=== PATIENT | male | born 1950 | race Caucasian/White ===

== ENCOUNTER 2023-03-13 04:40 | Emergency (ER) | payer MEDICARE, SELFPAY ==
[2023-03-13 04:45] VITALS: O2SAT 97
[2023-03-13 04:46] VITALS: BP 170/86; PULSE 83; RESP 20; TEMP 36.7; O2SAT 97; BMI 22.8
--- NOTE | 2023-03-13 05:12 | CRLHL7_ITS ---
For Patients: As a result of the Cures Act, medical imaging exams and procedure reports are released immediately into your electronic medical record. You may view this report before your referring provider. If you have questions, please contact your health care provider. INDICATION: Cough. Dyspnea. TECHNIQUE: Two views COMPARISON: 12/12/2020. FINDINGS: Patient positioning: The patient is not rotated. Adequate inspiration. Heart and mediastinum: The patient is status post CABG. The cardiomediastinal silhouette is stable in appearance. Lungs and pleural spaces: Clear lungs and pleural spaces. Interval resolution of previously noted left basilar subsegmental atelectasis. Unchanged slight elevation of the left hemidiaphragm. Bones and soft tissues: No acute findings. IMPRESSION: No acute cardiopulmonary process or significant incidental findings. Dictated by Ezeqiuel Hernandez MD @ 03/13/2023 6:37:08 AM (Electronically Signed)
[2023-03-13 05:17] VITALS: BP 145/66; PULSE 88; RESP 20; O2SAT 97
--- NOTE | 2023-03-13 05:17 | ED.GENADULT ---
HPI - General Adult General Chief complaint: Shortness of Breath/Dyspnea Stated complaint: Chills, hard time breathing. Time Seen by Provider: 03/13/23 04:46 Source: patient Mode of arrival: ambulatory Limitations: no limitations History of Present Illness HPI narrative: Patient presents with increased weakness, shortness of breath with chest discomfort for the past couple of days. Initially started as body aches and cough 2 days ago. No true fevers but feels like he could have 1. Says that his legs feel weak, when he tried to get up and go to work this morning, his legs buckled under him. There was no true loss of consciousness, no racing heart or palpitations. No seizures. Has not hit his head. Does report a history of prior kidney problems. Does have a history of coronary artery disease with quadruple bypass 13 years ago. No recent stress testing but he has had stents within the last few years. He does not believe that he takes any blood thinners but I would find that kind of hard to believe. It also looks like he is not on a statin, he is unsure why that was stopped. Notes and generalized achiness through the neck, shoulders and chest. No exertional cardiac symptoms. No nausea vomiting, no diarrhea. Has not tried any medications to help with his symptoms prior to coming to the ED. cough is nonproductive, no history of DVT or PE. Past medical history notable mainly for coronary artery disease with hypertension. Home meds are as listed in he does confirm these. No allergies. ROS notable for generalized body aches, chest discomfort, shortness of breath, fatigue and lightheadedness as described above, otherwise denies times 12 systems. Related Data Home Medications Medication Instructions Recorded Confirmed hydrochlorothiazide 12.5 mg tablet 12.5 mg PO DAILY 03/13/23 03/13/23 lisinopril 20 mg tablet 40 mg PO DAILY 03/13/23 03/13/23 metformin 500 mg tablet 500 mg PO BID 03/13/23 03/13/23 metoprolol tartrate 50 mg tablet 50 mg PO BID 03/13/23 03/13/23 Allergies Allergy/AdvReac Type Severity Reaction Status Date / Time No Known Drug Allergies Allergy Verified 03/13/23 04:51 [facility] Medical History Dyslipidemia ?E78.5 - Hyperlipidemia, unspecified (ICD-10) ASCVD (arteriosclerotic cardiovascular disease) ?I25.10 - Atherosclerotic heart disease of [place] coronary artery without angina pectoris (ICD-10) Adenomatous colon polyp ?D12.6 - Benign neoplasm of colon, unspecified (ICD-10) Hypertension ?I10 - Essential (primary) hypertension (ICD-10) Type 2 diabetes mellitus ?E11.9 - Type 2 diabetes mellitus without complications (ICD-10) WARD (dyspnea on exertion) ?R06.09 - Other forms of dyspnea (ICD-10) Stage 3a chronic kidney disease ?N18.31 - Chronic kidney disease, stage 3a (ICD-10) Chronic bronchitis ?J42 - Unspecified chronic bronchitis (ICD-10) Depression ?F32.A - Depression, unspecified (ICD-10) History of coronary angiogram ?Z98.890 - Other specified postprocedural states (ICD-10) Surgical History S/P insertion of non-drug eluting coronary artery stent ?Z95.5 - Presence of coronary angioplasty implant and graft (ICD-10) History of esophagogastroduodenoscopy (EGD) ?Z98.890 - Other specified postprocedural states (ICD-10) History of colonoscopy ?Z98.890 - Other specified postprocedural states (ICD-10) History of coronary artery bypass graft ?Z95.1 - Presence of aortocoronary bypass graft (ICD-10) History of angioplasty ?Z98.62 - Peripheral vascular angioplasty status (ICD-10) Social History Smoking Status: Never smoker Second hand tobacco smoke exposure: No How often do you have a drink containing alcohol: never AUDIT-C Alcohol total score: 0 Non-prescribed substance use: denies use Exam Const: Vital Signs, click to edit/add: Vital Signs - 24 hr 03/13/23 04:45 03/13/23 04:46 03/13/23 05:17 Temperature 98.0 F Pulse Rate 88 Pulse Rate [Right Pulse Oximeter] 83 Respiratory Rate 20 20 Blood Pressure 145/66 H Blood Pressure [Ri ght Upper Arm] 170/86 H Pulse Oximetry 97 97 97 Oxygen Delivery Me thod Room Air Documenting provider has reviewed patient's vital signs: yes Common normals: no apparent distress and alert General appearance: cooperative, comfortable and well kempt HENMT: Common normals: normocephalic Head and scalp: normocephalic Face and sinus: normal facial exam Mouth: oral and palatal mucosa normal Throat: posterior oropharynx normal Eye: Common normals: conjunctivae normal General eye: normal appearance of both eyes Conjunctiva: conjunctiva(e) normal Neck & C-Spine: Common normals: full ROM and no lymphadenopathy Resp: Common normals: normal respiratory effort, no use of accessory muscles and clear to auscultation bilaterally Effort & inspection: able to speak in complete sentences Auscultation: clear to auscultation bilaterally Cardio: Common normals: regular rate, regular rhythm, S1 normal heart sound, S2 normal heart sound and no murmurs Rate: regular rate Rhythm: regular rhythm Heart sounds: S1 normal and S2 normal GI: Common normals: Normal to inspection, nondistended, normoactive bowel sounds present, soft to palpation, non-tender, no hepatosplenomegaly and no masses Palpation: soft and no hepatosplenomegaly Extremity: Common normals: normal to inspection, normal capillary refill and no pedal edema Neuro: Sensorium/orientation: alert Speech: speech normal Motor exam: no movement abnormalities noted Psych: Common normals: speech normal Appearance: well kempt Attitude: engaged Speech: normal speech Insight: insight good Judgement: judgment good Skin: Common normals: no rashes or lesions noted General skin exam: no rashes or lesions noted Course Course ED Course: Fatigue, myalgias, weakness in patient with coronary artery disease. No tachycardia but certainly could be masked by beta-lanette usage. Suspect viral illness, likely COVID her influenza a. Because of his cardiac history, I do recommend basic lab work, cardiac enzymes, EKG. Chest x-ray and viral swabs. Will room give 1 L of normal saline over 2 hours while we await labs. Differential diagnosis also includes pneumonia, congestive heart failure, acute coronary syndrome, renal failure, electrolyte abnormality, dehydration, among others. Reevaluation(s) Time of Reevaluation #1: 06:17 Reevaluation #1: Updated patient on findings. We discussed the elevated D-dimer. This may be elevated due to his chronic kidney disease or other pathology besides possibly a blood clot. Troponins are not elevated, there is no tachycardia. He is feeling better after fluids. I counseled patient that I cannot necessarily exclude a blood clot but I do have concerns with performing a CT with contrast based on his kidney function. At this time, he agrees that he would rather not have the scan performed as he does agree that his symptoms are most likely caused by a viral illness. I counseled patient that I cannot be sure without doing a scan and if he is feeling more short of breath, has hemoptysis or chest wall pain, I would be concerned and would recommend that he come back to the emergency department right away. He was agreeable to watchful waiting regarding this. We also discussed signs and symptoms of leg swelling and or other signs that there could be a blood clot and he verbalizes understanding and agreement and would like to defer the scan at this time. For his hypokalemia, we will give 40 mEq of potassium p.o. x1 here. I counseled patient that I can send additional potassium for the next few days to his pharmacy. He would prefer to replace this nutritionally. I counseled him that if he can eat at least 1 moderate size potato or banana daily for the next 5 days, this should be sufficient. Counseled him that being on lisinopril can increased dizziness and lightheadedness when you are ill. We are not detecting any hypotension here but I would like for him to hold his lisinopril for 1 day and drink lots of fluids today. He reports that he does feel quite a bit better after the IV fluids. Still has no chest pain or palpitations. His creatinine is a little elevated compared to 3 years ago but sounds consistent with his outpatient results per his description. Counseled that unfortunately there can be false negatives with the COVID and influenza tests. He certainly could have a different virus altogether. X-ray is not suspicious for heart failure or pneumonia. I would like him off of work for the next 3 days. Alarm symptoms that would warrant repeat ED presentation were extensively reviewed. All questions answered. We discussed the risks and benefits of Tamiflu and or Paxlovid. Since he has tested negative and also has comorbid kidney disease, I do not recommend those medications and he agrees with my rationale. Will discharge home with rest, increased fluids, nutritional potassium replacement and primary care follow-up if not improving in 3-4 days. Vital Signs Vital signs: Initial Vital Signs Pulse Oximetry 97 03/13/23 04:45 Vital Signs Pulse Oximetry 97 03/13/23 04:45 Temperature 98.0 F 03/13/23 04:46 Pulse Rate 88 03/13/23 05:17 Respiratory Rate 20 03/13/23 05:17 Blood Pressure 145/66 H 03/13/23 05:17 Pulse Oximetry 97 03/13/23 05:17 Oxygen Delivery Method Room Air 03/13/23 04:46 Medications Administered Medications: Generic Name Dose Route Start Last Admin Trade Name Freq PRN Reason Stop Dose Admin Sodium Chloride 1,000 mls @ 500 mls/hr 03/13/23 05:13 03/13/23 05:25 0.9 % Sodium Chloride 1000 Ml IV 03/13/23 07:12 500 mls/hr .Q2H LOUANN Administration Discontinued Medications Generic Name Dose Route Start Last Admin Trade Name Freq PRN Reason Stop Dose Admin Acetaminophen 1,000 mg 03/13/23 05:23 03/13/23 05:26 Acetaminophen 500 Mg Tablet PO 03/13/23 05:24 1,000 mg ONCE ONE Administration Medical Decision Making Lab Data Lab results reviewed: Yes I reviewed the patient's lab results Lab results narrative: Mildly elevated inflammatory markers, no leukocytosis. Elevated D-dimer in the setting of chronic kidney disease. Creatinine elevated at 1.9 compared to baseline 3 years ago of 1.4, patient reported that this is similar to his outpatient levels. Mild hypokalemia, will be replaced here in the ED. Labs: Lab Results 03/13/23 03/13/23 03/13/23 Range/Units 04:47 05:12 05:20 WBC 7.20 (4.50-11.00) K/uL RBC 4.46 (4.30-5.90) m/uL Hgb 13.3 L (13.5-17.5) gm/dL Hct 39.4 (37.0-53.0) % MCV 88 (80-100) fL MCH 30 (26-34) pg MCHC 34 (32-36) gm/dL RDW Coeff of [place] 14.0 (11.5-15.5) % Plt Count 184 (140-440) K/uL Neut % (Auto) 87.2 H (42.0-72.0) % Lymph % (Auto) 4.0 L (20-44) % [place] % (Auto) 7.5 (0.0-11.0) % Eos % (Auto) 1.0 (0.0-7.0) % Baso % (Auto) 0.0 (0.0-3.0) % Neut # (Auto) 6.30 (1.7-7.0) K/uL Lymph # (Auto) 0.30 L (0.90-2.90) K/uL [place] # (Auto) 0.50 (0.00-0.90) K/UL Eos # (Auto) 0.07 (0.00-0.50) K/uL Baso # (Auto) 0.00 (0.00-0.30) K/uL Abs Immat Gran (auto) 0.02 (0.00-0.30) K/uL Imm/Tot Granulo (auto) 0.3 % D-Dimer Quant (PE/DVT) 1.85 H (0.00-0.50) ug/ml Sodium 137 (135-149) mmol/L Potassium 3.0 L (3.6-5.1) mmol/L Chloride 97 (96-114) mmol/L Carbon Dioxide 28 (20-32) mmol/L Anion Gap 12 (7-15) mEq/L BUN 30 (7-30) mg/dL Creatinine 1.9 H (0.5-1.5) mg/dL Estimated Creat Clear 33.32 Estimated GFR 37 ml/min Glucose 228 H (60-115) mg/dL Lactate 2.6 H (0.5-1.9) mmol/L Calcium 9.1 (8.4-10.6) mg/dL Total Bilirubin 1.4 (0.1-1.5) mg/dL AST 40 H (12-35) U/L ALT 31 (4-50) U/L Alkaline Phosphatase 116 (40-150) U/L Troponin I 0.01 (0.01-0.04) ng/mL C-Reactive Protein 6.3 H (0.5-1.0) mg/dL Total Protein 7.6 (6.0-8.3) g/dL Albumin 4.2 (3.3-5.0) g/dL SARS-CoV-2 (PCR) Negative SARS-CoV-2 (Negative) Influenza Type A (PCR) Negative PCR FLU A (Negative) Influenza Type B (PCR) Negative PCR FLU B (Negative) RSV (PCR) Negative PCR RSV (Negative) POC Troponin I 0.01 (0.01-0.04) ng/ml Imaging Data Chest x-ray: Attestation: I have reviewed the pertinent imaging results. My impression: No infiltrates, congestive heart failure or effusions. Radiologist's impression: Lungs and pleural spaces: Clear lungs and pleural spaces. Interval resolution of previously noted left basilar subsegmental atelectasis. Unchanged slight elevation of the left hemidiaphragm. Bones and soft tissues: No acute findings. IMPRESSION: No acute cardiopulmonary process or significant incidental findings. ECG Data Attestation: I personally reviewed and interpreted this ECG as follows: Prior ECG tracings: available for review Interpretation: Right bundle branch block, unchanged from past EKG reviewed from 12/12/2020. Overall sinus rhythm low, rate of 86 with otherwise normal intervals and no obvious signs of acute ST or T-wave abnormalities to indicate ischemia. Normal axis. Discharge Plan Discharge Clinical Impression: Influenza-like illness Patient Disposition: Home, Self-Care Condition: Stable Instructions: Influenza (DC) Additional Instructions: As we discussed, your symptoms seem consistent with either influenza or COVID. Unfortunately, these swabs are not perfect. Your tests for this illness are negative but the swabs can miss up to 1/3 of cases. It is okay for you to continue home COVID testing if you would really like to know if you are COVID positive, but this would not change my management today. There are medications which can reduce the intensity and severity of both influenza and COVID but they can be dangerous in the setting of kidney disease. In your case, I would not recommend that we use those medications. Your blood clotting test is a bit elevated. Without swelling in the legs, changes on your chest x-ray or other findings in the blood work that are suspicious, we have decided together not to pursue this further. There is a scan that can be done to look for blood clots in the lungs more closely but it does give risk to your kidneys. Since there are no signs of elevated troponins, elevated heart rate, swelling in your legs, low oxygen levels or other changes, I think we should hold off on looking for blood clots. I would like you off of work for the next 3 days minimum. If you are feeling better on , you could attempt to go back to work. If you need a longer extension of your leave of absence, this would need to come from your primary care doctor. Drink plenty of fluids. Because your potassium levels were a bit low, your given potassium tablets to take here in the ER. I would like for you to eat at least 1 banana and or potato daily for the next 5 days. I suspect that you felt a little more lightheaded in the setting of your illness because you are on lisinopril. I would like for you to hold off taking this medication for just 1 day. Please continue to take your hydrochlorothiazide and metoprolol as prescribed. If your symptoms have not started to improve by Monday, I would recommend that you call your primary care provider for a follow-up appointment. I would like her kidney function rechecked if you are not improving early next week with your potassium and additional testing if you are not improving. If you have any severe shortness of breath or severe weakness, you should come back to the emergency department. Activity Level: Activity as Tolerated Discharge Diet: Regular Prescriptions: No Action metformin 500 mg tablet 500 mg PO BID lisinopril 20 mg tablet 40 mg PO DAILY metoprolol tartrate 50 mg tablet 50 mg PO BID hydrochlorothiazide 12.5 mg tablet 12.5 mg PO DAILY Follow Up/Referrals: Leigh Siegel DO [Primary Care Provider] - Stand Alone Forms: [facility] Info Instructions
[2023-03-13 05:21] LABS: Lactate* 2.6 mmol/L (0.5-1.9)
[2023-03-13 05:22] LABS: Eosinophils Absolute Auto 0.07 K/uL (0.00-0.50); Hematocrit 39.4 % (37.0-53.0); Hemoglobin* 13.3 gm/dL (13.5-17.5); Immature Granulocytes Abs Auto 0.02 K/uL (0.00-0.30); Immature Granulocytes Pct Auto 0.3 %; Mean Corpuscular HGB Conc 34 gm/dL (32-36); Mean Corpuscular Hemoglobin 30 pg (26-34); Mean Corpuscular Volume 88 fL (80-100); Monocytes Percent Auto 7.5 % (0.0-11.0); Neutrophils Percent Auto 87.2 % (42.0-72.0); Platelet Count* 184 K/uL (140-440); Red Blood Count 4.46 m/uL (4.30-5.90)
[2023-03-13 05:25] LABS: PCR FLU A Negative PCR FLU A (Negative); PCR FLU B Negative PCR FLU B (Negative); PCR RSV Negative PCR RSV (Negative); SARS PCR* Negative SARS-CoV-2 (Negative)
[2023-03-13 05:25] LABS: Slide Review Reflex No
[2023-03-13] MEDS: 0.9 % SODIUM CHLORIDE 1000 ml 1,000 ML 500 ML IV (05:25)
[2023-03-13] MEDS: ACETAMINOPHEN 500 MG TABLET 1000 MG PO (05:26)
[2023-03-13 05:30] LABS: Troponin, Point-of-Care* 0.01 ng/ml (0.01-0.04)
[2023-03-13 05:37] LABS: Albumin* 4.2 g/dL (3.3-5.0); Chloride* 97 mmol/L (96-114); Sodium* 137 mmol/L (135-149)
[2023-03-13 05:39] LABS: Bilirubin Total* 1.4 mg/dL (0.1-1.5); Creatinine* 1.9 mg/dL (0.5-1.5); Est. Creatinine Clearance* 33.32; Estimated Glomerular Filt Rate 37 ml/min
[2023-03-13 05:40] LABS: Alanine Aminotransferase* 31 U/L (4-50); Alkaline Phosphatase* 116 U/L (40-150); Anion Gap 12 mEq/L (7-15); Aspartate Amino Transferase* 40 U/L (12-35); Blood Urea Nitrogen* 30 mg/dL (7-30); Carbon Dioxide* 28 mmol/L (20-32); Glucose* 228 mg/dL (60-115); Total Protein* 7.6 g/dL (6.0-8.3)
[2023-03-13 05:41] LABS: Calcium* 9.1 mg/dL (8.4-10.6)
[2023-03-13 05:43] LABS: C Reactive Protein* 6.3 mg/dL (0.5-1.0); D Dimer Quantitative* 1.85 ug/ml (0.00-0.50)
[2023-03-13 05:59] LABS: Troponin I* 0.01 ng/mL (0.01-0.04)
[2023-03-13] MEDS: POTASSIUM CHLORIDE 10 MEQ CAPSULE ER 40 MEQ PO (06:30)
[2023-03-13 06:45] VITALS: BP 154/84; PULSE 87; RESP 20; TEMP 36.9; O2SAT 97
[2023-03-13 06:47] VITALS: BP 154/84; PULSE 87; RESP 20; TEMP 36.9
== END 2023-03-13 06:30 | disposition home or self-care (01) ==
PROVIDERS: Emergency Provider Family Medicine; PCP Family Medicine
DX: J10.1 Influenza due to other identified influenza virus with other respiratory manifestations (principal)
CPT/HCPCS: 36415; 71046; 80053; 81003; 83605; 84484; 85025; 85379; 86140; 87631; 93005; 94761; 99284; A9270; J7030

== ENCOUNTER 2023-03-16 07:06 | Emergency (ER) | payer MEDICARE, SELFPAY ==
[2023-03-16 07:12] VITALS: BP 147/88; PULSE 86; RESP 18; TEMP 37; O2SAT 96; BMI 22.8
--- NOTE | 2023-03-16 07:20 | ED.DIZZY ---
HPI - Dizziness General Time Seen by Provider: 07:20 <Ashish Molina MD - Last Filed: 03/30/23 08:19> Date Seen: 03/16/23 <Ashish Molina MD - Last Filed: 03/30/23 08:19> Chief Complaint: Dizziness/Vertigo <Ashish Molina MD - Last Filed: 03/30/23 08:19> Stated Complaint: tight chest, light headead, weak <Ashish Molina MD - Last Filed: 03/30/23 08:19> Time Seen by Provider: 03/16/23 07:20 <Ashish Molina MD - Last Filed: 03/30/23 08:19> Source: patient, RN notes reviewed and old records reviewed <Ashish Molina MD - Last Filed: 03/30/23 08:19> Mode of arrival: ambulatory <Ashish Molina MD - Last Filed: 03/30/23 08:19> Limitations: no limitations <Ashish Molina MD - Last Filed: 03/30/23 08:19> History of Present Illness HPI Narrative: 72-year-old male who presents today with lightheadedness and weakness. Prior history of coronary disease and stent placement, CABG, chronic kidney disease. Patient was seen on March 13 with flu-like illness, negative evaluation at that time including normal EKG, normal CBC, slightly elevated creatinine and slight low potassium, respiratory panel negative. D-dimer was positive but no advanced imaging was done. Patient was feeling better and went to work today, got lightheaded, chest pain and shortness of breath, and vomited. Denies runny nose, sore throat, cough, abdominal pain, diarrhea. No room spinning dizziness. <Ashish Molina MD - Last Filed: 03/30/23 08:19> Related Data Home Medications: Home Medications Medication Instructions Recorded Confirmed hydrochlorothiazide 12.5 mg tablet 12.5 mg PO DAILY 03/13/23 03/16/23 lisinopril 20 mg tablet 40 mg PO DAILY 03/13/23 03/16/23 metformin 500 mg tablet 500 mg PO BID 03/13/23 03/16/23 metoprolol tartrate 50 mg tablet 50 mg PO BID 03/13/23 03/16/23 <Ashish Molina MD - Last Filed: 03/30/23 08:19> Allergies/Adverse Reactions: Allergies Allergy/AdvReac Type Severity Reaction Status Date / Time No Known Drug Allergies Allergy Verified 03/16/23 07:11 <Ashish Molina MD - Last Filed: 03/30/23 08:19> [facility] Medical History: Medical History Dyslipidemia ?E78.5 - Hyperlipidemia, unspecified (ICD-10) ASCVD (arteriosclerotic cardiovascular disease) ?I25.10 - Atherosclerotic heart disease of [place] coronary artery without angina pectoris (ICD-10) Adenomatous colon polyp ?D12.6 - Benign neoplasm of colon, unspecified (ICD-10) Hypertension ?I10 - Essential (primary) hypertension (ICD-10) Type 2 diabetes mellitus ?E11.9 - Type 2 diabetes mellitus without complications (ICD-10) WARD (dyspnea on exertion) ?R06.09 - Other forms of dyspnea (ICD-10) Stage 3a chronic kidney disease ?N18.31 - Chronic kidney disease, stage 3a (ICD-10) Chronic bronchitis ?J42 - Unspecified chronic bronchitis (ICD-10) Depression ?F32.A - Depression, unspecified (ICD-10) History of coronary angiogram ?Z98.890 - Other specified postprocedural states (ICD-10) <Ashish Molina MD - Last Filed: 03/30/23 08:19> Surgical History: Surgical History S/P insertion of non-drug eluting coronary artery stent ?Z95.5 - Presence of coronary angioplasty implant and graft (ICD-10) History of esophagogastroduodenoscopy (EGD) ?Z98.890 - Other specified postprocedural states (ICD-10) History of colonoscopy ?Z98.890 - Other specified postprocedural states (ICD-10) History of coronary artery bypass graft ?Z95.1 - Presence of aortocoronary bypass graft (ICD-10) History of angioplasty ?Z98.62 - Peripheral vascular angioplasty status (ICD-10) <Ashish Molina MD - Last Filed: 03/30/23 08:19> Social History: Social History Smoking Status: Never smoker Second hand tobacco smoke exposure: No How often do you have a drink containing alcohol: never AUDIT-C Alcohol total score: 0 Non-prescribed substance use: denies use <Ashish Molina MD - Last Filed: 03/30/23 08:19> Exam Narrative: Exam Narrative: General: Well-developed and well-nourished, no acute distress Head: Atraumatic and normocephalic Eyes: Pupils are equal reactive, extraocular motions intact, conjunctiva clear ENT: External nose and ears are normal, posterior pharynx without erythema or exudate Neck: No midline cervical tenderness, full spontaneous range of motion the neck, trachea midline, no adenopathy Heart: Regular rate and rhythm no murmurs or thrills Lungs: Clear to auscultation bilaterally without wheezes or crackles Abdomen: Soft, nontender, nondistended with active bowel sounds Musculoskeletal: No tenderness, deformity, or edema Neurologic: Awake, alert, and oriented x3, no gross focal neurologic deficits, cranial nerves intact as tested Psych: Mood and affect are appropriate Skin: No rashes <Ashish Molina MD - Last Filed: 03/30/23 08:19> Const: Vital Signs, click to edit/add: Vital Signs - 24 hr 03/16/23 07:12 03/16/23 08:00 03/16/23 09:05 Temperature 98.6 F Pulse Rate 76 Pulse Rate [Pulse Oximeter] 86 75 Respiratory Rate 18 16 Blood Pressure 138/80 Blood Pressure [Ri ght Upper Arm] 147/88 H 125/71 Pulse Oximetry 96 94 95 Oxygen Delivery Me thod Room Air Room Air 03/16/23 09:06 03/16/23 09:30 03/16/23 09:32 Temperature Pulse Rate 75 77 74 Pulse Rate [Pulse Oximeter] Respiratory Rate Blood Pressure 131/80 Blood Pressure [Ri ght Upper Arm] Pulse Oximetry 95 97 96 Oxygen Delivery Me thod <Ashish Molina MD - Last Filed: 03/30/23 08:19> Vital Signs, click to edit/add: Vital Signs - 24 hr 03/16/23 07:12 03/16/23 08:00 02/08/24 09:05 Temperature 98.6 F Pulse Rate 76 Pulse Rate [Pulse Oximeter] 86 75 Respiratory Rate 18 16 Blood Pressure 138/80 Blood Pressure [Ri ght Upper Arm] 147/88 H 125/71 Pulse Oximetry 96 94 95 Oxygen Delivery Me thod Room Air Room Air 03/16/23 09:06 03/16/23 09:30 03/16/23 09:32 Temperature Pulse Rate 75 77 74 Pulse Rate [Pulse Oximeter] Respiratory Rate Blood Pressure 131/80 Blood Pressure [Ri ght Upper Arm] Pulse Oximetry 95 97 96 Oxygen Delivery Me thod <Shabnam Rodarte MD - Last Filed: 03/16/23 13:50> Course Course ED Course: Patient seen examined, prior records reviewed. Patient recently seen with weakness, nausea, influenza like illness and negative evaluation other than positive D-dimer. Was feeling better but then went to work and became lightheaded, dizzy, with chest pain and shortness of breath, and vomited. Patient is well-appearing in the emergency department with stable vital signs. No abdominal pain or tenderness, no indication for abdominal CT at this time. Labs are ordered along with CT PE protocol as patient had a previously positive D-dimer but did not have CT scan at that time. Plan to sign out to oncoming provider at 8:00 AM. <Ashish Molina MD - Last Filed: 03/30/23 08:19> Patient seen examined, prior records reviewed. Patient recently seen with weakness, nausea, influenza like illness and negative evaluation other than positive D-dimer. Was feeling better but then went to work and became lightheaded, dizzy, with chest pain and shortness of breath, and vomited. Patient is well-appearing in the emergency department with stable vital signs. No abdominal pain or tenderness, no indication for abdominal CT at this time. Labs are ordered along with CT PE protocol as patient had a previously positive D-dimer but did not have CT scan at that time. Plan to sign out to oncoming provider at 8:00 AM. CBC returned with a normal white cell count, hemoglobin is 11.6, down from 13.3 three days ago. Normal platelet count. Chemistries are unchanged from a couple of days ago, he remains hypokalemic with a potassium of 3 and an elevated creatinine at 1.9. Chest CT, PE protocol reveals some bronchial thickening, no PE or pneumonia. UA is positive for 2+ protein, 2+ blood, greater than 8 urinobiligen. Unfortunately, I do not have a baseline to compare this to. Because of this we have sent out for a peripheral smear of the patient's CBC. I did review LFTs from previous visit on 03/13/2023, LFTs were unremarkable at that time. <Shabnam Rodarte MD - Last Filed: 03/16/23 13:50> Reevaluation(s) Time of Reevaluation #1: 08:00 <Ashish Molina MD - Last Filed: 03/30/23 08:19> Reevaluation #1: Signout to oncoming provider. <Ashish Molina MD - Last Filed: 03/30/23 08:19> Vital Signs Vital signs: Initial Vital Signs Temperature 98.6 F 03/16/23 07:12 Temperature Source Temporal Artery Scan 03/16/23 07:12 Pulse Rate 86 03/16/23 07:12 Respiratory Rate 18 03/16/23 07:12 Blood Pressure 147/88 H 03/16/23 07:12 Blood Pressure Mean 107 H 03/16/23 07:12 Blood Pressure Position Sitting 03/16/23 07:12 Pulse Oximetry 96 03/16/23 07:12 Oxygen Delivery Method Room Air 03/16/23 07:12 Vital Signs Temperature 98.6 F 03/16/23 07:12 Pulse Rate 86 03/16/23 07:12 Respiratory Rate 18 03/16/23 07:12 Blood Pressure 147/88 H 03/16/23 07:12 Pulse Oximetry 96 03/16/23 07:12 Oxygen Delivery Method Room Air 03/16/23 07:12 Temperature 98.6 F 03/16/23 07:12 Pulse Rate 74 03/16/23 09:32 Respiratory Rate 16 03/16/23 08:00 Blood Pressure 131/80 03/16/23 09:32 Pulse Oximetry 96 03/16/23 09:32 Oxygen Delivery Method Room Air 03/16/23 08:00 <Ashish Molina MD - Last Filed: 03/30/23 08:19> Initial Vital Signs Temperature 98.6 F 03/16/23 07:12 Temperature Source Temporal Artery Scan 03/16/23 07:12 Pulse Rate 86 03/16/23 07:12 Respiratory Rate 18 03/16/23 07:12 Blood Pressure 147/88 H 03/16/23 07:12 Blood Pressure Mean 107 H 03/16/23 07:12 Blood Pressure Position Sitting 03/16/23 07:12 Pulse Oximetry 96 03/16/23 07:12 Oxygen Delivery Method Room Air 03/16/23 07:12 Vital Signs Temperature 98.6 F 03/16/23 07:12 Pulse Rate 86 03/16/23 07:12 Respiratory Rate 18 03/16/23 07:12 Blood Pressure 147/88 H 03/16/23 07:12 Pulse Oximetry 96 03/16/23 07:12 Oxygen Delivery Method Room Air 03/16/23 07:12 Temperature 98.6 F 03/16/23 07:12 Pulse Rate 74 03/16/23 09:32 Respiratory Rate 16 03/16/23 08:00 Blood Pressure 131/80 03/16/23 09:32 Pulse Oximetry 96 03/16/23 09:32 Oxygen Delivery Method Room Air 03/16/23 08:00 <Shabnam Rodarte MD - Last Filed: 03/16/23 13:50> Medications Administered Medications: Discontinued Medications Generic Name Dose Route Start Last Admin Trade Name Freq PRN Reason Stop Dose Admin Potassium Chloride 40 meq 03/16/23 08:26 03/16/23 08:57 Potassium Chloride 10 Meq Capsule Er PO 03/16/23 08:27 40 meq ONCE ONE Administration <Ashish Molina MD - Last Filed: 03/30/23 08:19> Discontinued Medications Generic Name Dose Route Start Last Admin Trade Name Freq PRN Reason Stop Dose Admin Potassium Chloride 40 meq 03/16/23 08:26 03/16/23 08:57 Potassium Chloride 10 Meq Capsule Er PO 03/16/23 08:27 40 meq ONCE ONE Administration <Shabnam Rodarte MD - Last Filed: 03/16/23 13:50> MDM - Dizziness MDM Narrative Medical decision making narrative: 72-year-old male, not feeling well. No acute findings today. We did rule out PE and pneumonia. Recent testing for COVID, influenza and RSV negative. Cardiac monitoring unremarkable, normal troponin and unchanged EKG. Patient did not have any neurologic deficits. Currently asymptomatic, aside from feeling fatigued. Drop in hemoglobin, patient did receive IV fluid last time he was here. However, I do think this needs to be followed up on. A repeat hemoglobin is recommended for Monday. Of note, patient states that his last colonoscopy was about 5 years ago. We discussed rest, nutrition, fluid hydration and reasons to return to the ER. <Shabnam Rodarte MD - Last Filed: 03/16/23 13:50> Medical Records Attestation: I reviewed the patient's medical records. <Shabnam Rodarte MD - Last Filed: 03/16/23 13:50> Lab Data Attestation: I reviewed the patient's lab results. <Shabnam Rodarte MD - Last Filed: 03/16/23 13:50> Labs: Lab Results 03/16/23 03/16/23 Range/Units 07:35 09:04 WBC 5.32 (4.50-11.00) K/uL RBC 3.82 L (4.30-5.90) m/uL Hgb 11.6 L (13.5-17.5) gm/dL Hct 33.7 L (37.0-53.0) % MCV 88 (80-100) fL MCH 30 (26-34) pg MCHC 34 (32-36) gm/dL RDW Coeff of [place] 13.9 (11.5-15.5) % Plt Count 165 (140-440) K/uL Neut % (Auto) 85.3 H (42.0-72.0) % Lymph % (Auto) 6.4 L (20-44) % [place] % (Auto) 7.0 (0.0-11.0) % Eos % (Auto) 0.9 (0.0-7.0) % Baso % (Auto) 0.0 (0.0-3.0) % Neut # (Auto) 4.50 (1.7-7.0) K/uL Lymph # (Auto) 0.30 L (0.90-2.90) K/uL [place] # (Auto) 0.40 (0.00-0.90) K/UL Eos # (Auto) 0.05 (0.00-0.50) K/uL Baso # (Auto) 0.00 (0.00-0.30) K/uL Abs Immat Gran (auto) 0.02 (0.00-0.30) K/uL Imm/Tot Granulo (auto) 0.4 % Peripher Smr Path Cons See Scanned Report Absolute Retic 0.05 (0.03-0.08) # Percent Retic 1.2 (0.5-2.0) % Immature Retic Fraction 12.1 (2.3-13.4) % Retic Hgb Equivalent 26.1 L (29.0-35.0) pg Sodium 136 (135-149) mmol/L Potassium 3.0 L (3.6-5.1) mmol/L Chloride 98 (96-114) mmol/L Carbon Dioxide 24 (20-32) mmol/L Anion Gap 14 (7-15) mEq/L BUN 29 (7-30) mg/dL Creatinine 1.9 H (0.5-1.5) mg/dL Estimated Creat Clear 33.32 Estimated GFR 37 ml/min Glucose 261 H (60-115) mg/dL Calcium 9.1 (8.4-10.6) mg/dL Magnesium 1.5 (1.5-2.6) mg/dL NT-Pro-B Natriuret Pep 1960 pg/mL Urine Color [place] A (Yellow) Urine Appearance Slightly Cloudy A (Clear) Urine pH 5.5 (5.0-8.5) Ur Specific [place] 1.015 (1.000-1.030) Urine Protein 2+ A (Negative) Urine Glucose (UA) Negative (Negative) Urine Ketones Negative (Negative) Urine Blood 2+ A (Negative) Urine Nitrite Negative (Negative) Urine Bilirubin 1+ A (Negative) Urine Urobilinogen >=8.0 A (0.2-1.0) Ur Leukocyte Esterase Negative (Negative) Urine RBC 0-2 (0-2) Urine WBC 0-2 (0-5) Ur Squamous Epith Cells None (None-Few) Amorphous Sediment Moderate A (None) Urine Bacteria Few A (None) POC Troponin I 0.00 L (0.01-0.04) ng/ml <Ashish Molina MD - Last Filed: 03/30/23 08:19> Lab Results 03/16/23 03/16/23 Range/Units 07:35 09:04 WBC 5.32 (4.50-11.00) K/uL RBC 3.82 L (4.30-5.90) m/uL Hgb 11.6 L (13.5-17.5) gm/dL Hct 33.7 L (37.0-53.0) % MCV 88 (80-100) fL MCH 30 (26-34) pg MCHC 34 (32-36) gm/dL RDW Coeff of [place] 13.9 (11.5-15.5) % Plt Count 165 (140-440) K/uL Neut % (Auto) 85.3 H (42.0-72.0) % Lymph % (Auto) 6.4 L (20-44) % [place] % (Auto) 7.0 (0.0-11.0) % Eos % (Auto) 0.9 (0.0-7.0) % Baso % (Auto) 0.0 (0.0-3.0) % Neut # (Auto) 4.50 (1.7-7.0) K/uL Lymph # (Auto) 0.30 L (0.90-2.90) K/uL [place] # (Auto) 0.40 (0.00-0.90) K/UL Eos # (Auto) 0.05 (0.00-0.50) K/uL Baso # (Auto) 0.00 (0.00-0.30) K/uL Abs Immat Gran (auto) 0.02 (0.00-0.30) K/uL Imm/Tot Granulo (auto) 0.4 % Peripher Smr Path Cons See Scanned Report Absolute Retic 0.05 (0.03-0.08) # Percent Retic 1.2 (0.5-2.0) % Immature Retic Fraction 12.1 (2.3-13.4) % Retic Hgb Equivalent 26.1 L (29.0-35.0) pg Sodium 136 (135-149) mmol/L Potassium 3.0 L (3.6-5.1) mmol/L Chloride 98 (96-114) mmol/L Carbon Dioxide 24 (20-32) mmol/L Anion Gap 14 (7-15) mEq/L BUN 29 (7-30) mg/dL Creatinine 1.9 H (0.5-1.5) mg/dL Estimated Creat Clear 33.32 Estimated GFR 37 ml/min Glucose 261 H (60-115) mg/dL Calcium 9.1 (8.4-10.6) mg/dL Magnesium 1.5 (1.5-2.6) mg/dL NT-Pro-B Natriuret Pep 1960 pg/mL Urine Color [place] A (Yellow) Urine Appearance Slightly Cloudy A (Clear) Urine pH 5.5 (5.0-8.5) Ur Specific [place] 1.015 (1.000-1.030) Urine Protein 2+ A (Negative) Urine Glucose (UA) Negative (Negative) Urine Ketones Negative (Negative) Urine Blood 2+ A (Negative) Urine Nitrite Negative (Negative) Urine Bilirubin 1+ A (Negative) Urine Urobilinogen >=8.0 A (0.2-1.0) Ur Leukocyte Esterase Negative (Negative) Urine RBC 0-2 (0-2) Urine WBC 0-2 (0-5) Ur Squamous Epith Cells None (None-Few) Amorphous Sediment Moderate A (None) Urine Bacteria Few A (None) POC Troponin I 0.00 L (0.01-0.04) ng/ml <Shabnam Rodarte MD - Last Filed: 03/16/23 13:50> Imaging Data Chest CT PE: Attestation: I have reviewed the pertinent imaging results. <Shabnam Rodarte MD - Last Filed: 03/16/23 13:50> Radiologist's impression: Chest pain, dyspnea Technique: Volumetric multidetector CT images of the chest were obtained after the administration of IV contrast. 95 cc Isovue 370 low osmolar intravenous contrast Comparison: None available. Findings: The thoracic inlet and thyroid gland are unremarkable. The thoracic aorta is non aneurysmal with scattered atherosclerotic calcification. There is prior median sternotomy and coronary artery bypass grafting. There is no central filling defect to suggest pulmonary embolism. There is no mediastinal, hilar or axillary adenopathy. There is mild to moderate central bronchial thickening with minimal mucoid impaction of the lower lobe bronchi. There is peripheral atelectasis and parenchymal scar. There is no pneumothorax or pleural effusion. There is no evidence of pulmonary mass or suspicious pulmonary nodule. The partially visualized upper abdominal viscera are within normal limits. The thoracic vertebral body heights are grossly maintained with minimal endplate subchondral cystic changes and Schmorl`s defects. There is no significant spondylolisthesis or displaced fracture. Impression: There is mild to moderate central bronchial thickening. Minimal dependent basilar atelectasis. No evidence of dense consolidation or pulmonary embolus. <Shabnam Rodarte MD - Last Filed: 03/16/23 13:50> ECG Data Attestation: I personally reviewed and interpreted this ECG as follows: <Ashish Molina MD - Last Filed: 03/30/23 08:19> ECG interpretation date: 03/16/23 <Ashish Molina MD - Last Filed: 03/30/23 08:19> ECG interpretation time: 07:23 <Ashish Molina MD - Last Filed: 03/30/23 08:19> Prior ECG tracings: available for review <Ashish Molina MD - Last Filed: 03/30/23 08:19> Interpretation: Performed at 7:23 a.m. demonstrates sinus rhythm right bundle-branch block, nonspecific T-wave changes, rate 81, QTC 478, IL 200. Compared to prior March 13, no acute change <Ashish Molina MD - Last Filed: 03/30/23 08:19> Discharge Plan Discharge Clinical Impression: Lightheadedness, Nausea and vomiting <Ashish Molina MD - Last Filed: 03/30/23 08:19> Patient Disposition: Home, Self-Care <Ashish Molina MD - Last Filed: 03/30/23 08:19> Condition: Stable <Ashish Molina MD - Last Filed: 03/30/23 08:19> Additional Instructions: Make sure you are resting, increasing your fluid intake and eating nutritious meals over the next few days. I do recommend you follow-up with your primary care provider on Monday or Monday and have your hemoglobin rechecked. You should also have a repeat urine test. If you feel that you are getting worse instead of better, return to the ER. <Ashish Molina MD - Last Filed: 03/30/23 08:19> Prescriptions: No Action metformin 500 mg tablet 500 mg PO BID lisinopril 20 mg tablet 40 mg PO DAILY metoprolol tartrate 50 mg tablet 50 mg PO BID hydrochlorothiazide 12.5 mg tablet 12.5 mg PO DAILY <Ashish Molina MD - Last Filed: 03/30/23 08:19> Follow Up/Referrals: Leigh Sieegl DO [Primary Care Provider] - <Ashish Molina MD - Last Filed: 03/30/23 08:19> Stand Alone Forms: [facility] Info Instructions <Ashish Molina MD - Last Filed: 03/30/23 08:19>
--- NOTE | 2023-03-16 07:32 | CRLHL7_ITS ---
For Patients: As a result of the Century Cures Act, medical imaging exams and procedure reports are released immediately into your electronic medical record. You may view this report before your referring provider. If you have questions, please contact your health care provider. Indication: Chest pain, dyspnea Technique: Volumetric multidetector CT images of the chest were obtained after the administration of IV contrast. 95 cc Isovue 370 low osmolar intravenous contrast Comparison: None available. Findings: The thoracic inlet and thyroid gland are unremarkable. The thoracic aorta is non aneurysmal with scattered atherosclerotic calcification. There is prior median sternotomy and coronary artery bypass grafting. There is no central filling defect to suggest pulmonary embolism. There is no mediastinal, hilar or axillary adenopathy. There is mild to moderate central bronchial thickening with minimal mucoid impaction of the lower lobe bronchi. There is peripheral atelectasis and parenchymal scar. There is no pneumothorax or pleural effusion. There is no evidence of pulmonary mass or suspicious pulmonary nodule. The partially visualized upper abdominal viscera are within normal limits. The thoracic vertebral body heights are grossly maintained with minimal endplate subchondral cystic changes and Schmorl`s defects. There is no significant spondylolisthesis or displaced fracture. Impression: There is mild to moderate central bronchial thickening. Minimal dependent basilar atelectasis. No evidence of dense consolidation or pulmonary embolus. Please note that all CT scans at this facility use dose modulation, iterative reconstruction, and/or weight-based dosing when appropriate to reduce radiation dose to as low as reasonably achievable. Dictated by Ferdinand Mckinney MD @ 03/16/2023 9:20:13 AM (Electronically Signed)
[2023-03-16 07:57] LABS: Eosinophils Absolute Auto 0.05 K/uL (0.00-0.50); Eosinophils Percent Auto 0.9 % (0.0-7.0); Hematocrit 33.7 % (37.0-53.0); Hemoglobin* 11.6 gm/dL (13.5-17.5); Immature Granulocytes Abs Auto 0.02 K/uL (0.00-0.30); Immature Granulocytes Pct Auto 0.4 %; Lymphocytes Percent Auto 6.4 % (20-44); Mean Corpuscular HGB Conc 34 gm/dL (32-36); Mean Corpuscular Hemoglobin 30 pg (26-34); Mean Corpuscular Volume 88 fL (80-100); Neutrophils Percent Auto 85.3 % (42.0-72.0); Platelet Count* 165 K/uL (140-440); RDW Coefficient of Variation % 13.9 % (11.5-15.5); Red Blood Count 3.82 m/uL (4.30-5.90); White Blood Count* 5.32 K/uL (4.50-11.00)
[2023-03-16 08:00] VITALS: BP 125/71; PULSE 75; RESP 16; O2SAT 94
[2023-03-16 08:03] LABS: Chloride* 98 mmol/L (96-114); Sodium* 136 mmol/L (135-149)
[2023-03-16 08:06] LABS: Anion Gap 14 mEq/L (7-15); Blood Urea Nitrogen* 29 mg/dL (7-30); Carbon Dioxide* 24 mmol/L (20-32); Glucose* 261 mg/dL (60-115)
[2023-03-16 08:07] LABS: Calcium* 9.1 mg/dL (8.4-10.6); Magnesium* 1.5 mg/dL (1.5-2.6)
[2023-03-16 08:19] LABS: Creatinine* 1.9 mg/dL (0.5-1.5); Est. Creatinine Clearance* 33.32; Estimated Glomerular Filt Rate 37 ml/min
[2023-03-16 08:21] LABS: NT Pro B Type NatriureticPept* 1960 pg/mL
[2023-03-16 08:27] LABS: Slide Review Reflex No
[2023-03-16] MEDS: POTASSIUM CHLORIDE 10 MEQ CAPSULE ER 40 MEQ PO (08:57)
[2023-03-16 09:05] VITALS: BP 138/80; PULSE 76; O2SAT 95
[2023-03-16 09:06] VITALS: PULSE 75; O2SAT 95
[2023-03-16 09:15] LABS: Appearance Urine Slightly Cloudy (Clear); Bilirubin Urine 1+ (Negative); Blood Urine 2+ (Negative); Color Urine Amber (Yellow); Glucose Urine Negative (Negative); Ketones Urine Negative (Negative); Leukocyte Esterase Urine Negative (Negative); Nitrite Urine Negative (Negative); Protein Urine 2+ (Negative); Specific Gravity Urine 1.015 (1.000-1.030); Urobilinogen Urine >=8.0 (0.2-1.0); pH Urine 5.5 (5.0-8.5)
[2023-03-16 09:30] VITALS: PULSE 77; O2SAT 97
[2023-03-16 09:31] LABS: RBC Urine 0-2 (0-2); WBC Urine 0-2 (0-5)
[2023-03-16 09:32] VITALS: BP 131/80; PULSE 74; O2SAT 96
[2023-03-16 09:32] LABS: Amorphous Sediment Urine Moderate; Bacteria Urine Few
[2023-03-16 09:56] LABS: Immature Reticulocyte Fraction 12.1 % (2.3-13.4); Reticulocyte Hemoglobin Equivi 26.1 pg (29.0-35.0); Reticulocyte Percent 1.2 % (0.5-2.0); Reticulocytes Absolute 0.05 # (0.03-0.08)
== END 2023-03-16 09:54 | disposition home or self-care (01) ==
PROVIDERS: Family Medicine; Emergency Provider Family Medicine; PCP Family Medicine
DX: R42 Dizziness and giddiness (principal); R11.2 Nausea with vomiting, unspecified
CPT/HCPCS: 36415; 71275; 80048; 81001; 83735; 83880; 84484; 85025; 85045; 87086; 93005; 99284; 99285; A9270; Q9967

== ENCOUNTER 2023-10-15 10:20 | Emergency (ER) | payer MEDICARE, SELFPAY ==
[2023-10-15 10:24] VITALS: BP 187/86; PULSE 58; RESP 18; TEMP 36.6; O2SAT 98; BMI 25.1
--- NOTE | 2023-10-15 11:12 | CRLHL7_ITS ---
For Patients: As a result of the Century Cures Act, medical imaging exams and procedure reports are released immediately into your electronic medical record. You may view this report before your referring provider. If you have questions, please contact your health care provider. INDICATION: .R ARM NUMBNESS TECHNIQUE: Head CT without contrast. COMPARISON: None. FINDINGS: Periventricular areas of low attenuation, likely due to chronic small vessel ischemic changes. Generalized volume loss. Atherosclerosis. No intracranial hemorrhage. No discrete mass or mass effect. There is no midline shift. The basilar cisterns are patent. No hydrocephalus. The chinchilla-white matter interface is otherwise preserved. No acute osseous abnormality. No extracalvarial soft tissue abnormality. The mastoid air cells are clear. The paranasal sinuses are well-aerated. The visualized portions of the orbits and globes are unremarkable. IMPRESSION: No acute intracranial process per unenhanced head CT. Please note that all CT scans at this facility use dose modulation, iterative reconstruction, and/or weight-based dosing when appropriate to reduce radiation dose to as low as reasonably achievable. Dictated by Jimbo Aguillon MD @ 10/15/2023 12:03:41 PM (Electronically Signed)
--- NOTE | 2023-10-15 11:24 | ED_ITS ---
HPI - General Adult General Date Seen: 10/15/23 Chief complaint: Extremity Pain/Injury, Upper Stated complaint: R arm numb Time Seen by Provider: 10/15/23 10:54 Source: patient Mode of arrival: ambulatory Limitations: no limitations History of Present Illness HPI narrative: Patient is a 72-year-old male presenting to emergency department for right arm numbness. He states the numbness has been going on for the past 5 days. She states he 1st ready starts to notice it on 10/10/2023. Numbness seems to wax and wane. States that is always slightly now but sometimes the numbness seems worst . It is worst in his right shoulder. He also states sometimes the numbness makes it hard to hold pills in his hand because he can not feel the pills. States he is able to use his arm normally and only concern is the numbness. He does describe numbness as a tingling sensation. Denies ever having symptoms like this before. Does state he has been having shoulder issues for the past few months ago time injection about 1 month ago which seemed to help for a day but then the pain came back. Denies weakness to that arm. The lightheadedness, dizziness, headache, vision changes, nausea, abdominal pain, shortness of breath. Does states he has some very mild chest pain but that all the pain is radiating from his right shoulder to his chest. Related Data Home Medications ?Medication ?Instructions ?Recorded ?Confirmed hydrochlorothiazide 12.5 mg tablet 12.5 mg PO DAILY 03/13/23 03/16/23 lisinopril 20 mg tablet 40 mg PO DAILY 03/13/23 03/16/23 metformin 500 mg tablet 500 mg PO BID 03/13/23 03/16/23 metoprolol tartrate 75 mg tablet 75 mg PO BID 10/15/23 10/15/23 Previous Rx's ?Medication ?Instructions ?Recorded prednisone 20 mg tablet 40 mg (2 x 20 mg) PO DAILY #10 tabs 10/15/23 Allergies Allergy/AdvReac Type Severity Reaction Status Date / Time No Known Drug Allergies Allergy Verified 03/16/23 07:11 Review of Systems Status of ROS: Reports: 10 or more systems reviewed and unremarkable except as noted in History and below [facility] Medical History Dyslipidemia ?E78.5 - Hyperlipidemia, unspecified (ICD-10) ASCVD (arteriosclerotic cardiovascular disease) ?I25.10 - Atherosclerotic heart disease of [place] coronary artery without angina pectoris (ICD-10) Adenomatous colon polyp ?D12.6 - Benign neoplasm of colon, unspecified (ICD-10) Hypertension ?I10 - Essential (primary) hypertension (ICD-10) Type 2 diabetes mellitus ?E11.9 - Type 2 diabetes mellitus without complications (ICD-10) WARD (dyspnea on exertion) ?R06.09 - Other forms of dyspnea (ICD-10) Stage 3a chronic kidney disease ?N18.31 - Chronic kidney disease, stage 3a (ICD-10) Chronic bronchitis ?J42 - Unspecified chronic bronchitis (ICD-10) Depression ?F32.A - Depression, unspecified (ICD-10) History of coronary angiogram ?Z98.890 - Other specified postprocedural states (ICD-10) Surgical History S/P insertion of non-drug eluting coronary artery stent ?Z95.5 - Presence of coronary angioplasty implant and graft (ICD-10) History of esophagogastroduodenoscopy (EGD) ?Z98.890 - Other specified postprocedural states (ICD-10) History of colonoscopy ?Z98.890 - Other specified postprocedural states (ICD-10) History of coronary artery bypass graft ?Z95.1 - Presence of aortocoronary bypass graft (ICD-10) History of angioplasty ?Z98.62 - Peripheral vascular angioplasty status (ICD-10) Social History Smoking Status: Never smoker Second hand tobacco smoke exposure: No How often do you have a drink containing alcohol: never AUDIT-C Alcohol total score: 0 Non-prescribed substance use: denies use service: No Exam Narrative: Exam Narrative: Const: Well-nourished, Well-developed, in mild distress Eyes: PERRL, no conjunctival injection, and symmetrical lids HENT: Atraumatic external nose and ears. Moist mucous membranes. Neck: Symmetric, trachea midline, No thyromegaly. CVS: RRR, No murmurs or gallops. Peripheral pulses 2+ and equal in all extremities RESP: Unlabored respiratory effort. Clear to auscultation bilaterally. GI: Nontender/Nondistended, No rebound or guarding. MSK:Extremities w/o deformity, Normal Active ROM Skin: Warm, Dry. No rashes or lesions. Neuro: Normal Muscle tone, Cranial nerves 2-12 grossly intact, normal [id number], normal [id number], normal gait, normal strength 5/5 upper lower extremities bilaterally, decreased sensation noted to right upper extremity throughout the dermatomes worse and C6 dermatome. Rest of extremities have normal sensation, normal rapid alternating movements. Psych: Awake, Alert, & Oriented x3. Appropriate mood and affect. Const: Vital Signs, click to edit/add: Vital Signs - 24 hr 10/15/23 10:24 Temperature 97.9 F Pulse Rate [Right Pulse Oximeter] 58 L Respiratory Rate 18 Blood Pressure [Ri ght Upper Arm] 187/86 H Pulse Oximetry 98 Oxygen Delivery Me thod Room Air Course Vital Signs Vital signs: Initial Vital Signs Temperature 97.9 F 10/15/23 10:24 Temperature Source Temporal Artery Scan 10/15/23 10:24 Pulse Rate 58 L 10/15/23 10:24 Pulse Rhythm Regular 10/15/23 10:24 Pulse Strength 3+ Normal 10/15/23 10:24 Respiratory Rate 18 10/15/23 10:24 Blood Pressure 187/86 H 10/15/23 10:24 Blood Pressure Mean 119 H 10/15/23 10:24 Blood Pressure Position Sitting 10/15/23 10:24 Pulse Oximetry 98 10/15/23 10:24 Oxygen Delivery Method Room Air 10/15/23 10:24 Vital Signs Temperature 97.9 F 10/15/23 10:24 Pulse Rate 58 L 10/15/23 10:24 Respiratory Rate 18 10/15/23 10:24 Blood Pressure 187/86 H 10/15/23 10:24 Pulse Oximetry 98 10/15/23 10:24 Oxygen Delivery Method Room Air 10/15/23 10:24 Temperature 97.9 F 10/15/23 10:24 Pulse Rate 58 L 10/15/23 10:24 Respiratory Rate 18 10/15/23 10:24 Blood Pressure 187/86 H 10/15/23 10:24 Pulse Oximetry 98 10/15/23 10:24 Oxygen Delivery Method Room Air 10/15/23 10:24 Medical Decision Making [facility] Narrative Medical decision making narrative: Patient is a 72-year-old male presenting for right arm numbness. This may gone for 5 days. Due to the time frame code stroke was not called. Speaking to him though this does not seem like it is stroke related and more likely related to peripheral neuropathy. He is having some shoulder issues. Will do a head CT though to look for any abnormalities. He is also having chest pain but this all radiates from the shoulder and more likely to be from the shoulder and not related to any cardiac issues. Will do an EKG and troponin though. Will also do CBC, magnesium and BMP. Lab work returned showing no acute abnormalities. Creatinine appears to be improved compared to his baseline. CT scan of the head reviewed by myself and radiologist shows no acute abnormalities. I do not believe CTA or MRI is necessary as this is likely a peripheral neuropathy and he can follow-up outpatient. Will start him on steroids other see if that helps with the symptoms. He is agreeable to this plan. He does have follow-up already scheduled in 5 days. Will keep this. EKG also shows no concerning findings. Do not think repeat troponin is necessary as symptoms have been going on for several days and again pain is radiating from the shoulder to the chest and not vice versa. Lab Data Labs: Lab Results 10/15/23 Range/Units 12:05 WBC 5.82 (4.50-11.00) K/uL RBC 4.68 (4.30-5.90) m/uL Hgb 14.2 (13.5-17.5) gm/dL Hct 42.3 (37.0-53.0) % MCV 90 (80-100) fL MCH 30 (26-34) pg MCHC 34 (32-36) gm/dL RDW Coeff of [place] 14.2 (11.5-15.5) % Plt Count 211 (140-440) K/uL Neut % (Auto) 71.9 (42.0-72.0) % Lymph % (Auto) 15.8 L (20-44) % [place] % (Auto) 7.2 (0.0-11.0) % Eos % (Auto) 4.6 (0.0-7.0) % Baso % (Auto) 0.3 (0.0-3.0) % Neut # (Auto) 4.18 (1.7-7.0) K/uL Lymph # (Auto) 0.90 (0.90-2.90) K/uL [place] # (Auto) 0.40 (0.00-0.90) K/UL Eos # (Auto) 0.27 (0.00-0.50) K/uL Baso # (Auto) 0.02 (0.00-0.30) K/uL Abs Immat Gran (auto) 0.01 (0.00-0.30) K/uL Imm/Tot Granulo (auto) 0.2 % Sodium 139 (135-149) mmol/L Potassium 4.0 (3.6-5.1) mmol/L Chloride 105 (96-114) mmol/L Carbon Dioxide 28 (20-32) mmol/L Anion Gap 6 L (7-15) mEq/L BUN 19 (7-30) mg/dL Creatinine 1.6 H (0.5-1.5) mg/dL Estimated Creat Clear 39.78 Estimated GFR 45 ml/min Glucose 100 (60-115) mg/dL Calcium 9.4 (8.4-10.6) mg/dL Magnesium 2.0 (1.5-2.6) mg/dL POC Troponin I 0.01 (0.01-0.04) ng/ml Imaging Data CT scan - head: Attestation: I have reviewed the pertinent imaging results. Radiologist's impression: No acute intracranial process per unenhanced head CT. Please note that all CT scans at this facility use dose modulation, iterative reconstruction, and/or weight-based dosing when appropriate to reduce radiation dose to as low as reasonably achievable. Dictated by Jimbo Aguillon MD @ 10/15/2023 12:03:41 PM ECG Data Attestation: I personally reviewed and interpreted this ECG as follows: Prior ECG tracings: available for review Interpretation: Sinus bradycardia with first-degree AV block, normal QT interval, normal axis, no ST or T-wave abnormalities. There is a right bundle-branch block. Appears similar previous EKG on file Discharge Plan Discharge Clinical Impression: Radiculopathy affecting upper extremity Patient Disposition: Home, Self-Care Condition: Stable Instructions: Paresthesia (ED) Additional Instructions: Keep your appointment scheduled for 10/19 to primary care provider and mention yo ur right arm numbness. Use the steroids as directed. Return to emergency department if he does start developing any other neurological symptoms. Prescriptions: New prednisone 20 mg tablet 40 mg PO DAILY Qty: 10 0RF No Action metformin 500 mg tablet 500 mg PO BID lisinopril 20 mg tablet 40 mg PO DAILY hydrochlorothiazide 12.5 mg tablet 12.5 mg PO DAILY metoprolol tartrate 75 mg tablet 75 mg PO BID Follow Up/Referrals: Leigh Siegel DO [Primary Care Provider] - Stand Alone Forms: [employer] Info Instructions
[2023-10-15 12:12] LABS: Basophils Absolute Auto 0.02 K/uL (0.00-0.30); Basophils Percent Auto 0.3 % (0.0-3.0); Eosinophils Absolute Auto 0.27 K/uL (0.00-0.50); Eosinophils Percent Auto 4.6 % (0.0-7.0); Hematocrit 42.3 % (37.0-53.0); Hemoglobin* 14.2 gm/dL (13.5-17.5); Immature Granulocytes Abs Auto 0.01 K/uL (0.00-0.30); Immature Granulocytes Pct Auto 0.2 %; Lymphocytes Percent Auto 15.8 % (20-44); Mean Corpuscular HGB Conc 34 gm/dL (32-36); Mean Corpuscular Hemoglobin 30 pg (26-34); Mean Corpuscular Volume 90 fL (80-100); Monocytes Percent Auto 7.2 % (0.0-11.0); Neutrophils Absolute Auto 4.18 K/uL (1.7-7.0); Neutrophils Percent Auto 71.9 % (42.0-72.0); Platelet Count* 211 K/uL (140-440); RDW Coefficient of Variation % 14.2 % (11.5-15.5); Red Blood Count 4.68 m/uL (4.30-5.90); White Blood Count* 5.82 K/uL (4.50-11.00)
[2023-10-15 12:22] LABS: Slide Review Reflex No
[2023-10-15 12:34] LABS: Chloride* 105 mmol/L (96-114); Sodium* 139 mmol/L (135-149)
[2023-10-15 12:37] LABS: Anion Gap 6 mEq/L (7-15); Blood Urea Nitrogen* 19 mg/dL (7-30); Calcium* 9.4 mg/dL (8.4-10.6); Carbon Dioxide* 28 mmol/L (20-32); Creatinine* 1.6 mg/dL (0.5-1.5); Est. Creatinine Clearance* 39.78; Estimated Glomerular Filt Rate 45 ml/min; Glucose* 100 mg/dL (60-115)
[2023-10-15 13:07] LABS: Troponin, Point-of-Care* 0.01 ng/ml (0.01-0.04)
== END 2023-10-15 13:32 | disposition home or self-care (01) ==
PROVIDERS: Emergency Provider Student in an Organized Health Care Education/Training Program; PCP Family Medicine
DX: M54.10 Radiculopathy, site unspecified (principal)
CPT/HCPCS: 36415; 70450; 80048; 83735; 84484; 85025; 93005; 99283; 99284; 99285

== ENCOUNTER 2023-10-30 06:05 | Day surgery (SDC) | payer MEDICARE, SELFPAY ==
[2023-10-30] VITALS (12 sets, daily range): BP systolic 145–169; BP diastolic 79–97; PULSE 58–72; RESP 16; TEMP 36.2–36.9; O2SAT 95–96; BMI 24.7
[2023-10-30] MEDS: SODIUM CHLORIDE 0.9 % (FLUSH) 10 ML SYRINGE IVF (06:57)
[2023-10-30] MEDS: LACTATED RINGERS 1000 ML 1,000 ML 100 ML IV (06:58)
--- NOTE | 2023-10-30 07:37 | W.PM.H&PU ---
History & Physical Update History & Physical Update H&P Reviewed and patient assessed: No changes noted
--- NOTE | 2023-10-30 07:37 | PM.GSPRC ---
Operative Note Date of procedure: 10/30/23 Pre-op diagnosis: Left inguinal hernia Post-op diagnosis: Left inguinal pantaloon hernia Type of Procedure: Laparoscopic left inguinal hernia repair Indications: The patient is a 72-year-old male who developed a left inguinal bulge. This occurred when he was getting out of a very low chair. He was found to have a hernia. He has been having discomfort with certain activities and desires repair. Procedure Description: After discussing the risks and benefits of the procedure, the patient signed informed consent.? The operative site was marked and the patient was brought to the operating room and placed on the operating table in supine position.? Care was taken to pad the patient's pressure points.?? The patient was then intubated by anesthesia.?? The operative site was then prepped and draped in the usual sterile fashion.? A time-out was then performed. A curvilinear incision was made below the umbilicus. Dissection was carried down to subcutaneous tissue until the anterior rectus fascia was encountered. This was incised off the midline on the left. The rectus muscle fibers were then retracted exposing the posterior fascia. A port with a dissecting balloon was then introduced into the pre-preperitoneal space. This was inflated under direct vision. The balloon was deflated, removed, and a 10 mm working port was placed. The space was insufflated and a 10 mm 30-degree scope was then advanced into the space. Two 5 mm ports were placed in the midline under direct vision. Dissection began on the left side. There was a direct inguinal hernia noted. This was reduced. Rory's ligament and the pubic bone were exposed medially. Following this, dissection was carried out laterally. A small indirect defect was noted. The sac and a small cord lipoma were dissected free from the cord structures using a combination of sharp and blunt dissection. Once the sac was completely reduced, a piece of Bard 3DMax mesh for the appropriate side was placed into the abdomen. This was positioned with the marker pointed medially and overlapping the midline. A Tacker was used to attach the mesh medially at Rory's ligament and in the anteromedial location above the direct defect. Once this was completed the sac was placed on top of the mesh and the preperitoneal space desufflated under direct vision to ensure the mesh laid flat. 10 mL of 0.5% Marcaine were instilled into the preperitoneal space through a port. The ports were removed. The fascia from the infraumbilical port was closed with 0 Vicryl. The skin incisions were closed with absorbable subcuticular suture. Sterile dressings were then applied. The scrotum was examined to ensure that both testicles were down. Instrument sponge and needle counts were correct at the end of the case. ? The patient was then woken and transported to the recovery area in stable condition. ? The patient tolerated the procedure well. Findings: Pantaloon left inguinal hernia Anesthesia: CINTHIAA Surgeon: Alejandra Solis MD Estimated blood loss (mL): 5 Condition: stable Disposition: PACU
[2023-10-30] MEDS: CEFAZOLIN 1 GM inj IVP (07:45)
[2023-10-30] MEDS: BUPIVACAINE 0.25% 30 ML INJECTION (08:30)
[2023-10-30] MEDS: fentaNYL 100 MCG/2 ML inj 50 MCG IVP (09:04)
--- NOTE | 2023-10-30 09:04 | W.ANESCHARGE ---
Anesthesia Charges Start Date/Time Anesthesia Start Date: 10/30/23 Anesthesia Start Time: 07:30 Stop Date/Time Anesthesia Stop Date: 10/30/23 Anesthesia Stop Time: 08:53 Summary Extremes of Age - Over 70 or under 1: [employer]
[2023-10-30] MEDS: HYDROCODONE-ACETAMIN 5-325 MG 1 TAB PO (09:52)
--- NOTE | 2023-10-30 11:49 | W.ANESCHARGE ---
Anesthesia Charges Start Date/Time Anesthesia Start Date: 10/30/23 Anesthesia Start Time: 07:30 Stop Date/Time Anesthesia Stop Date: 10/30/23 Anesthesia Stop Time: 08:53 Summary Extremes of Age - Over 70 or under 1: [facility]
== END 2023-10-30 10:52 | disposition home or self-care (01) ==
PROVIDERS: PCP Family Medicine; Visit Provider Surgery
PROC: (CPT 49650; principal; 2023-10-30 07:30)
DX: K40.90 Unilateral inguinal hernia, without obstruction or gangrene, not specified as recurrent (principal)
CPT/HCPCS: 49650; 00860; 99100; A9270; C1781; J0330; J0665; J0690; J1100; J2250; J2371; J2405; J2704; J3010; J3490; J7120

== ENCOUNTER 2023-12-30 09:51 | Emergency (ER) | payer MEDICARE, SELFPAY ==
[2023-12-30 10:00] VITALS: BP 207/107; PULSE 64; RESP 18; TEMP 36.6; O2SAT 98; BMI 25.1
--- NOTE | 2023-12-30 10:23 | ED_ITS ---
HPI - General Adult General Chief complaint: Extremity Pain/Injury, Upper Stated complaint: Right shoulder pain Time Seen by Provider: 12/30/23 10:04 History of Present Illness HPI narrative: Patient is a 73-year-old gentleman comes in with radiculopathy down the right arm. He has longstanding radiculopathy. He has had MRIs and shoulder injections which have helped to limited extent. He has not seen a neurosurgeon. Patient states the pain starts in the right scapular region radiates down his right arm to his right elbow. This is in no way associated with chest pain shortness a breath orthopnea no PND. This is a problem is been often on for many months. He does have remarkably elevated blood pressure but is quite anxious today. He has no left-sided pain no other related cardiac type symptoms. He does feel numbness and tingling in the arm that extends to the 4th and 5th digits of his right hand. Related Data Home Medications ?Medication ?Instructions ?Recorded ?Confirmed lisinopril 20 mg tablet 40 mg PO DAILY 03/13/23 12/30/23 metformin 500 mg tablet 500 mg PO BID 03/13/23 12/30/23 metoprolol tartrate 75 mg tablet 75 mg PO BID 10/15/23 12/30/23 glipizide 2.5 mg tablet, extended 2.5 mg PO DAILY 10/30/23 12/30/23 release 24 hr rosuvastatin 40 mg tablet (Crestor) 40 mg PO DAILY 10/30/23 12/30/23 Allergies Allergy/AdvReac Type Severity Reaction Status Date / Time amlodipine Allergy edema Verified 12/30/23 10:05 isosorbide (From Imdur) Allergy intolerance Verified 12/30/23 10:05 tamsulosin (From Flomax) Allergy Dizziness Verified 12/30/23 10:05 Review of Systems Status of ROS: Reports: 10 or more systems reviewed and unremarkable except as noted in History and below [facility] Medical History Dyslipidemia ?E78.5 - Hyperlipidemia, unspecified (ICD-10) ASCVD (arteriosclerotic cardiovascular disease) ?I25.10 - Atherosclerotic heart disease of [place] coronary artery without angina pectoris (ICD-10) Adenomatous colon polyp ?D12.6 - Benign neoplasm of colon, unspecified (ICD-10) Hypertension ?I10 - Essential (primary) hypertension (ICD-10) Type 2 diabetes mellitus ?E11.9 - Type 2 diabetes mellitus without complications (ICD-10) WARD (dyspnea on exertion) ?R06.09 - Other forms of dyspnea (ICD-10) Stage 3a chronic kidney disease ?N18.31 - Chronic kidney disease, stage 3a (ICD-10) Chronic bronchitis ?J42 - Unspecified chronic bronchitis (ICD-10) Depression ?F32.A - Depression, unspecified (ICD-10) History of coronary angiogram ?Z98.890 - Other specified postprocedural states (ICD-10) Surgical History S/P insertion of non-drug eluting coronary artery stent ?Z95.5 - Presence of coronary angioplasty implant and graft (ICD-10) History of esophagogastroduodenoscopy (EGD) ?Z98.890 - Other specified postprocedural states (ICD-10) History of colonoscopy ?Z98.890 - Other specified postprocedural states (ICD-10) History of coronary artery bypass graft ?Z95.1 - Presence of aortocoronary bypass graft (ICD-10) History of angioplasty ?Z98.62 - Peripheral vascular angioplasty status (ICD-10) Social History Smoking Status: Never smoker Second hand tobacco smoke exposure: No How often do you have a drink containing alcohol: never AUDIT-C Alcohol total score: 0 Non-prescribed substance use: denies use Caffeine: Yes service: No Exam Narrative: Exam Narrative: EXAM GENERAL: Patient appears comfortable and well. EYES: No scleral icterus. LYMPH: No supraclavicular or cervical lymphadenopathy. SKIN: Visible skin seen during exam normal or with benign process only. EXT: No dependent lower extremity pedal edema. HEART: Regular rate and rhythm with no murmurs, rubs, or gallops. LUNGS: Clear to auscultation bilaterally with no crackles or wheezes. ABD: Soft, non tender, non distended. PSYCH: Good eye contact, speech is not pressured. Neurologic cranial nerves 2-12 grossly intact no focal defects. Const: Vital Signs, click to edit/add: Vital Signs - 24 hr 12/30/23 10:00 Temperature 97.8 F Pulse Rate [Right Pulse Oximeter] 64 Respiratory Rate 18 Blood Pressure [Ri ght Upper Arm] 207/107 H Pulse Oximetry 98 Oxygen Delivery Me thod Room Air Course Course ED Course: Patient seen and examined. Vital Signs Vital signs: Initial Vital Signs Temperature 97.8 F 12/30/23 10:00 Temperature Source Temporal Artery Scan 12/30/23 10:00 Pulse Rate 64 12/30/23 10:00 Pulse Rhythm Regular 12/30/23 10:00 Respiratory Rate 18 12/30/23 10:00 Blood Pressure 207/107 H 12/30/23 10:00 Blood Pressure Mean 140 H 12/30/23 10:00 Blood Pressure Position Sitting 12/30/23 10:00 Pulse Oximetry 98 12/30/23 10:00 Oxygen Delivery Method Room Air 12/30/23 10:00 Vital Signs Temperature 97.8 F 12/30/23 10:00 Pulse Rate 64 12/30/23 10:00 Respiratory Rate 18 12/30/23 10:00 Blood Pressure 207/107 H 12/30/23 10:00 Pulse Oximetry 98 12/30/23 10:00 Oxygen Delivery Method Room Air 12/30/23 10:00 Temperature 97.8 F 12/30/23 10:00 Pulse Rate 64 12/30/23 10:00 Respiratory Rate 18 12/30/23 10:00 Blood Pressure 207/107 H 12/30/23 10:00 Pulse Oximetry 98 12/30/23 10:00 Oxygen Delivery Method Room Air 12/30/23 10:00 Medical Decision Making [facility] Narrative Medical decision making narrative: Patient is a 73-year-old gentleman presents with radiculopathy down the right arm. I did consider cardiac etiologies by findings be very unlikely given his history. Patient has done well with cortical steroids in the past and I did repeat a course of prednisone for him. I do note that his type 2 diabetes but h as tolerated prednisone in the past. Patient will follow-up with his primary physician for further recommendations likely referral to neuro surgery. Differential diagnosis includes but not limited to shoulder osteoarthritis cervical nerve impingement peripheral nerve impingement unstable angina. Discharge Plan Discharge Clinical Impression: Cervical radiculopathy Patient Disposition: Home, Self-Care Condition: Stable Instructions: Cervical Radiculopathy (ED) Additional Instructions: Prednisone as directed Tylenol as previous Follow-up with your doctor to consider referral to Neurology/neuro surgery. Activity Level: No Restrictions Discharge Diet: Regular Prescriptions: No Action metformin 500 mg tablet 500 mg PO BID lisinopril 20 mg tablet 40 mg PO DAILY glipizide 2.5 mg tablet extended release 24hr 2.5 mg PO DAILY rosuvastatin [Crestor] 40 mg tablet 40 mg PO DAILY metoprolol tartrate 75 mg tablet 75 mg PO BID Follow Up/Referrals: Leigh Siegel DO [Primary Care Provider] - Stand Alone Forms: [employer] Info Instructions
== END 2023-12-30 10:36 | disposition home or self-care (01) ==
LOC: ED 10:35
PROVIDERS: Emergency Provider Internal Medicine; PCP Family Medicine
DX: M54.12 Radiculopathy, cervical region (principal)
CPT/HCPCS: 99283

== ENCOUNTER 2024-01-09 04:26 | Day surgery (SDC) | payer MEDICARE, SELFPAY ==
[2024-01-09] VITALS (37 sets, daily range): BP systolic 149–198; BP diastolic 72–109; PULSE 69–91; RESP 13–18; TEMP 36.5–37.4; O2SAT 89–97; BMI 25.1; BMI 25.2
--- NOTE | 2024-01-09 04:57 | ED.GENADULT ---
HPI - General Adult General Chief complaint: Rib Pain Stated complaint: Right side/ribs hurt Time Seen by Provider: 01/09/24 04:42 Source: patient Mode of arrival: ambulatory Limitations: no limitations History of Present Illness HPI narrative: 73-year-old male presents to the emergency department for evaluation of what he describes as ?right rib pain. This is actually right upper quadrant abdominal pain. It has been present now for 3-4 days. Reports normal appetite and intake. Normal elimination. No fevers. No trauma or injury. No history of DVT or PE. No shortness of breath. Pain is worse with movement but not with deep breath. No chest pain. He has a history of coronary artery disease but denies any exertional symptoms. No prior history of similar symptoms. His only prior abdominal surgery is an inguinal hernia repair this past October, otherwise no prior abdominal surgeries or prior gallbladder disease. No personal history of DVT or PE. Reports that he does not use any anticoagulants even with his history of coronary artery disease. He has also had an aortic aneurysm repair. When I ask if this was thoracic or abdominal as abdominal was more common, he thinks it was thoracic. I would find that kind of hard to believe he is a former smoker, no longer smoking. Had previously tried some Tylenol to help with his pain but has not used anything today. No bloody stools, no vomiting. Pain worse with movement. Past medical history notable for coronary artery disease. Prior CABG with the aortic aneurysm repair but has also had stents 3 years ago in his coronary arteries. He also has diabetes, hypertension and hyperlipidemia. Home med seem accurate as listed though he was not able to easily recall these. When I went through the list he said he thinks so. He denies drug allergies to me but there are several intolerance is listed in his chart which are reviewed. Nonsmoker currently. ROS is notable for the abdominal symptoms as above only, otherwise denies times 12 systems. Related Data Home Medications ?Medication ?Instructions ?Recorded ?Confirmed lisinopril 20 mg tablet 40 mg PO DAILY 03/13/23 12/30/23 metformin 500 mg tablet 500 mg PO BID 03/13/23 12/30/23 metoprolol tartrate 75 mg tablet 75 mg PO BID 10/15/23 12/30/23 glipizide 2.5 mg tablet, extended 2.5 mg PO DAILY 10/30/23 12/30/23 release 24 hr rosuvastatin 40 mg tablet (Crestor) 40 mg PO DAILY 10/30/23 12/30/23 Allergies Allergy/AdvReac Type Severity Reaction Status Date / Time amlodipine Allergy edema Verified 12/30/23 10:05 isosorbide (From Imdur) Allergy intolerance Verified 12/30/23 10:05 tamsulosin (From Flomax) Allergy Dizziness Verified 12/30/23 10:05 [facility] Medical History (Updated 01/09/24 @ 08:07 by Isaura Rivera MD) Dyslipidemia ?E78.5 - Hyperlipidemia, unspecified (ICD-10) ASCVD (arteriosclerotic cardiovascular disease) ?I25.10 - Atherosclerotic heart disease of [place] coronary artery without angina pectoris (ICD-10) Adenomatous colon polyp ?D12.6 - Benign neoplasm of colon, unspecified (ICD-10) Hypertension ?I10 - Essential (primary) hypertension (ICD-10) Type 2 diabetes mellitus ?E11.9 - Type 2 diabetes mellitus without complications (ICD-10) WARD (dyspnea on exertion) ?R06.09 - Other forms of dyspnea (ICD-10) Stage 3a chronic kidney disease ?N18.31 - Chronic kidney disease, stage 3a (ICD-10) Chronic bronchitis ?J42 - Unspecified chronic bronchitis (ICD-10) Depression ?F32.A - Depression, unspecified (ICD-10) History of coronary angiogram ?Z98.890 - Other specified postprocedural states (ICD-10) Surgical History (Updated 01/09/24 @ 08:01 by Alejandra Solis MD) S/P left inguinal hernia repair ?Z98.890 - Other specified postprocedural states (ICD-10) ?Z87.19 - Personal history of other diseases of the digestive system (ICD-10) S/P insertion of non-drug eluting coronary artery stent ?Z95.5 - Presence of coronary angioplasty implant and graft (ICD-10) History of esophagogastroduodenoscopy (EGD) ?Z98.890 - Other specified postprocedural states (ICD-10) History of colonoscopy ?Z98.890 - Other specified postprocedural states (ICD-10) History of coronary artery bypass graft ?Z95.1 - Presence of aortocoronary bypass graft (ICD-10) History of angioplasty ?Z98.62 - Peripheral vascular angioplasty status (ICD-10) Social History Smoking Status: Never smoker Second hand tobacco smoke exposure: No How often do you have a drink containing alcohol: never AUDIT-C Alcohol total score: 0 Non-prescribed substance use: denies use Caffeine: Yes service: No Exam Const: Vital Signs, click to edit/add: Vital Signs - 24 hr 01/09/24 04:33 01/09/24 05:12 01/09/24 05:13 Temperature 97.8 F Pulse Rate 71 74 Pulse Rate [Pulse Oximeter] 77 Respiratory Rate 16 Blood Pressure 166/83 H Blood Pressure [Ri ght Upper Arm] 191/109 H Pulse Oximetry 97 96 95 Oxygen Delivery Me thod Room Air 01/09/24 05:15 01/09/24 05:30 01/09/24 05:31 Temperature Pulse Rate 71 69 70 Pulse Rate [Pulse Oximeter] Respiratory Rate 16 Blood Pressure 153/82 H Blood Pressure [Ri ght Upper Arm] Pulse Oximetry 96 96 95 Oxygen Delivery Me thod 01/09/24 05:54 01/09/24 06:00 01/09/24 06:01 Temperature Pulse Rate 76 74 74 Pulse Rate [Pulse Oximeter] Respiratory Rate Blood Pressure 167/89 H Blood Pressure [Ri ght Upper Arm] Pulse Oximetry 96 95 96 Oxygen Delivery Me thod 01/09/24 06:02 01/09/24 07:37 Temperature Pulse Rate 74 Pulse Rate [Pulse Oximeter] Respiratory Rate Blood Pressure 164/95 H Blood Pressure [Ri ght Upper Arm] Pulse Oximetry 95 Oxygen Delivery Me thod Documenting provider has reviewed patient's vital signs: yes Common normals: alert Other: Diaphoretic, mildly distressed due to pain but declines pain medication. Good insight, cooperative HENMT: Common normals: normocephalic Head and scalp: normocephalic Face and sinus: normal facial exam Mouth: oral and palatal mucosa normal Throat: posterior oropharynx normal Eye: Common normals: conjunctivae normal General eye: normal appearance of both eyes Conjunctiva: conjunctiva(e) normal Neck & C-Spine: Common normals: full ROM and no lymphadenopathy Chest: Common normals: inspection of chest normal and palpation of chest normal Resp: Common normals: normal respiratory effort and no use of accessory muscles Other: Faint bibasilar crackles. Normal respiratory effort. Cardio: Common normals: regular rate, regular rhythm, S1 normal heart sound, S2 normal heart sound and no murmurs Rate: regular rate Rhythm: regular rhythm Heart sounds: S1 normal and S2 normal GI: Common normals: Normal to inspection, nondistended, normoactive bowel sounds present and no hepatosplenomegaly Palpation: no hepatosplenomegaly Other: Guarding or right upper quadrant on exam with mild rebound tenderness. Positive Quach sign. No obvious mass. Bowel sounds normoactive throughout. Liver and spleen not enlarged : Common normals: no CVA tenderness Bladder/kidney exam: no CVA tenderness Back & Pelvis: Common normals: no CVA tenderness and thoracic and lumbar spine normal to inspection Extremity: Common normals: normal to inspection and normal capillary refill Other: Trace bilateral pedal edema Neuro: Common normals: moves all extremities and no focal motor deficits Sensorium/orientation: alert Speech: speech normal Psych: Common normals: thought process normal, cooperative and speech normal Speech: normal speech Thought process: normal thought process Skin: Common normals: no rashes or lesions noted General skin exam: no rashes or lesions noted Course Course ED Course: 73 old male with history of coronary artery disease presenting with right upper quadrant abdominal pain suspicious for cholecystitis. Chart reflects a history of chronic kidney disease. I will call in ultrasound, this will delay getting results. Typical intra-abdominal and cardiac labs. Would recommend EKG. Will need chest x-ray if surgery required. He declines pain medication for now but if he changes his mind, will order as appropriate. Reevaluation(s) Time of Reevaluation #1: 06:14 Reevaluation #1: Elected to do CT since patient had eaten less than [address] is equivocal for cholecystitis per Radiology, I thought that the fluid hallow seem convincing. Will await ultrasound, will have to delay due to patient eating cereal. Labs are reassuring. Continues to decline pain medication. Time of Reevaluation #2: 08:06 Reevaluation #2: General surgery team is also recommending surgery. Uncertain on time line. Will admit to same-day surgery. Hospitalist consult id, except care. I reviewed the chest x-ray and EKG. He has already taken his metoprolol this morning. He is medically cleared for surgery at this time with no additional perioperative recommendations. Vital Signs Vital signs: Initial Vital Signs Temperature 97.8 F 01/09/24 04:33 Temperature Source Temporal Artery Scan 01/09/24 04:33 Pulse Rate 77 01/09/24 04:33 Respiratory Rate 16 01/09/24 04:33 Blood Pressure 191/109 H 01/09/24 04:33 Blood Pressure Mean 136 H 01/09/24 04:33 Blood Pressure Position Sitting 01/09/24 04:33 Pulse Oximetry 97 01/09/24 04:33 Oxygen Delivery Method Room Air 01/09/24 04:33 Vital Signs Temperature 97.8 F 01/09/24 04:33 Pulse Rate 77 01/09/24 04:33 Respiratory Rate 16 01/09/24 04:33 Blood Pressure 191/109 H 01/09/24 04:33 Pulse Oximetry 97 01/09/24 04:33 Oxygen Delivery Method Room Air 01/09/24 04:33 Temperature 97.8 F 01/09/24 04:33 Pulse Rate 74 01/09/24 06:02 Respiratory Rate 16 01/09/24 05:31 Blood Pressure 164/95 H 01/09/24 07:37 Pulse Oximetry 95 01/09/24 06:02 Oxygen Delivery Method Room Air 01/09/24 04:33 Medications Administered Medications: Discontinued Medications Generic Name Dose Route Start Last Admin Trade Name Freq PRN Reason Stop Dose Admin Hydromorphone HCl 0.25 mg 01/09/24 07:26 01/09/24 07:33 Hydromorphone 0.5 Mg/0.5 Ml Inj IVP 01/09/24 07:27 0.25 mg ONCE ONE Administration Ertapenem 1 gm/ Sodium 100 mls @ 200 mls/hr 01/09/24 07:47 01/09/24 07:59 Chloride IVPB 01/09/24 07:48 200 mls/hr ONCE ONE Administration Medical Decision Making Lab Data Lab results reviewed: Yes I reviewed the patient's lab results Lab results narrative: No significant leukocytosis but there is a slight left shift. Creatinine 1.6 which is stable for patient. CRP elevated, glucose elevated. Troponins normal. Labs: Lab Results 01/09/24 Range/Units 05:02 WBC 10.70 (4.50-11.00) K/uL RBC 4.66 (4.30-5.90) m/uL Hgb 14.1 (13.5-17.5) gm/dL Hct 40.6 (37.0-53.0) % MCV 87 (80-100) fL MCH 30 (26-34) pg MCHC 35 (32-36) gm/dL RDW Coeff of [place] 13.7 (11.5-15.5) % Plt Count 191 (140-440) K/uL Neut % (Auto) 80.1 H (42.0-72.0) % Lymph % (Auto) 8.4 L (20-44) % [place] % (Auto) 9.1 (0.0-11.0) % Eos % (Auto) 1.9 (0.0-7.0) % Baso % (Auto) 0.1 (0.0-3.0) % Neut # (Auto) 8.60 H (1.7-7.0) K/uL Lymph # (Auto) 0.90 (0.90-2.90) K/uL [place] # (Auto) 1.00 H (0.00-0.90) K/UL Eos # (Auto) 0.20 (0.00-0.50) K/uL Baso # (Auto) 0.01 (0.00-0.30) K/uL Abs Immat Gran (auto) 0.04 (0.00-0.30) K/uL Imm/Tot Granulo (auto) 0.4 % Sodium 135 (135-149) mmol/L Potassium 3.5 L (3.6-5.1) mmol/L Chloride 104 (96-114) mmol/L Carbon Dioxide 24 (20-32) mmol/L Anion Gap 7 (7-15) mEq/L BUN 28 (7-30) mg/dL Creatinine 1.6 H (0.5-1.5) mg/dL Estimated Creat Clear 39.19 Estimated GFR 45 ml/min Glucose 277 H (60-115) mg/dL Lactate 1.9 (0.5-1.9) mmol/L Calcium 9.1 (8.4-10.6) mg/dL Total Bilirubin 0.8 (0.1-1.5) mg/dL AST 17 (12-35) U/L ALT 31 (4-50) U/L Alkaline Phosphatase 121 (40-150) U/L C-Reactive Protein 6.4 H (0.5-1.0) mg/dL Total Protein 6.1 (6.0-8.3) g/dL Albumin 3.6 (3.3-5.0) g/dL Lipase 92 (23-300) U/L POC Troponin I 0.00 L (0.01-0.04) ng/ml Imaging Data CT scan - abdomen: Attestation: I have reviewed the pertinent imaging results. My impression: Fluid line around superior aspects of gallbladder suspicious for cholecystitis, not noted per formal interpretation. Few small gallstones near gallbladder neck. Otherwise appropriate CT. Radiologist's impression: IMPRESSION: 1. Cholelithiasis. Equivocal appearance of the gallbladder. 2. Borderline splenomegaly. Please note that all CT scans at this facility use dose modulation, iterative reconstruction, and/or weight-based dosing when appropriate to reduce radiation dose to as low as reasonably achievable. Dictated by Komal Humphreys MD @ 01/09/2024 6:13:31 AM Chest x-ray: Attestation: I have reviewed the pertinent imaging results. My impression: Normal chest x-ray. No significant pleural effusion or consolidation. Radiologist's impression: IMPRESSION: No acute findings in the chest. No rib fracture seen. Dictated by Komal Humphreys MD @ 01/09/2024 7:14:06 AM US - abdomen: Attestation: I have reviewed the pertinent imaging results. My impression: Gallstones with borderline wall thickness of gallbladder Radiologist's impression: IMPRESSION: Cholelithiasis. Borderline appearance of the gallbladder with a negative sonographic Quach`s sign. No choledocholithiasis or biliary duct dilatation. Dictated by Komal Humphreys MD @ 01/09/2024 7:12:33 AM ECG Data Attestation: I personally reviewed and interpreted this ECG as follows: Prior ECG tracings: available for review Interpretation: Sinus rhythm with a rate of 72. Right bundle branch block. STD, T-waves are unchanged from 10/15/2023. No signs of acute ischemia. Stable EKG Discharge Plan Discharge Clinical Impression: Acute calculous cholecystitis Patient Disposition: XFER to OR Condition: Stable Follow Up/Referrals: Leigh Siegel DO [Staff Physician] -
[2024-01-09 05:09] LABS: Lactate* 1.9 mmol/L (0.5-1.9)
--- NOTE | 2024-01-09 05:09 | CRLHL7_ITS ---
For Patients: As a result of the Century Cures Act, medical imaging exams and procedure reports are released immediately into your electronic medical record. You may view this report before your referring provider. If you have questions, please contact your health care provider. INDICATION: Rib pain, positive Quach`s sign, cholelithiasis COMPARISON: CT 01/09/2024 TECHNIQUE: Foster-scale and color Doppler ultrasound of the gallbladder and bile duct FINDINGS: The gallbladder is distended. Gallbladder wall is echogenic and at the upper limits of normal in thickness, 3 millimeters. No pericholecystic fluid. Negative sonographic Quach sign. There are some shadowing stones at the gallbladder neck that measure 1.3 and 0.8 cm. Extrahepatic bile duct is normal and measures 3 millimeters. IMPRESSION: Cholelithiasis. Borderline appearance of the gallbladder with a negative sonographic Quach`s sign. No choledocholithiasis or biliary duct dilatation. Dictated by Komal Humphreys MD @ 01/09/2024 7:12:33 AM (Electronically Signed)
[2024-01-09 05:11] LABS: Basophils Absolute Auto 0.01 K/uL (0.00-0.30); Basophils Percent Auto 0.1 % (0.0-3.0); Eosinophils Percent Auto 1.9 % (0.0-7.0); Hematocrit 40.6 % (37.0-53.0); Hemoglobin* 14.1 gm/dL (13.5-17.5); Immature Granulocytes Abs Auto 0.04 K/uL (0.00-0.30); Immature Granulocytes Pct Auto 0.4 %; Lymphocytes Percent Auto 8.4 % (20-44); Mean Corpuscular HGB Conc 35 gm/dL (32-36); Mean Corpuscular Hemoglobin 30 pg (26-34); Mean Corpuscular Volume 87 fL (80-100); Monocytes Percent Auto 9.1 % (0.0-11.0); Neutrophils Percent Auto 80.1 % (42.0-72.0); Platelet Count* 191 K/uL (140-440); RDW Coefficient of Variation % 13.7 % (11.5-15.5); Red Blood Count 4.66 m/uL (4.30-5.90)
[2024-01-09 05:16] LABS: Slide Review Reflex No
[2024-01-09 05:25] LABS: Albumin* 3.6 g/dL (3.3-5.0); Chloride* 104 mmol/L (96-114)
[2024-01-09 05:26] LABS: Potassium* 3.5 mmol/L (3.6-5.1); Sodium* 135 mmol/L (135-149)
[2024-01-09 05:28] LABS: Bilirubin Total* 0.8 mg/dL (0.1-1.5); Creatinine* 1.6 mg/dL (0.5-1.5); Est. Creatinine Clearance* 39.19; Estimated Glomerular Filt Rate 45 ml/min
[2024-01-09 05:29] LABS: Alanine Aminotransferase* 31 U/L (4-50); Alkaline Phosphatase* 121 U/L (40-150); Anion Gap 7 mEq/L (7-15); Aspartate Amino Transferase* 17 U/L (12-35); Blood Urea Nitrogen* 28 mg/dL (7-30); Calcium* 9.1 mg/dL (8.4-10.6); Carbon Dioxide* 24 mmol/L (20-32); Glucose* 277 mg/dL (60-115); Lipase* 92 U/L (23-300); Total Protein* 6.1 g/dL (6.0-8.3)
[2024-01-09 05:32] LABS: C Reactive Protein* 6.4 mg/dL (0.5-1.0)
--- NOTE | 2024-01-09 05:33 | CRLHL7_ITS ---
For Patients: As a result of the Century Cures Act, medical imaging exams and procedure reports are released immediately into your electronic medical record. You may view this report before your referring provider. If you have questions, please contact your health care provider. INDICATION: Right upper quadrant pain. COMPARISON: None. TECHNIQUE: CT of the abdomen and pelvis with intravenous contrast. Multiplanar axial, coronal, and sagittal reformats were reconstructed. Contrast: 81 mL Isovue 370. FINDINGS: Lung bases: Linear atelectasis or scarring in both lung bases, mild. Liver: Normal. No mass. Gallbladder and bile ducts: Gallbladder is mildly distended. Small calcified gallstone at the gallbladder neck. Gallbladder wall is mildly hyperemic but there is no adjacent inflammatory stranding. No bile duct dilation. Pancreas: Normal. Spleen: Spleen length is upper limits of normal, 14 centimeters. No focal splenic lesions. Adrenal glands: Normal. Kidneys: Normal renal size and position. Normal renal parenchymal enhancement. There is a 0.8 centimeter right upper pole cyst. No calculi. Minimal bilateral pelviectasis. Neither ureter is significantly dilated. Urinary bladder: Normal. Pelvis: Prostatomegaly. Vessels: Atherosclerotic vascular calcifications. No aortic aneurysm. Mesenteric vessels are patent. Bowel: No dilated or inflamed bowel. Normal appendix. Moderate stool burden. Lymph nodes: No adenopathy. Peritoneum: No ascites. Abdominal wall: Tiny fat containing inguinal hernias. Bones: No fractures. No focal worrisome bone lesions. IMPRESSION: 1. Cholelithiasis. Equivocal appearance of the gallbladder. 2. Borderline splenomegaly. Please note that all CT scans at this facility use dose modulation, iterative reconstruction, and/or weight-based dosing when appropriate to reduce radiation dose to as low as reasonably achievable. Dictated by Komal Humphreys MD @ 01/09/2024 6:13:31 AM (Electronically Signed)
--- NOTE | 2024-01-09 06:48 | CRLHL7_ITS ---
For Patients: As a result of the Century Cures Act, medical imaging exams and procedure reports are released immediately into your electronic medical record. You may view this report before your referring provider. If you have questions, please contact your health care provider. INDICATION: Right rib pain COMPARISON: Chest radiograph 03/13/2023, same day CT of the abdomen and pelvis. TECHNIQUE: PA and lateral 2 view chest. FINDINGS: Lung volumes are good. Mild scarring or atelectasis in the left lung base is similar to prior. No pulmonary edema. No pleural effusion. No pneumothorax. No pneumomediastinum. Unchanged cardiomediastinal silhouette. Atherosclerotic vascular calcifications. Bones: Median sternotomy wires. No acute findings or rib fracture seen. IMPRESSION: No acute findings in the chest. No rib fracture seen. Dictated by Komal Humphreys MD @ 01/09/2024 7:14:06 AM (Electronically Signed)
[2024-01-09] MEDS: HYDROmorphone 0.5 mg/0.5 ml inj 0.25 MG IVP (07:33)
--- NOTE | 2024-01-09 07:50 | P.GSCN_ITS ---
History of Present Illness Consult details Date Seen: 01/09/24 Consult date: 01/09/24 Narrative: The patient is a 73-year-old male known to me for laparoscopic repair of left inguinal hernia done back in October. He states that on Monday morning he woke up with right upper quadrant pain. He states that the pain was much worse with movements. He thought that it would go away but it did not. He thought it was related to rib pain initially because he had discomfort with movement. He also has associated shoulder pain with this. He states that his symptoms are not worse with eating. He denies heartburn symptoms. He notes that his bowel movements have been more irregular and frequent but states that he has not had diarrhea. Denies nausea or vomiting or fevers. He states that 2 weeks ago he came to the emergency department with right shoulder pain. He is having similar symptoms again, however he did not have abdominal pain 2 weeks ago. He was given 5 days of an anti-inflammatory medication which resolved his issues at the time. [facility] Medical History (Updated 01/09/24 @ 08:01 by Alejandra Solis MD) Dyslipidemia ?E78.5 - Hyperlipidemia, unspecified (ICD-10) ASCVD (arteriosclerotic cardiovascular disease) ?I25.10 - Atherosclerotic heart disease of [place] coronary artery without angina pectoris (ICD-10) Adenomatous colon polyp ?D12.6 - Benign neoplasm of colon, unspecified (ICD-10) Hypertension ?I10 - Essential (primary) hypertension (ICD-10) Type 2 diabetes mellitus ?E11.9 - Type 2 diabetes mellitus without complications (ICD-10) WARD (dyspnea on exertion) ?R06.09 - Other forms of dyspnea (ICD-10) Stage 3a chronic kidney disease ?N18.31 - Chronic kidney disease, stage 3a (ICD-10) Chronic bronchitis ?J42 - Unspecified chronic bronchitis (ICD-10) Depression ?F32.A - Depression, unspecified (ICD-10) History of coronary angiogram ?Z98.890 - Other specified postprocedural states (ICD-10) Surgical History (Updated 01/09/24 @ 08:01 by Alejandra Solis MD) S/P left inguinal hernia repair ?Z98.890 - Other specified postprocedural states (ICD-10) ?Z87.19 - Personal history of other diseases of the digestive system (ICD-10) S/P insertion of non-drug eluting coronary artery stent ?Z95.5 - Presence of coronary angioplasty implant and graft (ICD-10) History of esophagogastroduodenoscopy (EGD) ?Z98.890 - Other specified postprocedural states (ICD-10) History of colonoscopy ?Z98.890 - Other specified postprocedural states (ICD-10) History of coronary artery bypass graft ?Z95.1 - Presence of aortocoronary bypass graft (ICD-10) History of angioplasty ?Z98.62 - Peripheral vascular angioplasty status (ICD-10) Social History Smoking Status: Never smoker Second hand tobacco smoke exposure: No How often do you have a drink containing alcohol: never AUDIT-C Alcohol total score: 0 Non-prescribed substance use: denies use Caffeine: Yes service: No Meds Home Medications and Allergies Home Medications ?Medication ?Instructions ?Recorded ?Confirmed ?Type lisinopril 20 mg tablet 40 mg PO DAILY 03/13/23 12/30/23 History metformin 500 mg tablet 500 mg PO BID 03/13/23 12/30/23 History metoprolol tartrate 75 mg tablet 75 mg PO BID 10/15/23 12/30/23 History glipizide 2.5 mg tablet, extended 2.5 mg PO DAILY 10/30/23 12/30/23 History release 24 hr rosuvastatin 40 mg tablet (Crestor) 40 mg PO DAILY 10/30/23 12/30/23 History Allergies Allergy/AdvReac Type Severity Reaction Status Date / Time amlodipine Allergy edema Verified 12/30/23 10:05 isosorbide (From Imdur) Allergy intolerance Verified 12/30/23 10:05 tamsulosin (From Flomax) Allergy Dizziness Verified 12/30/23 10:05 Exam Narrative: Exam Narrative: General appearance: Alert, cooperative, and in no distress Eyes: PERRLA, eye lids clear, and sclera white HENT Head: Normocephalic Ears: External ears normal Pulmonary: Breathing nonlabored on room air Cardiovascular Heart: Regular rate Extremities: warm and well perfused Gastrointestinal Abdominal: Lower abdominal scars noted from prior hernia repair. He is tender in the right upper quadrant and right flank with guarding and mildly positive Quach sign. He has no tenderness over his ribs in this area. He has no tenderness in other areas of his abdomen. Musculoskeletal: Extremities: Upper: Both upper extremities have normal joint range of motion and intact strength. Lower: Both lower extremities have normal joint range of motion and intact strength. Skin: Normal skin color, texture, and turgor. Neurologic: No focal deficits Psychiatric: Alert, oriented, cooperative, normal affect. Const: Vital Signs, click to edit/add: Vital Signs - 24 hr 01/09/24 04:33 01/09/24 05:12 01/09/24 05:13 Temperature 97.8 F Pulse Rate 71 74 Pulse Rate [Pulse Oximeter] 77 Respiratory Rate 16 Blood Pressure 166/83 H Blood Pressure [Ri ght Upper Arm] 191/109 H Pulse Oximetry 97 96 95 Oxygen Delivery Me thod Room Air 01/09/24 05:15 01/09/24 05:30 01/09/24 05:31 Temperature Pulse Rate 71 69 70 Pulse Rate [Pulse Oximeter] Respiratory Rate 16 Blood Pressure 153/82 H Blood Pressure [Ri ght Upper Arm] Pulse Oximetry 96 96 95 Oxygen Delivery Me thod 01/09/24 05:54 01/09/24 06:00 01/09/24 06:01 Temperature Pulse Rate 76 74 74 Pulse Rate [Pulse Oximeter] Respiratory Rate Blood Pressure 167/89 H Blood Pressure [Ri ght Upper Arm] Pulse Oximetry 96 95 96 Oxygen Delivery Me thod 01/09/24 06:02 01/09/24 07:37 Temperature Pulse Rate 74 Pulse Rate [Pulse Oximeter] Respiratory Rate Blood Pressure 164/95 H Blood Pressure [Ri ght Upper Arm] Pulse Oximetry 95 Oxygen Delivery Me thod Results Labs Labs: Abnormal lab results 01/09/24 Range/Units 05:02 Neut % (Auto) 80.1 H (42.0-72.0) % Lymph % (Auto) 8.4 L (20-44) % Neut # (Auto) 8.60 H (1.7-7.0) K/uL [place] # (Auto) 1.00 H (0.00-0.90) K/UL Potassium 3.5 L (3.6-5.1) mmol/L Creatinine 1.6 H (0.5-1.5) mg/dL Glucose 277 H (60-115) mg/dL C-Reactive Protein 6.4 H (0.5-1.0) mg/dL POC Troponin I 0.00 L (0.01-0.04) ng/ml Diabetes panel 01/09/24 Range/Units 05:02 Sodium 135 (135-149) mmol/L Potassium 3.5 L (3.6-5.1) mmol/L Chloride 104 (96-114) mmol/L Carbon Dioxide 24 (20-32) mmol/L BUN 28 (7-30) mg/dL Creatinine 1.6 H (0.5-1.5) mg/dL Glucose 277 H (60-115) mg/dL Calcium 9.1 (8.4-10.6) mg/dL AST 17 (12-35) U/L ALT 31 (4-50) U/L Alkaline Phosphatase 121 (40-150) U/L Total Protein 6.1 (6.0-8.3) g/dL Albumin 3.6 (3.3-5.0) g/dL Calcium panel 01/09/24 Range/Units 05:02 Calcium 9.1 (8.4-10.6) mg/dL Albumin 3.6 (3.3-5.0) g/dL Pituitary panel 01/09/24 Range/Units 05:02 Sodium 135 (135-149) mmol/L Potassium 3.5 L (3.6-5.1) mmol/L Chloride 104 (96-114) mmol/L Carbon Dioxide 24 (20-32) mmol/L BUN 28 (7-30) mg/dL Creatinine 1.6 H (0.5-1.5) mg/dL Glucose 277 H (60-115) mg/dL Calcium 9.1 (8.4-10.6) mg/dL Adrenal panel 01/09/24 Range/Units 05:02 Sodium 135 (135-149) mmol/L Potassium 3.5 L (3.6-5.1) mmol/L Chloride 104 (96-114) mmol/L Carbon Dioxide 24 (20-32) mmol/L BUN 28 (7-30) mg/dL Creatinine 1.6 H (0.5-1.5) mg/dL Glucose 277 H (60-115) mg/dL Calcium 9.1 (8.4-10.6) mg/dL Total Bilirubin 0.8 (0.1-1.5) mg/dL AST 17 (12-35) U/L ALT 31 (4-50) U/L Alkaline Phosphatase 121 (40-150) U/L Total Protein 6.1 (6.0-8.3) g/dL Albumin 3.6 (3.3-5.0) g/dL All other labs normal. Imaging Additional studies: CT scan of the abdomen and pelvis done this morning: Pertinent FINDINGS: Gallbladder and bile ducts: Gallbladder is mildly distended. Small calcified gallstone at the gallbladder neck. Gallbladder wall is mildly hyperemic but there is no adjacent inflammatory stranding. No bile duct dilation. IMPRESSION: 1. Cholelithiasis. Equivocal appearance of the gallbladder. 2. Borderline splenomegaly. Dictated by Komal Humphreys MD @ 01/09/2024 6:13:31 AM Ultrasound of the abdomen done this morning: FINDINGS: The gallbladder is distended. Gallbladder wall is echogenic and at the upper limits of normal in thickness, 3 millimeters. No pericholecystic fluid. Negative sonographic Quach sign. There are some shadowing stones at the gallbladder neck that measure 1.3 and 0.8 cm. Extrahepatic bile duct is normal and measures 3 millimeters. IMPRESSION: Cholelithiasis. Borderline appearance of the gallbladder with a negative sonographic Quach`s sign. No choledocholithiasis or biliary duct dilatation. Dictated by Komal Humphreys MD @ 01/09/2024 7:12:33 AM Progress Note:A&P Assessment and plan (1) S/P left inguinal hernia repair: Status: Inactive (2) Cholelithiasis: Status: Acute (3) RUQ pain: Status: Acute Plan The patient is a 73-year-old male with cholelithiasis in on relenting right upper quadrant pain, likely representing early cholecystitis. Imaging shows on ly mild gallbladder wall thickening/enhancement but he does have a small stone in the gallbladder neck. He also has a mildly elevated white blood cell count and CRP. His pain is very specifically in the right upper abdomen where he has quite significant guarding. It seems as though the gallbladder is the most likely culprit though he does not have symptoms worsening with eating. I recommended cholecystectomy. We discussed the procedure as well as risks and benefits of surgery which include bleeding, infection, bile leak, conversion to open or injury to other structures, specifically the common bile duct. We also discussed recovery. He is agreeable to proceed. We will plan on admission to the hospital for antibiotics and will plan on cholecystectomy this admission.
--- NOTE | 2024-01-09 07:57 | P.IMHP_ITS ---
Hospitalist- H&P: HPI History of Present Illness Date Seen: 01/09/24 Chief complaint: Right side/ribs hurt Narrative: Sarbjit Berg is a 73 year old male past medical history significant for hypertension, hyperlipidemia, type 2 diabetes mellitus, CKD stage IIIA, ASCVD s/p stenting and CABG is admitted to the medical floor from the ED awaiting cholecystectomy for acute cholelithiasis. Patient reports pain in the right upper quadrant area, initially thought to be right rib pain, for the past 3-4 days. Denies any nausea or vomiting with this pain. Has had a normal appetite. Has had no change in his bowels, his last normal was yesterday. No change in urination. Reports no fevers. Has had no trauma or injury. Denies chest pain or shortness of breath. Denies headache or dizziness previously, only now after receiving IV narcotics. Previous abdominal surgeries include hernia repair. Denies anesthesia complications. No known personal or family history of bleeding disorders. Patient is a former smoker. Denies alcohol use. Wishes to be a full code but no prolonged heroic measures. Review of Systems Narrative: REVIEW OF SYSTEMS: Complete review of systems performed and negative unless otherwise stated in HPI or below. [facility] Medical History Dyslipidemia ?E78.5 - Hyperlipidemia, unspecified (ICD-10) ASCVD (arteriosclerotic cardiovascular disease) ?I25.10 - Atherosclerotic heart disease of [place] coronary artery without angina pectoris (ICD-10) Adenomatous colon polyp ?D12.6 - Benign neoplasm of colon, unspecified (ICD-10) Hypertension ?I10 - Essential (primary) hypertension (ICD-10) Type 2 diabetes mellitus ?E11.9 - Type 2 diabetes mellitus without complications (ICD-10) WARD (dyspnea on exertion) ?R06.09 - Other forms of dyspnea (ICD-10) Stage 3a chronic kidney disease ?N18.31 - Chronic kidney disease, stage 3a (ICD-10) Chronic bronchitis ?J42 - Unspecified chronic bronchitis (ICD-10) Depression ?F32.A - Depression, unspecified (ICD-10) History of coronary angiogram ?Z98.890 - Other specified postprocedural states (ICD-10) Surgical History S/P left inguinal hernia repair ?Z98.890 - Other specified postprocedural states (ICD-10) ?Z87.19 - Personal history of other diseases of the digestive system (ICD-10) S/P insertion of non-drug eluting coronary artery stent ?Z95.5 - Presence of coronary angioplasty implant and graft (ICD-10) History of esophagogastroduodenoscopy (EGD) ?Z98.890 - Other specified postprocedural states (ICD-10) History of colonoscopy ?Z98.890 - Other specified postprocedural states (ICD-10) History of coronary artery bypass graft ?Z95.1 - Presence of aortocoronary bypass graft (ICD-10) History of angioplasty ?Z98.62 - Peripheral vascular angioplasty status (ICD-10) Social History What is your current living situation?: I presently have a place to live Problems where you live: no known problems Problems where you live details: NA In the past 12 months, utilities in danger of being shut off: no In the past 12 mos, have been you worried that your food would run out before you had money to buy more?: never true In the past 12 mos, the food you bought just didn't last and you didn't have money to buy more?: never true Highest level of school completed/degree received: some college, no degree Smoking Status: Never smoker Second hand tobacco smoke exposure: No How often do you have a drink containing alcohol: never AUDIT-C Alcohol total score: 0 Non-prescribed substance use: denies use Caffeine: Yes (some pop) How often does anyone, including family, friends and others, physically hurt you : unable to answer How often does anyone, including family, friends and others, insult or talk down to you: unable to answer How often does anyone, including family, friends and others, threaten you with harm: unable to answer How often does anyone, including family, friends and others, scream or curse at you: unable to answer service: Yes Meds Home Medications and Allergies Home Medications ?Medication ?Instructions ?Recorded ?Confirmed ?Type lisinopril 20 mg tablet 40 mg PO DAILY 03/13/23 01/09/24 History metformin 500 mg tablet 500 mg PO BIDWM 03/13/23 01/09/24 History metoprolol tartrate 75 mg tablet 75 mg PO BID 10/15/23 01/09/24 History glipizide 2.5 mg tablet, extended 2.5 mg PO DAILY 10/30/23 01/09/24 History release 24 hr rosuvastatin 40 mg tablet (Crestor) 40 mg PO HS 10/30/23 01/09/24 History acetaminophen 500 mg tablet 1,000 mg PO Q6H PRN 01/09/24 01/09/24 History aspirin 81 mg tablet,delayed 81 mg PO DAILY 01/09/24 01/09/24 History release multivitamin (Daily Multi-Vitamin 1 tab PO DAILY 01/09/24 01/09/24 History tablet) nitroglycerin 0.4 mg sublingual 0.4 mg sublingual Q5-15M PRN 01/09/24 01/09/24 History tablet Allergies Allergy/AdvReac Type Severity Reaction Status Date / Time amlodipine Allergy edema Verified 12/30/23 10:05 isosorbide (From Imdur) Allergy intolerance Verified 12/30/23 10:05 tamsulosin (From Flomax) Allergy Dizziness Verified 12/30/23 10:05 Exam Narrative: Exam Narrative: PHYSICAL EXAM General: Pleasant, conversant, NAD HEENT: Normocephalic, atraumatic, sclera white, EOMI, oral mucosa moist Cardiovascular: RRR, S1S2. No pitting edema Pulmonary: CTA bilaterally without rhonchi, rales, expiratory wheezes. No dyspnea Abdominal: Soft, nondistended, NTTP currently Neurological: Alert, answering questions appropriately, cranial nerves intact, no focal findings Extremities: No gross joint deformity or swelling. AROMI. Neurovascularly intact Skin: Warm, dry. Const: Vital Signs, click to edit/add: Vital Signs - 24 hr 01/09/24 04:33 01/09/24 05:12 01/09/24 05:13 Temperature 97.8 F Pulse Rate 71 74 Pulse Rate [Pulse Oximeter] 77 Respiratory Rate 16 Blood Pressure 166/83 H Blood Pressure [Ri ght Upper Arm] 191/109 H Pulse Oximetry 97 96 95 Oxygen Delivery Me thod Room Air 01/09/24 05:15 01/09/24 05:30 12/03/24 05:31 Temperature Pulse Rate 71 69 70 Pulse Rate [Pulse Oximeter] Respiratory Rate 16 Blood Pressure 153/82 H Blood Pressure [Ri ght Upper Arm] Pulse Oximetry 96 96 [facility] 05:54 01/09/24 06:00 01/09/24 06:01 Temperature Pulse Rate 76 74 74 Pulse Rate [Pulse Oximeter] Respiratory Rate Blood Pressure 167/89 H Blood Pressure [Ri ght Upper Arm] Pulse Oximetry 96 95 96 [facility] 01/09[facility] 06:02 01/09/24 07:37 Temperature Pulse Rate 74 Pulse Rate [Pulse Oximeter] Respiratory Rate Blood Pressure 164/95 H Blood Pressure [Ri ght Upper Arm] Pulse Oximetry 95 Oxygen Delivery [facility] Hospitalist - H&P: Result Labs Labs: Short CBC 01/09/24 Range/Units 05:02 WBC 10.70 (4.50-11.00) K/uL Hgb 14.1 (13.5-17.5) gm/dL Hct 40.6 (37.0-53.0) % Plt Count 191 (140-440) K/uL [facility] 01/09/24 05:02 Sodium 135 Potassium 3.5 L Chloride 104 Carbon Dioxide 24 BUN 28 Creatinine 1.6 H Glucose 277 H Calcium 9.1 Liver Function 01/09/24 Range/Units 05:02 Total Bilirubin 0.8 (0.1-1.5) mg/dL AST 17 (12-35) U/L ALT 31 (4-50) U/L Alkaline Phosphatase 121 (40-150) U/L Albumin 3.6 (3.3-5.0) g/dL ECG Attestation: I personally reviewed and interpreted this ECG as follows: Interpretation: EKG shows sinus rhythm, first-degree AV block, RBBB Imaging CT scan - abdomen: Attestation: I have reviewed the pertinent imaging results. Radiologist's impression: Lung bases: Linear atelectasis or scarring in both lung bases, mild. Liver: Normal. No mass. Gallbladder and bile ducts: Gallbladder is mildly distended. Small calcified gallstone at the gallbladder neck. Gallbladder wall is mildly hyperemic but there is no adjacent inflammatory stranding. No bile duct dilation. Pancreas: Normal. Spleen: Spleen length is upper limits of normal, 14 centimeters. No focal splenic lesions. Adrenal glands: Normal. Kidneys: Normal renal size and position. Normal renal parenchymal enhancement. There is a 0.8 centimeter right upper pole cyst. No calculi. Minimal bilateral pelviectasis. Neither ureter is significantly dilated. Urinary bladder: Normal. Pelvis: Prostatomegaly. Vessels: Atherosclerotic vascular calcifications. No aortic aneurysm. Mesenteric vessels are patent. Bowel: No dilated or inflamed bowel. Normal appendix. Moderate stool burden. Lymph nodes: No adenopathy. Peritoneum: No ascites. Abdominal wall: Tiny fat containing inguinal hernias. Bones: No fractures. No focal worrisome bone lesions. IMPRESSION: 1. Cholelithiasis. Equivocal appearance of the gallbladder. 2. Borderline splenomegaly. Gallbladder ultrasound: Attestation: I have reviewed the pertinent imaging results. Radiologist's impression: The gallbladder is distended. Gallbladder wall is echogenic and at the upper limits of normal in thickness, 3 millimeters. No pericholecystic fluid. Negative sonographic Quach sign. There are some shadowing stones at the gallbladder neck that measure 1.3 and 0.8 cm. Extrahepatic bile duct is normal and measures 3 millimeters. IMPRESSION: Cholelithiasis. Borderline appearance of the gallbladder with a negative sonographic Quach`s sign. No choledocholithiasis or biliary duct dilatation. Chest x-ray: Attestation: I have reviewed the pertinent imaging results. Radiologist's impression: Lung volumes are good. Mild scarring or atelectasis in the left lung base is similar to prior. No pulmonary edema. No pleural effusion. No pneumothorax. No pneumomediastinum. Unchanged cardiomediastinal silhouette. Atherosclerotic vascular calcifications. Bones: Median sternotomy wires. No acute findings or rib fracture seen. IMPRESSION: No acute findings in the chest. No rib fracture seen. Assessment and Plan Assessment and plan (1) Cholelithiasis: Problem comment: -CT and ultrasound confirmed cholelithiasis without choledocholithiasis or biliary duct dilatation -no leukocytosis, afebrile -ED provider discussed with General surgery, Dr. Solis, begin IV antibiotics and plan for potential cholecystectomy later this afternoon or possibly tomorrow -IV ertapenem -NPO for now, LR IVF -pain and nausea management as needed Status: Acute (2) Stage 3a chronic kidney disease: Problem comment: -creatinine 1.6, baseline 1.6-1.9 -avoid nephrotoxic medications, renally dose antibiotics, continue to monitor Status: Acute (3) Hypertension: Problem comment: -continue lisinopril and metoprolol Status: Acute (4) Type 2 diabetes mellitus: Problem comment: -hold home metformin, continue glipizide, statin -glucose checks ACHS. Will add insulin sliding scale post operatively Status: Acute Plan Awaiting cholecystectomy Total Time Spent Total Time Spent: Total time spent caring for the patient today was 75 minutes. This includes time spent for the visit reviewing the chart, time spent during the visit, time spent after the visit and documentation and planning in coordination of care.
[2024-01-09] MEDS: ERTAPENEM 1 GM in 0.9 % SODIUM CHLORIDE Mini-bag 100 ML IVPB (07:59)
[2024-01-09] MEDS: LACTATED RINGERS 1000 ML 1,000 ML 125 ML IV ×3 (08:33→20:30)
[2024-01-09] MEDS: HYDROmorphone 0.5 mg/0.5 ml inj IVP (09:03)
[2024-01-09] MEDS: ACETAMINOPHEN 325 MG TABLET 975 MG PO ×2 (12:35→21:17)
[2024-01-09] MEDS: CEFAZOLIN 1 GM in 0.9 % SODIUM CHLORIDE Mini-bag 100 ML IVPB (18:06)
--- NOTE | 2024-01-09 18:50 | PC.NURSE ---
Nursing Care Hours: [id number] Pt this shift arrived to unit via w/c. Alert and oriented, calm and cooperative. Independent ambulation. Pain controlled and tolerated at 5/10 and pain decreased to 2/10 while resting and maintaining NPO. Tylenol given for mild headache with sip of water. Prepped for surgery, BS and VS checked. Pt had no questions or concerns. IS went over with pt prior to surgery.
--- NOTE | 2024-01-09 19:26 | P.GSOP_ITS ---
Operative Note Date of procedure: 01/09/24 Pre-op diagnosis: Cholelithiasis with persistent right upper quadrant pain concerning for acute cholecystitis Post-op diagnosis: Same Type of Procedure: Laparoscopic cholecystectomy Indications: The patient is a 73-year-old male who presented to the emergency department with severe right upper quadrant pain. Workup revealed possible gallbladder wall thickening with gallstones. He had a mildly elevated CRP and left shift of his white blood cell count. His pain was persistent and severe and because of ongoing symptoms, I recommended cholecystectomy and after discussion of risks and benefits, the patient agreed to proceed. Procedure Description: After discussing the risks and benefits of the procedure, the patient signed informed consent.? The operative site was marked and the patient was brought to the operating room and placed on the operating table in supine position.? Care was taken to pad the patient's pressure points.?? The patient was then intubated by anesthesia.?? The operative site was then prepped and draped in the usual s terile fashion.? A time-out was then performed. Entrance to the abdomen was gained via a 5 mm Visiport in the left upper quadrant. The abdomen was insufflated and briefly surveyed for signs of injury. There was none. A 10 mm umbilical port was placed as well as 2 working ports along the right costal margin, all under direct vision. The patient was then placed in reverse Trendelenburg position with the right side up. The gallbladder fundus was grasped and retracted cephalad. The gallbladder was not overtly distended. Just below the gallbladder there was a pulsatile tortuous structure which appeared to be the right hepatic artery. This was avoided in the dissection however noted. The infundibulum was grasped. A combination of hook cautery and blunt dissection was used to carefully dissect out the cystic duct and artery until they could clearly be seen entering the gallbladder without any intervening structures. The gallbladder was dissected off the cystic plate to achieve the critical view. The cystic artery was clipped with 2 clips proximal 1 clip distal. The cystic duct had several small vessels adherent to it. These were carefully dissected free and either clipped or cauterized. The duct was mildly enlarged. It was palpated. There did not appear to be any stones impacted within. Once I was able to skeletonize the duct, I placed 2 clips distally and divided the duct, transecting it with a scissor. I was able to get 2 clips just across the duct, however given that it was slightly dilated a Vicryl endoloop was also placed around the cystic duct stump. The gallbladder was then taken off of the liver bed and removed from the abdomen using an Endo-Catch bag. The gallbladder bed was surveyed for hemostasis which appeared adequate. A small amount of bile which had spilled was suctioned from the abdomen. The ports were then removed and the abdomen desufflated. The umbilical port site fascia was closed with 0 Vicryl. The skin was closed with absorbable subcuticular suture. Sterile dressings were applied. Instrument sponge and needle counts were correct at the end of the case. The patient was then woken and transferred to the PACU in stable condition. ? The patient tolerated the procedure well. Findings: Gallbladder without overt cholecystitis noted. Anesthesia: GETA Surgeon: Alejandra Solis MD Estimated blood loss (mL): 10 Specimen: Gallbladder Condition: stable Disposition: PACU
--- NOTE | 2024-01-09 19:29 | P.ANES_ITS ---
Anesthesia Charges Start Date/Time Anesthesia Start Date: 01/09/24 Anesthesia Start Time: 17:53 Stop Date/Time Anesthesia Stop Date: 01/09/24 Anesthesia Stop Time: 19:25 Summary Extremes of Age - Over 70 or under 1: [employer]
[2024-01-09] MEDS: METOPROLOL TARTRATE 50 MG TABLET 75 MG PO (20:33)
[2024-01-09] MEDS: ROSUVASTATIN CALCIUM 10 MG TABLET 40 MG PO (20:33)
[2024-01-10 00:04] VITALS: BP 155/89; PULSE 90; RESP 16; O2SAT 93
[2024-01-10 01:06] VITALS: BP 156/87; PULSE 87; RESP 16; TEMP 36.5; O2SAT 93
[2024-01-10 02:04] VITALS: BP 144/80; PULSE 87; RESP 16; TEMP 36.5; O2SAT 94
--- NOTE | 2024-01-10 06:24 | PC.NURSE ---
End of shift [id number]: Pt came to the floor from PACU at 1999. He?s been A&O, afebrile and VSS. HS blood sugar: 110. Pt rates umbilical tenderness at 05/16; PRN Tylenol given x1 dose @ 2119. Ice pack on/off abdomen all night. Lap sites x3 C/D/I and umbilical site dressing was saturated with bloody drainage so a new 2x2 gauze was placed. PIV in left FA SL this morning otherwise he took in 1L of LR @ 125 mL/hr overnight. Up independently in his room with a steady gait. He was advanced to a regular diet with no c/o nausea or abd pain. Adequate U/O overnight. Pt plans to discharge home today 01/09.?
[2024-01-10 07:00] VITALS: RESP 18; O2SAT 94
[2024-01-10 07:31] LABS: Albumin* 3.4 g/dL (3.3-5.0); Chloride* 100 mmol/L (96-114); Potassium* 4.2 mmol/L (3.6-5.1); Sodium* 134 mmol/L (135-149)
[2024-01-10 07:33] LABS: Anion Gap 11 mEq/L (7-15); Carbon Dioxide* 23 mmol/L (20-32); Creatinine* 1.6 mg/dL (0.5-1.5); Est. Creatinine Clearance* 39.19; Estimated Glomerular Filt Rate 45 ml/min
[2024-01-10 07:34] LABS: Alanine Aminotransferase* 25 U/L (4-50); Alkaline Phosphatase* 85 U/L (40-150); Aspartate Amino Transferase* 14 U/L (12-35); Blood Urea Nitrogen* 30 mg/dL (7-30); Glucose* 251 mg/dL (60-115); Total Protein* 5.9 g/dL (6.0-8.3)
[2024-01-10 07:35] LABS: Calcium* 8.9 mg/dL (8.4-10.6)
[2024-01-10 07:37] LABS: Hematocrit 39.3 % (37.0-53.0); Hemoglobin* 13.8 gm/dL (13.5-17.5); Mean Corpuscular HGB Conc 35 gm/dL (32-36); Mean Corpuscular Hemoglobin 31 pg (26-34); Mean Corpuscular Volume 88 fL (80-100); Platelet Count* 210 K/uL (140-440); Red Blood Count 4.47 m/uL (4.30-5.90); White Blood Count* 13.56 K/uL (4.50-11.00)
[2024-01-10 07:48] LABS: Slide Review Reflex No
[2024-01-10] MEDS: ACETAMINOPHEN 325 MG TABLET 975 MG PO (08:11)
[2024-01-10] MEDS: glipiZIDE 2.5 MG ER TAB PO (08:11)
[2024-01-10] MEDS: lisinopriL 20 MG TABLET 40 MG PO (08:12)
[2024-01-10] MEDS: METOPROLOL TARTRATE 50 MG TABLET 75 MG PO (08:12)
--- NOTE | 2024-01-10 10:02 | NUTR.NU ---
RDN with diet education related to current diet order. Patient admitted with acute cholelithiasis, underwent cholecystectomy 01/09/2024. Past medical history includes but not limited to hypertension, hyperlipidemia, type 2 diabetes mellitus, CKD stage IIIA, ASCVD s/p stenting and CABG. Current diet order is diabetic. No intakes yet recorded to assess. Current weight 163 lb 12.8oz; height 5ft 8in; BMI 24.9 kg/m2. Per weight history, weight has been stable recently without significant changes. RDN visited with patient whom reports feeling well. He was able to eat and tolerate breakfast this morning. He declined diet education related to diabetes, however asked about diet for removal of gallbladder. Patient agreed to receive diet education related to low fat diet. Patient was provided diet education on a low fat diet. Discussed foods to include and foods to avoid. Education also provided following a low fat diet (about 60 grams/day) long-term. Verbal and written information as well as a sample menu provided from [facility]. Patient verbalized understanding. RDN's contact information was provided and patient was encouraged to contact RDN with questions.
--- NOTE | 2024-01-10 12:16 | PC.NURSE ---
shift note: vss stable. pt up indept. pt c/o LEVY this a.m and received prn tylenol with ice to back of neck. pt stated LEVY better after an hour of rest. LS clr. Lap sites intact x3. No new drainage. BS active x4. pt states he's passing flatus and burping. IV dc'd after review of dc instructions. copies of dc sent with pt. Belongings reviewed and sent with pt at dc.
--- NOTE | 2024-01-10 14:29 | SUR.OPER ---
Anesthesia end time and verification of case confirmed with Evert Ceja by this nurse. Alesia Castillo
--- NOTE | 2024-01-11 13:59 | PM.DS1 ---
DS: Providers Provider Date Seen: 01/09/24 Date of admission: 01/09/24 Primary care physician: EARNEST MARINO DO Consults: 01/09/24 07:26 Consult to Physician [CONS] Urgent Comment: Consulting Provider: Alejandra Solis Has provider been notified: Yes Attending Physician on discharge: Alejandra Solis MD DS: Diagnosis Discharge Diagnosis (1) S/P laparoscopic cholecystectomy: Status: Acute (2) Type 2 diabetes mellitus: Status: Acute Problem details: -hold home metformin, continue glipizide, statin -glucose checks ACHS. Will add insulin sliding scale post operatively (3) Stage 3a chronic kidney disease: Status: Acute Problem details: -creatinine 1.6, baseline 1.6-1.9 -avoid nephrotoxic medications, renally dose antibiotics, continue to monitor DS: Summary Hospital Course Hospital Course: The patient was admitted on 01/09/2024 with right upper quadrant pain radiating to his back. Workup revealed gallstones and possible gallbladder wall thickening. Clinically he had very clear right upper quadrant pain and therefore cholecystectomy was recommended. He was admitted to the hospital and underwent cholecystectomy later that day. This was on a bent full. He was tolerating a diet, had excellent pain control on oral meds with stable vital signs and was deemed safe for discharge home on postop day 1 Time Spent with Patient Time attestation: Total time spent providing and/or coordinating discharge services: Discharge Plan Discharge Disposition: Home w/ Parent or Adult Discharging Surgeon: Alejandra Solis Follow-Up Appointment: 2 weeks, mable Prescriptions: New hydrocodone-acetaminophen 5-325 mg Tablet 1 - 2 tab PO Q6H PRN (Reason: Pain) Qty: 15 0RF Continued metformin 500 mg tablet 500 mg PO BIDWM lisinopril 20 mg tablet 40 mg PO DAILY glipizide 2.5 mg tablet extended release 24hr 2.5 mg PO DAILY rosuvastatin [Crestor] 40 mg tablet 40 mg PO HS metoprolol tartrate 75 mg tablet 75 mg PO BID acetaminophen 500 mg tablet 1,000 mg PO Q6H PRN aspirin 81 mg tablet,delayed release (DR/EC) 81 mg PO DAILY multivitamin [Daily Multi-Vitamin] Tablet 1 tab PO DAILY nitroglycerin 0.4 mg tablet, sublingual 0.4 mg sublingual Q5-15M PRN Rx Instructions: do not exceed 3 doses per episode Activity Level: Activity as Tolerated Activity Detail: No lifting more than 20 lb for 2 weeks Discharge Diet: Diabetic Patient Instructions: Hydrocodone/Acetaminophen (By mouth), Laparoscopic Cholecystectomy (DC) Additional Instructions: Wound care: Your sutures are under the skin and will dissolve over time. Leave steri strips (white bandages) over incisions until they fall off (or remove after 7 days). OK to shower tomorrow but avoid bathing, soaking or swimming for 2 weeks. Pat the incisions dry. No need to wash or scrub the area. Apply ice to the area as needed for swelling. It is also OK to use a heating pad if this provides more comfort to you. Pain control: You were prescribed a pain medication. This medication contains acetaminophen (Tylenol). If you are taking your prescribed pain pills 4 times daily, do not take additional acetaminophen. As your pain improves, you can try taking acetaminophen instead of the prescribed pain pill. It is ok to take Ibuprofen or Naproxen (per directions on packaging). This medication helps with inflammation and swelling. Take an [id number] stool softener while you are taking prescribed pain medications to help alleviate constipation. I recommend Senna and/or Colace. Take as directed on package. If you have not had a bowel movement in 3 days, try taking Miralax as directed on the package. All of these are available over the counter. Follow-up Follow up with Dr. Solis in 2-3 weeks Please call if you are experiencing severe pain, nausea, vomiting, difficulty urinating, fever or have not had bowel movement in 4 days after surgery. Follow-up: Alejandra Solis MD [Staff Physician] - 01/23/24 1:30 pm ([facility] for follow-up.) EARNEST MARINO DO [Primary Care Provider] - Discharge Orders: Discharge Order (Routine); Ordered 01/10/24 Ordered By: Alejandra Solis
== END 2024-01-10 10:45 | disposition home or self-care (01) ==
LOC: ED 08:08 → OR 09:27 → MEDSURG 09:27
PROVIDERS: Physician Assistant; Emergency Provider Family Medicine; PCP Student in an Organized Health Care Education/Training Program; Visit Provider Surgery
PROC: 0FT44ZZ Resection of Gallbladder, Percutaneous Endoscopic Approach (ICD-10-PCS; CPT 47562; principal; 2024-01-09 17:00)
DX: K80.10 Calculus of gallbladder with chronic cholecystitis without obstruction (principal); R10.11 Right upper quadrant pain; I12.9 Hypertensive chronic kidney disease with stage 1 through stage 4 chronic kidney disease, or unspecified chronic kidney disease; E11.22 Type 2 diabetes mellitus with diabetic chronic kidney disease; N18.31 Chronic kidney disease, stage 3a; Z79.84 Long term (current) use of oral hypoglycemic drugs; E78.5 Hyperlipidemia, unspecified; I25.10 Atherosclerotic heart disease of native coronary artery without angina pectoris; Z98.62 Peripheral vascular angioplasty status; Z95.1 Presence of aortocoronary bypass graft; Z95.5 Presence of coronary angioplasty implant and graft; I45.10 Unspecified right bundle-branch block
CPT/HCPCS: 47562; 00790; 36415; 71046; 74177; 76705; 80053; 82962; 83605; 83690; 84484; 85025; 85027; 86140; 88304; 93005; 99100; 99284; 99285; A9270; J0330; J0690; J1100; J1171; J1335; J2250; J2371; J2405; J2704; J2710; J3010; J7120; Q9967

== ENCOUNTER 2024-01-11 13:31 | Emergency (ER) | payer MEDICARE, SELFPAY ==
[2024-01-11] VITALS (28 sets, daily range): BP systolic 130–169; BP diastolic 73–93; PULSE 62–70; RESP 16–18; TEMP 36.3; O2SAT 94–96; BMI 24.7
--- NOTE | 2024-01-11 | CRLHL7_ITS ---
For Patients: As a result of the Century Cures Act, medical imaging exams and procedure reports are released immediately into your electronic medical record. You may view this report before your referring provider. If you have questions, please contact your health care provider. INDICATIONS: Chest pain. Abdominal pain. TECHNIQUE: CT chest, abdomen and pelvis acquired with 95 cc of Isovue [address] chest was performed per PE protocol. Sagittal, coronal and maximum intensity projection reformatted images submitted for review. COMPARISON: CT chest with contrast 03/16/2023. CT abdomen and pelvis with contrast 01/09/2024. FINDINGS: Chest: No evidence of pulmonary embolus. Aortic atherosclerosis. The thoracic aorta is normal in caliber. Stable heart size with coronary artery calcifications, as before. No pleural or pericardial effusions. No pathologic lymphadenopathy. Soft tissues of the thoracic wall are unremarkable. No pneumothorax. Trace pneumomediastinum likely related to free intraperitoneal gas in the abdomen. Central airways are patent. Bibasilar scarring or atelectasis, right greater than left. Lungs are otherwise clear. Abdomen: No focal liver lesion. Mild splenomegaly, unchanged. No CT evidence of pancreatitis. No adrenal nodule. Subcentimeter renal cysts, unchanged. No urolithiasis or hydronephrosis. Interval cholecystectomy. Mild heterogeneity about the gallbladder fossa. No suspicious fluid collection. No biliary ductal dilatation. No bowel obstruction or acute inflammatory change of the GI tract. There is small volume pneumoperitoneum likely related to recent cholecystectomy. No pathologic lymphadenopathy or free fluid. Atherosclerotic disease. No abdominal aortic aneurysm. Pelvis: Prostatomegaly. Bladder as imaged is unremarkable. The pelvic portions of the GI tract are unremarkable. No pathologic lymphadenopathy or free fluid. Bone windows: Degenerative changes spine and pelvis. No acute or suspicious abnormality. IMPRESSION: 1. No evidence of pulmonary embolus. 2. Bibasilar atelectasis, right greater than left. 3. Small volume pneumoperitoneum is thought to represent sequela of recent cholecystectomy. No bowel obstruction or focal inflammatory change of the GI tract. 4. Mild heterogeneity about the gallbladder fossa is also likely postoperative in nature. No suspicious fluid collection or biliary ductal dilatation. Dictated by Lv Nuñez MD @ 01/11/2024 5:21:30 PM Please note that all CT scans at this facility use dose modulation, iterative reconstruction, and/or weight-based dosing when appropriate to reduce radiation dose to as low as reasonably achievable. Dictated by: Lv Nuñez MD @ 01/11/2024 17:22:23 (Electronically Signed)
--- NOTE | 2024-01-11 13:51 | ED_ITS ---
HPI - General Adult General Date Seen: 01/11/24 Chief complaint: Chest Pain Stated complaint: chest pain Time Seen by Provider: 01/11/24 13:40 History of Present Illness HPI narrative: 73-year-old gentleman with a history chronic kidney disease stage 3, type 2 jameson betes, hypertension, gallstones and cholecystitis, coronary disease with stent, CABG, aortic aneurysm, He was in the ER 2 days ago on 01/08 for right rib pain, but on exam had right upper quadrant abdominal pain. Temp was 97.8?, blood pressure 166/83, pulse ox 97. Workup in the ER showed white count of 10.7, hemoglobin 14, platelet count 191. Sodium 135, potassium 3 5, chloride 104, bicarb 24, BUN 28, creatinine 1.6, glucose 277. Venous lactic was 1.9. AST 17, ALT 31, total bilirubin 0.8. Troponin was 0.00. CT scan of the abdomen pelvis showed cholelithiasis with equivocal appearance of the gallbladder. There was a fluid line around the superior aspect of the gallbladder suspicious for cholecystitis. Also CT scan showed borderline splenomegaly. Gallbladder ultrasound showed gallstones with borderline appearance of the gallbladder with a negative sonographic Quach sign. No choledocholithiasis or biliary duct dilation. Received IV ertapenem. He was transferred to the OR for cholecystectomy with suspected cholecystitis causing his pain. He had a routine laproscopic cholecystectomy. Gallbladder turned out to be grossly normal. He was feeling better yesterday, POD 1, and was discharged. He has been feeling pretty well since discharge. He does feel some ?tenderness? off and on his right upper quadrant but that is not terribly bothersome. No fever. No trouble breathing. No nausea or vomiting. Bowel movements normal. He does have some new bruising on his left johnson just above the top of his boot. No known injury. No calf pain. No other leg swelling. Today at about 1:00 p.m. he was sitting on the couch when had abrupt onset of a different pain. This is a substernal central chest discomfort. It is different than the ?right rib pain? that brought him to the hospital 2 days ago. He took 1 nitro and got better but has not resolved. He is not short of breath. No nausea. No palpitations. Pain is somewhat reminiscent of when he had his bypass. He had a coronary artery bypass grafting with 3 bypasses 13 years ago. At that time he also had surgical repair of a thoracic aortic aneurysm. Since his bypass he has had ongoing coronary disease and did get stents again, most recently about 3 years ago. He also has high blood pressure. He has chronic kidney disease. Because of his kidney disease a doctor in [place] took him off some of his blood pressure medications last spring. Since then the his blood pressures been running higher and he is worried about his uncontrolled high blood pressure causing further damage to his coronary arteries or further damage to his kidneys. Blood pressure today is about 170/90. Says in the past when he has come to the ER his blood pressure has been as high as 210/100. He is not having any headache. No focal neurologic symptoms. Related Data Home Medications ?Medication ?Instructions ?Recorded ?Confirmed lisinopril 20 mg tablet 40 mg PO DAILY 03/13/23 01/09/24 metformin 500 mg tablet 500 mg PO BIDWM 03/13/23 01/09/24 metoprolol tartrate 75 mg tablet 75 mg PO BID 10/15/23 01/09/24 glipizide 2.5 mg tablet, extended 2.5 mg PO DAILY 10/30/23 01/09/24 release 24 hr rosuvastatin 40 mg tablet (Crestor) 40 mg PO HS 10/30/23 01/09/24 acetaminophen 500 mg tablet 1,000 mg PO Q6H PRN 01/09/24 01/09/24 aspirin 81 mg tablet,delayed 81 mg PO DAILY 01/09/24 01/09/24 release multivitamin (Daily Multi-Vitamin 1 tab PO DAILY 01/09/24 01/09/24 tablet) nitroglycerin 0.4 mg sublingual 0.4 mg sublingual Q5-15M PRN 01/09/24 01/09/24 tablet Previous Rx's ?Medication ?Instructions ?Recorded hydrocodone 5 mg-acetaminophen 325 1 - 2 tab PO Q6H PRN Pain #15 tabs 01/10/24 mg tablet Allergies Allergy/AdvReac Type Severity Reaction Status Date / Time amlodipine Allergy edema Verified 12/30/23 10:05 isosorbide (From Imdur) Allergy intolerance Verified 12/30/23 10:05 tamsulosin (From Flomax) Allergy Dizziness Verified 12/30/23 10:05 PFSH PFSH Medical History Dyslipidemia ?E78.5 - Hyperlipidemia, unspecified (ICD-10) ASCVD (arteriosclerotic cardiovascular disease) ?I25.10 - Atherosclerotic heart disease of [place] coronary artery without angina pectoris (ICD-10) Adenomatous colon polyp ?D12.6 - Benign neoplasm of colon, unspecified (ICD-10) Hypertension ?I10 - Essential (primary) hypertension (ICD-10) Type 2 diabetes mellitus ?E11.9 - Type 2 diabetes mellitus without complications (ICD-10) WARD (dyspnea on exertion) ?R06.09 - Other forms of dyspnea (ICD-10) Stage 3a chronic kidney disease ?N18.31 - Chronic kidney disease, stage 3a (ICD-10) Chronic bronchitis ?J42 - Unspecified chronic bronchitis (ICD-10) Depression ?F32.A - Depression, unspecified (ICD-10) History of coronary angiogram ?Z98.890 - Other specified postprocedural states (ICD-10) Surgical History S/P left inguinal hernia repair ?Z98.890 - Other specified postprocedural states (ICD-10) ?Z87.19 - Personal history of other diseases of the digestive system (ICD-10) S/P insertion of non-drug eluting coronary artery stent ?Z95.5 - Presence of coronary angioplasty implant and graft (ICD-10) History of esophagogastroduodenoscopy (EGD) ?Z98.890 - Other specified postprocedural states (ICD-10) History of colonoscopy ?Z98.890 - Other specified postprocedural states (ICD-10) History of coronary artery bypass graft ?Z95.1 - Presence of aortocoronary bypass graft (ICD-10) History of angioplasty ?Z98.62 - Peripheral vascular angioplasty status (ICD-10) Social History What is your current living situation?: unable to answer Problems where you live: unable to answer Problems where you live details: NA In the past 12 months, utilities in danger of being shut off: unable to answer In the past 12 mos, have been you worried that your food would run out before you had money to buy more?: unable to answer In the past 12 mos, the food you bought just didn't last and you didn't have money to buy more?: unable to answer Highest level of school completed/degree received: some college, no degree Smoking Status: Never smoker Do you use any of these nicotine containing products: None Second hand tobacco smoke exposure: No How often do you have a drink containing alcohol: never AUDIT-C Alcohol total score: 0 Non-prescribed substance use: denies use Caffeine: Yes (some pop) How often does anyone, including family, friends and others, physically hurt you : unable to answer How often does anyone, including family, friends and others, insult or talk down to you: unable to answer How often does anyone, including family, friends and others, threaten you with harm: unable to answer How often does anyone, including family, friends and others, scream or curse at you: unable to answer service: Yes Exam Narrative: Exam Narrative: Constitutional: Appears well-developed and well-nourished. Alert. Conversant. Polite. Non toxic. HENT: Head: Atraumatic. Nose: Nose normal. Mouth/Throat: Oral mucosa is clear and moist. no trismus. Pharynx normal. Eyes: Conjunctivae normal. EOM normal. Pupils equal, round, and reactive to light. No scleral icterus. Neck: Normal range of motion. Neck supple. No tracheal deviation present. No JVD Cardiovascular: Normal rate, regular rhythm. No gallop. No friction rub. No murmur heard. Symmetric radial and PT artery pulses Pulmonary/Chest: Effort normal. No stridor. No respiratory distress. No wheezes. No rales. No rhonchi . No ribcage tenderness. Abdominal: Soft. Bowel sounds normal. Mild right upper quadrant tenderness. He has laparoscopic incisions with Steri-Strips in place. All the incisions look good. No drainage. No bleeding. No redness. No mass. No tenderness. No rebound. No guarding. No CVA tenderness. Musculoskeletal: RUE: Normal range of motion. No tenderness. No deformity LUE: Normal range of motion. No tenderness. No deformity RLE: Normal range of motion. No edema. No tenderness. No deformity. Chronic skin brook on his anterior johnson which is apparently due to a bruise that happened over a year ago. LLE: Normal range of motion. No edema. No tenderness. No deformity there is a horseshoe shaped area of ecchymosis affecting the anterior johnson just at the top of the patient's leather boot. I removed his boot for exam. No other bruising. No posterior tenderness. No calf swelling. No palpable cord Lymph: No cervical adenopathy. Neurological: Alert and oriented to person, place, and time. Normal strength. CN II-VII intact. No sensory deficit. GCS eye subscore is 4. GCS verbal subscore is 5. GCS motor subscore is 6. Normal coordination Skin: Skin is warm and dry. No rash noted. No pallor. Normal capillary refill. Psychiatric: Normal mood. Normal affect. Polite. Const: Vital Signs, click to edit/add: Vital Signs - 24 hr 01/11/24 13:43 01/11/24 13:56 01/11/24 14:00 Temperature 97.4 F L Pulse Rate 68 69 Pulse Rate [Pulse Oximeter] 66 Respiratory Rate 18 Blood Pressure Blood Pressure [Ri ght Upper Arm] 169/91 H Pulse Oximetry 96 95 96 Oxygen Delivery Me thod Room Air 01/11/24 14:15 01/11/24 14:43 01/11/24 14:45 Temperature Pulse Rate 69 66 66 Pulse Rate [Pulse Oximeter] Respiratory Rate 16 Blood Pressure 138/75 Blood Pressure [Ri ght Upper Arm] Pulse Oximetry 96 95 95 Oxygen Delivery Me thod Room Air 01/11/24 15:00 01/11/24 15:02 01/11/24 15:15 Temperature Pulse Rate 68 67 68 Pulse Rate [Pulse Oximeter] Respiratory Rate Blood Pressure 139/77 Blood Pressure [Ri ght Upper Arm] Pulse Oximetry 94 94 94 Oxygen Delivery Me thod 01/11/24 15:21 01/11/24 15:30 01/11/24 15:43 Temperature Pulse Rate 67 68 68 Pulse Rate [Pulse Oximeter] Respiratory Rate Blood Pressure 134/75 134/73 Blood Pressure [Ri ght Upper Arm] Pulse Oximetry 95 95 95 Oxygen Delivery Me thod 01/11/24 15:45 01/11/24 16:00 01/11/24 16:02 Temperature Pulse Rate 65 63 67 Pulse Rate [Pulse Oximeter] Respiratory Rate Blood Pressure 130/76 Blood Pressure [Ri ght Upper Arm] Pulse Oximetry 95 95 94 Oxygen Delivery Me thod 01/11/24 16:03 01/11/24 16:21 01/11/24 16:22 Temperature Pulse Rate 68 69 70 Pulse Rate [Pulse Oximeter] Respiratory Rate 18 Blood Pressure 158/87 H Blood Pressure [Ri ght Upper Arm] Pulse Oximetry 94 94 Oxygen Delivery Me thod Room Air 01/11/24 16:23 01/11/24 16:41 01/11/24 17:02 Temperature Pulse Rate 67 70 66 Pulse Rate [Pulse Oximeter] Respiratory Rate Blood Pressure Blood Pressure [Ri ght Upper Arm] Pulse Oximetry 95 96 96 Oxygen Delivery Me thod 01/11/24 17:03 01/11/24 17:04 01/11/24 17:15 Temperature Pulse Rate 67 62 68 Pulse Rate [Pulse Oximeter] Respiratory Rate 18 Blood Pressure 132/80 Blood Pressure [Ri ght Upper Arm] Pulse Oximetry 96 95 95 Oxygen Delivery Me thod Room Air 01/11/24 17:30 01/11/24 17:45 01/11/24 18:00 Temperature Pulse Rate 68 66 67 Pulse Rate [Pulse Oximeter] Respiratory Rate Blood Pressure Blood Pressure [Ri ght Upper Arm] Pulse Oximetry 96 96 95 Oxygen Delivery Me thod 01/11/24 18:02 Temperature Pulse Rate 70 Pulse Rate [Pulse Oximeter] Respiratory Rate 16 Blood Pressure 162/93 H Blood Pressure [Ri ght Upper Arm] Pulse Oximetry 96 Oxygen Delivery Me thod Room Air Course Vital Signs Vital signs: Initial Vital Signs Temperature 97.4 F L 01/11/24 13:43 Temperature Source Temporal Artery Scan 01/11/24 13:43 Pulse Rate 66 01/11/24 13:43 Respiratory Rate 18 01/11/24 13:43 Blood Pressure 169/91 H 01/11/24 13:43 Blood Pressure Mean 117 H 01/11/24 13:43 Pulse Oximetry 96 01/11/24 13:43 Oxygen Delivery Method Room Air 01/11/24 13:43 Vital Signs Temperature 97.4 F L 01/11/24 13:43 Pulse Rate 66 01/11/24 13:43 Respiratory Rate 18 01/11/24 13:43 Blood Pressure 169/91 H 01/11/24 13:43 Pulse Oximetry 96 01/11/24 13:43 Oxygen Delivery Method Room Air 01/11/24 13:43 Temperature 97.4 F L 01/11/24 13:43 Pulse Rate 70 01/11/24 18:02 Respiratory Rate 16 01/11/24 18:02 Blood Pressure 162/93 H 01/11/24 18:02 Pulse Oximetry 96 01/11/24 18:02 Oxygen Delivery Method Room Air 01/11/24 18:02 Medications Administered Medications: Discontinued Medications Generic Name Dose Route Start Last Admin Trade Name Chad PRN Reason Stop Dose Admin Aspirin 162 mg 01/11/24 14:12 01/11/24 14:42 Aspirin 81 Mg Tab.Chew PO 01/11/24 14:13 162 mg ONCE ONE Administration Medical Decision Making MDM Narrative Medical decision making narrative: Very pleasant 73-year-old gentleman with a known history of coronary disease status post CABG and subsequent stents. He also has a history of thoracic aortic aneurysm repair. He also has a history of cholecystectomy 2 days ago. He had been healing well put after his cholecystectomy but then had abrupt onset of substernal chest pain at about 1:00 a.m. this afternoon, prompting his return visit to the ER. Initial concern is for possible acute coronary syndrome. EKG upon arrival to the ER shows no definite ST segment elevation or depression. 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 Initial troponin is negative. However given time since onset of symptoms, we did check delta troponin which is unchanged and normal. At this point no evidence for acute coronary syndrome. He is also having some right upper quadrant pain and tenderness. He says that is been coming going going since surgery but that is not the main reason why he came in. He was concerned about his chest pain. Consider possible surgical complications such as bile leak, gallbladder fossa infection, or retained common bile duct stone. Laboratory workup does show new abnormality of the LFTs. Total bilirubin is normal at 0.6 but AST is elevated at 205 (increased from 14, yesterday) and ALT is 80 (was 25 yesterday). Alk-phos is also elevated 211 (was 85 yesterday). Lipase is normal Also consider possible postoperative DVT, but the pain is not really pleuritic. D-dimer is abnormal. The patient does have chronic renal insufficiency. Creatinine is up slightly from a baseline of 1.6 up to 1.9. There is risk for contrast nephropathy but overall need for CT scan outweighs the risk Chest CT is negative for PE. CT abdomen pelvis shows expected postoperative changes with a small amount of pneumoperitoneum and some mild inflammatory change in the gallbladder fossa but no obvious complications such as bile duct dilation, bile leak, abscess formation, hematoma formation. Discussed with surgery, Dr. Solis. The she graciously came here to the ER to evaluate the patient. His pain is now resolved. She suspects he probably passed a retained common bile duct stone this afternoon. He will need careful monitoring. We discussed options including transfer to a tertiary center for evaluation an ERCP, admission here in [place] for lab monitoring and MRCP. Ultimately, after meeting with the patient, Dr. Solis suggest that we discharge the patient home and have him follow up with her clinic tomorrow morning for repeat labs. Since he is currently pain-free and prefers discharge, I will support that plan. Patient is counseled to return to the ER immediately with any recurrent episodes of pain, or any other symptoms such as fever, trouble breathing, nausea vomiting, or any other problems. If he is well overnight he will follow-up with Dr. Solis in clinic tomorrow morning. Lab Data Labs: Lab Results 01/11/24 01/11/24 01/11/24 Range/Units 14:13 14:35 16:07 WBC 8.40 (4.50-11.00) K/uL RBC 4.29 L (4.30-5.90) m/uL Hgb 12.9 L (13.5-17.5) gm/dL Hct 37.9 (37.0-53.0) % MCV 88 (80-100) fL MCH 30 (26-34) pg MCHC 34 (32-36) gm/dL RDW Coeff of [place] 13.7 (11.5-15.5) % Plt Count 207 (140-440) K/uL Neut % (Auto) 79.4 H (42.0-72.0) % Lymph % (Auto) 10.7 L (20-44) % [place] % (Auto) 7.3 (0.0-11.0) % Eos % (Auto) 1.9 (0.0-7.0) % Baso % (Auto) 0.2 (0.0-3.0) % Neut # (Auto) 6.70 (1.7-7.0) K/uL Lymph # (Auto) 0.90 (0.90-2.90) K/uL [place] # (Auto) 0.60 (0.00-0.90) K/UL Eos # (Auto) 0.16 (0.00-0.50) K/uL Baso # (Auto) 0.02 (0.00-0.30) K/uL Abs Immat Gran (auto) 0.04 (0.00-0.30) K/uL Imm/Tot Granulo (auto) 0.5 % D-Dimer Quant (PE/DVT) 1.34 H (0.00-0.50) ug/ml Sodium 137 (135-149) mmol/L Potassium 3.7 (3.6-5.1) mmol/L Chloride 101 (96-114) mmol/L Carbon Dioxide 30 (20-32) mmol/L Anion Gap 6 L (7-15) mEq/L BUN 39 H (7-30) mg/dL Creatinine 1.9 H (0.5-1.5) mg/dL Estimated Creat Clear 33.00 Estimated GFR 37 ml/min Glucose 222 H (60-115) mg/dL Calcium 9.1 (8.4-10.6) mg/dL Total Bilirubin 0.6 (0.1-1.5) mg/dL AST 205 H (12-35) U/L ALT 80 H (4-50) U/L Alkaline Phosphatase 211 H (40-150) U/L Total Protein 5.9 L (6.0-8.3) g/dL Albumin 3.3 (3.3-5.0) g/dL Lipase 230 (23-300) U/L POC Troponin I 0.01 0.01 (0.01-0.04) ng/ml Imaging Data CT scan - chest: Attestation: I have reviewed the pertinent imaging results. Radiologist's impression: IMPRESSION: 1. No evidence of pulmonary embolus. 2. Bibasilar atelectasis, right greater than left. 3. Small volume pneumoperitoneum is thought to represent sequela of recent cholecystectomy. No bowel obstruction or focal inflammatory change of the GI tract. 4. Mild heterogeneity about the gallbladder fossa is also likely postoperative in nature. No suspicious fluid collection or biliary ductal dilatation. CT scan - abdomen: Attestation: I have reviewed the pertinent imaging results. Radiologist's impression: IMPRESSION: 1. No evidence of pulmonary embolus. 2. Bibasilar atelectasis, right greater than left. 3. Small volume pneumoperitoneum is thought to represent sequela of recent cholecystectomy. No bowel obstruction or focal inflammatory change of the GI tract. ECG Data Attestation: I personally reviewed and interpreted this ECG as follows: Interpretation: Normal sinus rhythm with first-degree AV block Rate: 69 ND: 220 QRS axis: Normal axis. Q-waves in leads 3, AVF. Right bundle branch block ST segment/T wave: Nonspecific T-wave flattening throughout. No ST segment elevation or depression. QTc: 486 Discharge Plan Discharge Clinical Impression: Chest pain, Abnormal LFTs (liver function tests) Patient Disposition: Home, Self-Care Instructions: Chest Pain (ED) Additional Instructions: So far, the workup for your heart and lungs looks good. No sign of a heart attack. However monitor your symptoms carefully and if you get worse come back to the ER right away. Your blood work for your liver and gallbladder shows that your liver function tests have become mildly abnormal. The cause for this is unclear, but it could be related to a problem with gallstones or problem with your surgery. It is very important for you to get this rechecked by tomorrow. [facility] ([facility] near [facility]) at [address] Solis. We will check you labs at that time and if they remain elevated, will plan on getting an additional imaging test. Call [phone] if you have questions tomorrow about where to go. As we discussed, if you have any worsening pain, trouble breathing, nausea, fever, or any problems, please come back to the ER right away tonight. Prescriptions: No Action metformin 500 mg tablet 500 mg PO BIDWM lisinopril 20 mg tablet 40 mg PO DAILY glipizide 2.5 mg tablet extended release 24hr 2.5 mg PO DAILY rosuvastatin [Crestor] 40 mg tablet 40 mg PO HS metoprolol tartrate 75 mg tablet 75 mg PO BID acetaminophen 500 mg tablet 1,000 mg PO Q6H PRN aspirin 81 mg tablet,delayed release (DR/EC) 81 mg PO DAILY multivitamin [Daily Multi-Vitamin] Tablet 1 tab PO DAILY nitroglycerin 0.4 mg tablet, sublingual 0.4 mg sublingual Q5-15M PRN Rx Instructions: do not exceed 3 doses per episode hydrocodone-acetaminophen 5-325 mg Tablet 1 - 2 tab PO Q6H PRN (Reason: Pain) Qty: 15 0RF Follow Up/Referrals: EARNEST MARINO DO [Primary Care Provider] - Stand Alone Forms: [employer] Info Instructions
[2024-01-11] MEDS: ASPIRIN 81 MG TAB.CHEW 162 MG PO (14:42)
[2024-01-11 14:44] LABS: Basophils Absolute Auto 0.02 K/uL (0.00-0.30); Basophils Percent Auto 0.2 % (0.0-3.0); Eosinophils Absolute Auto 0.16 K/uL (0.00-0.50); Eosinophils Percent Auto 1.9 % (0.0-7.0); Hematocrit 37.9 % (37.0-53.0); Hemoglobin* 12.9 gm/dL (13.5-17.5); Immature Granulocytes Abs Auto 0.04 K/uL (0.00-0.30); Immature Granulocytes Pct Auto 0.5 %; Lymphocytes Percent Auto 10.7 % (20-44); Mean Corpuscular HGB Conc 34 gm/dL (32-36); Mean Corpuscular Hemoglobin 30 pg (26-34); Mean Corpuscular Volume 88 fL (80-100); Monocytes Percent Auto 7.3 % (0.0-11.0); Neutrophils Percent Auto 79.4 % (42.0-72.0); Platelet Count* 207 K/uL (140-440); RDW Coefficient of Variation % 13.7 % (11.5-15.5); Red Blood Count 4.29 m/uL (4.30-5.90)
[2024-01-11 14:49] LABS: Slide Review Reflex No
[2024-01-11 15:02] LABS: Troponin, Point-of-Care* 0.01 ng/ml (0.01-0.04)
[2024-01-11 15:06] LABS: Albumin* 3.3 g/dL (3.3-5.0); Chloride* 101 mmol/L (96-114); Potassium* 3.7 mmol/L (3.6-5.1); Sodium* 137 mmol/L (135-149)
[2024-01-11 15:08] LABS: Anion Gap 6 mEq/L (7-15); Aspartate Amino Transferase* 205 U/L (12-35); Bilirubin Total* 0.6 mg/dL (0.1-1.5); Carbon Dioxide* 30 mmol/L (20-32); Creatinine* 1.9 mg/dL (0.5-1.5); Estimated Glomerular Filt Rate 37 ml/min; Total Protein* 5.9 g/dL (6.0-8.3)
[2024-01-11 15:09] LABS: Alanine Aminotransferase* 80 U/L (4-50); Alkaline Phosphatase* 211 U/L (40-150); Blood Urea Nitrogen* 39 mg/dL (7-30); Calcium* 9.1 mg/dL (8.4-10.6); Glucose* 222 mg/dL (60-115)
[2024-01-11 16:05] LABS: D Dimer Quantitative* 1.34 ug/ml (0.00-0.50)
--- NOTE | 2024-01-11 16:09 | CRLHL7_ITS ---
For Patients: As a result of the 21st Century Cures Act, medical imaging exams and procedure reports are released immediately into your electronic medical record. You may view this report before your referring provider. If you have questions, please contact your health care provider. INDICATIONS: Chest pain. Abdominal pain. TECHNIQUE: CT chest, abdomen and pelvis acquired with 95 cc of Isovue [address] chest was performed per PE protocol. Sagittal, coronal and maximum intensity projection reformatted images submitted for review. COMPARISON: CT chest with contrast 03/16/2023. CT abdomen and pelvis with contrast 01/09/2024. FINDINGS: Chest: No evidence of pulmonary embolus. Aortic atherosclerosis. The thoracic aorta is normal in caliber. Stable heart size with coronary artery calcifications, as before. No pleural or pericardial effusions. No pathologic lymphadenopathy. Soft tissues of the thoracic wall are unremarkable. No pneumothorax. Trace pneumomediastinum likely related to free intraperitoneal gas in the abdomen. Central airways are patent. Bibasilar scarring or atelectasis, right greater than left. Lungs are otherwise clear. Abdomen: No focal liver lesion. Mild splenomegaly, unchanged. No CT evidence of pancreatitis. No adrenal nodule. Subcentimeter renal cysts, unchanged. No urolithiasis or hydronephrosis. Interval cholecystectomy. Mild heterogeneity about the gallbladder fossa. No suspicious fluid collection. No biliary ductal dilatation. No bowel obstruction or acute inflammatory change of the GI tract. There is small volume pneumoperitoneum likely related to recent cholecystectomy. No pathologic lymphadenopathy or free fluid. Atherosclerotic disease. No abdominal aortic aneurysm. Pelvis: Prostatomegaly. Bladder as imaged is unremarkable. The pelvic portions of the GI tract are unremarkable. No pathologic lymphadenopathy or free fluid. Bone windows: Degenerative changes spine and pelvis. No acute or suspicious abnormality. IMPRESSION: 1. No evidence of pulmonary embolus. 2. Bibasilar atelectasis, right greater than left. 3. Small volume pneumoperitoneum is thought to represent sequela of recent cholecystectomy. No bowel obstruction or focal inflammatory change of the GI tract. 4. Mild heterogeneity about the gallbladder fossa is also likely postoperative in nature. No suspicious fluid collection or biliary ductal dilatation. Please note that all CT scans at this facility use dose modulation, iterative reconstruction, and/or weight-based dosing when appropriate to reduce radiation dose to as low as reasonably achievable. Dictated by: Lv Nuñez MD @ 01/11/2024 17:22:26 (Electronically Signed)
[2024-01-11 16:10] LABS: Lipase* 230 U/L (23-300)
[2024-01-11 16:31] LABS: Troponin, Point-of-Care* 0.01 ng/ml (0.01-0.04)
--- NOTE | 2024-01-11 18:00 | PM.GSPN ---
Subjective Subjective Date Seen: 01/11/24 Interval history: Sarbjit presented to the ER today with chest pain which began abruptly at 1p.m. He was discharged home yesterday from laparoscopic cholecystectomy which was done on Monday. He states that he felt great after the procedure and the pain that he was having preoperatively was gone. Again this pain at 1:00 p.m. was somewhat abrupt. Has a history coronary artery disease and because the pain was noted substernal, he did take a nitroglycerin. By the time he arrived here the pain had improved. Currently he states he has no pain. He states that his abdomen is slightly sore, however no significant abdominal pain. He has not had any nausea. No issues eating. He is trying to drink and stay hydrated. Exam Narrative: Exam Narrative: General: No acute distress CV: Regular rate Respiratory: Breathing nonlabored on room air Abdomen: Soft appropriately to postoperative state. Const: Vital Signs, click to edit/add: Vital Signs - 24 hr 01/11/24 13:43 01/11/24 13:56 01/11/24 14:00 Temperature 97.4 F L Pulse Rate 68 69 Pulse Rate [Pulse Oximeter] 66 Respiratory Rate 18 Blood Pressure Blood Pressure [Ri ght Upper Arm] 169/91 H Pulse Oximetry 96 95 96 Oxygen Delivery Me thod Room Air 01/11/24 14:15 01/11/24 14:43 01/11/24 14:45 Temperature Pulse Rate 69 66 66 Pulse Rate [Pulse Oximeter] Respiratory Rate 16 Blood Pressure 138/75 Blood Pressure [Ri ght Upper Arm] Pulse Oximetry 96 95 95 Oxygen Delivery Me thod Room Air 01/11/24 15:00 01/11/24 15:02 01/11/24 15:15 Temperature Pulse Rate 68 67 68 Pulse Rate [Pulse Oximeter] Respiratory Rate Blood Pressure 139/77 Blood Pressure [Ri ght Upper Arm] Pulse Oximetry 94 94 94 Oxygen Delivery Me thod 01/11/24 15:21 01/11/24 15:30 01/11/24 15:43 Temperature Pulse Rate 67 68 68 Pulse Rate [Pulse Oximeter] Respiratory Rate Blood Pressure 134/75 134/73 Blood Pressure [Ri ght Upper Arm] Pulse Oximetry 95 95 95 Oxygen Delivery Me thod 01/11/24 15:45 01/11/24 16:00 01/11/24 16:02 Temperature Pulse Rate 65 63 67 Pulse Rate [Pulse Oximeter] Respiratory Rate Blood Pressure 130/76 Blood Pressure [Ri ght Upper Arm] Pulse Oximetry 95 95 94 Oxygen Delivery Me thod 01/11/24 16:03 01/11/24 16:21 01/11/24 16:22 Temperature Pulse Rate 68 69 70 Pulse Rate [Pulse Oximeter] Respiratory Rate 18 Blood Pressure 158/87 H Blood Pressure [Ri ght Upper Arm] Pulse Oximetry 94 94 Oxygen Delivery Me thod Room Air 01/11/24 16:23 01/11/24 16:41 01/11/24 17:02 Temperature Pulse Rate 67 70 66 Pulse Rate [Pulse Oximeter] Respiratory Rate Blood Pressure Blood Pressure [Ri ght Upper Arm] Pulse Oximetry 95 96 96 Oxygen Delivery Me thod 01/11/24 17:03 Temperature Pulse Rate 67 Pulse Rate [Pulse Oximeter] Respiratory Rate 18 Blood Pressure 132/80 Blood Pressure [Ri ght Upper Arm] Pulse Oximetry 96 Oxygen Delivery Me thod Room Air Labs/Imaging Labs Labs: White blood cell count today in the ER is normal. This is down from 13 yesterday Hemoglobin is 12.9. Creatinine is up slightly today at 1.9. BUN is 39. LFTs yesterday prior to discharge were normal. Today total bilirubin is 0.6. AST is 205. ALT is 80. Alkaline phosphatase is 211. Imaging Imaging: CT scan of the abdomen pelvis done today: IMPRESSION: 1. No evidence of pulmonary embolus. 2. Bibasilar atelectasis, right greater than left. 3. Small volume pneumoperitoneum is thought to represent sequela of recent cholecystectomy. No bowel obstruction or focal inflammatory change of the GI tract. 4. Mild heterogeneity about the gallbladder fossa is also likely postoperative in nature. No suspicious fluid collection or biliary ductal dilatation. Please note that all CT scans at this facility use dose modulation, iterative reconstruction, and/or weight-based dosing when appropriate to reduce radiation dose to as low as reasonably achievable. Dictated by: Lv Nuñez MD @ 01/11/2024 17:22:26 Progress Note:A&P Assessment and plan (1) Abnormal LFTs (liver function tests): Status: Acute (2) Chest pain: Status: Acute (3) S/P laparoscopic cholecystectomy: Status: Acute Plan The patient is a 73-year-old male who is postop day 2 status post laparoscopic cholecystectomy. He developed substernal chest pain earlier today which has now resolved. LFTs are mildly elevated today but not exactly in an obstructive pattern though alkaline phosphatase is mildly elevated. Because cardiac workup has been negative and troponins are negative. As long as he is safe from a cardiac standpoint to discharge home I think it is reasonable to discharge him home with planned follow-up labs tomorrow. He will come and see me in clinic tomorrow morning at [facility]. We will recheck labs at that time. If they remain elevated then we will consider MRCP. The patient is agreeable with that plan.
== END 2024-01-11 18:07 | disposition home or self-care (01) ==
PROVIDERS: Emergency Provider Emergency Medicine; PCP Student in an Organized Health Care Education/Training Program
DX: R07.9 Chest pain, unspecified (principal); R94.5 Abnormal results of liver function studies
CPT/HCPCS: 36415; 71275; 74177; 80053; 83690; 84484; 85025; 85379; 93005; 99284; 99285; A9270; Q9967

== ENCOUNTER 2024-01-12 09:04 | Outpatient (CLI) | payer MEDICARE, SELFPAY | END 2024-01-12 09:05 | disposition home or self-care (01) | PROVIDERS: PCP Student in an Organized Health Care Education/Training Program; Visit Provider Surgery | DX: R79.89 Other specified abnormal findings of blood chemistry (principal) | CPT/HCPCS: 80076; 83690 ==

== ENCOUNTER 2024-01-17 13:16 | Outpatient (CLI) | payer MEDICARE, SELFPAY ==
--- NOTE | 2024-01-17 14:30 | CRLHL7_ITS ---
For Patients: As a result of the Century Cures Act, medical imaging exams and procedure reports are released immediately into your electronic medical record. You may view this report before your referring provider. If you have questions, please contact your health care provider. INDICATION: Elevated LFT COMPARISON: CT abdomen pelvis 01/11/2024 in 01/09/2024 TECHNIQUE: Multiplanar, multisequence MR imaging of the abdomen, without IV contrast. The MRCP protocol was utilized, including 3D reconstructed images of the biliary tree. Contrast: None FINDINGS: Mild diffuse hepatic steatosis. The liver is enlarged or cirrhotic. No focal liver lesions identified. Normal noncontrast appearance of the hepatic vasculature. Cholecystectomy. No fluid or collection in the gallbladder fossa. Very minimal edema consistent with a recent surgery. No intrahepatic biliary ductal dilatation. No extrahepatic biliary ductal dilatation. Conventional pancreaticobiliary junction anatomy. No choledocholithiasis or extrinsic mass effect. No ampullary mass. Normal intrinsic signal intensity of the pancreas. The pancreatic duct is not dilated. No peripancreatic fluid or edema. Spleen size is upper limits of normal, 13 centimeters. Homogeneous splenic parenchyma. Normal adrenal glands. Multiple T2 hyperintense renal lesions are most consistent with cysts on this noncontrast exam. No urinary tract dilatation. No ascites. No adenopathy. No dilated or inflamed bowel in a field of view. IMPRESSION: 1. Mild diffuse hepatic steatosis. 2. Borderline splenomegaly. 3. Recent cholecystectomy. Normal appearance of the biliary tree. Dictated by Komal Humphreys MD @ 01/18/2024 10:29:01 AM (Electronically Signed)
== END 2024-01-17 13:17 | disposition home or self-care (01) ==
PROVIDERS: PCP Student in an Organized Health Care Education/Training Program; Visit Provider Surgery
DX: R79.89 Other specified abnormal findings of blood chemistry (principal); K76.0 Fatty (change of) liver, not elsewhere classified
CPT/HCPCS: 74181

== ENCOUNTER 2024-01-25 06:55 | Emergency (ER) | payer MEDICARE, SELFPAY ==
[2024-01-25] VITALS (34 sets, daily range): BP systolic 116–148; BP diastolic 70–89; PULSE 68–82; RESP 16–18; TEMP 36.7–36.9; O2SAT 94–98; BMI 24.3
--- NOTE | 2024-01-25 07:19 | CRLHL7_ITS ---
For Patients: As a result of the Century Cures Act, medical imaging exams and procedure reports are released immediately into your electronic medical record. You may view this report before your referring provider. If you have questions, please contact your health care provider. INDICATION: Chest pain, not otherwise described. COMPARISON: 01/09/2024 and 03/13/2023 TECHNIQUE: 2 views. FINDINGS: Medical Devices: None. Lung Volumes: Adequate inspiration. No significant atelectasis. Lungs: Unchanged left basilar thin uniform linear opacities consistent with nonspecific minor fibrosis. Otherwise clear lungs. Pleura and Pleural spaces: No significant pleural effusion. No pneumothorax. Mediastinum: Stable cardiomediastinal silhouette. Atherosclerotic coronary artery calcification or metallic coronary stent and atherosclerotic mural calcification of the thoracic aortic arch are again noted. Bony Thorax and Soft Tissues: No significant interval findings. Median sternotomy. IMPRESSION: No findings to explain the clinical history. Incidental findings described in the body of the report. Dictated by Ezequiel Hernandez MD @ 01/25/2024 8:04:46 AM (Electronically Signed)
[2024-01-25 07:28] LABS: Basophils Absolute Auto 0.02 K/uL (0.00-0.30); Basophils Percent Auto 0.2 % (0.0-3.0); Eosinophils Absolute Auto 0.33 K/uL (0.00-0.50); Eosinophils Percent Auto 4.1 % (0.0-7.0); Hematocrit 39.9 % (37.0-53.0); Hemoglobin* 13.5 gm/dL (13.5-17.5); Immature Granulocytes Abs Auto 0.03 K/uL (0.00-0.30); Immature Granulocytes Pct Auto 0.4 %; Lymphocytes Percent Auto 12.8 % (20-44); Mean Corpuscular HGB Conc 34 gm/dL (32-36); Mean Corpuscular Hemoglobin 30 pg (26-34); Mean Corpuscular Volume 87 fL (80-100); Monocytes Percent Auto 11.7 % (0.0-11.0); Neutrophils Absolute Auto 5.68 K/uL (1.7-7.0); Neutrophils Percent Auto 70.8 % (42.0-72.0); Platelet Count* 291 K/uL (140-440); RDW Coefficient of Variation % 13.1 % (11.5-15.5); Red Blood Count 4.57 m/uL (4.30-5.90); White Blood Count* 8.03 K/uL (4.50-11.00)
[2024-01-25 07:29] LABS: Slide Review Reflex No; Troponin, Point-of-Care* 0.01 ng/ml (0.01-0.04)
--- NOTE | 2024-01-25 07:33 | ED.GENADULT ---
HPI - General Adult General Chief complaint: Chest Pain <Isaura Rivera MD - Last Filed: 01/30/24 00:07> Stated complaint: Chest pain - took Nitro <Isaura Rivrea MD - Last Filed: 01/30/24 00:07> Time Seen by Provider: 01/25/24 07:18 <Isaura Rivera MD - Last Filed: 01/30/24 00:07> Source: patient <Isaura Rivera MD - Last Filed: 01/30/24 00:07> Mode of arrival: ambulatory <Isaura Rivera MD - Last Filed: 01/30/24 00:07> Limitations: no limitations <Isaura Rivera MD - Last Filed: 01/30/24 00:07> History of Present Illness HPI narrative: 73-year-old male presents the emergency department after an episode of epigastric/lower chest pain while at work this morning. He has only recently returned to work after he had acute cholecystitis on January 08. Underwent an uncomplicated cholecystectomy. Notes reviewed. He is to have follow-up for labs next week due to concern for possible retained stone but there were no clear indications that he was having obstruction. Patient had an episode similar to this 2 days postop and was evaluated in the emergency department, workup was found to be negative. He had taken his nitroglycerin at that time as well with relief. This morning symptoms started around 6 or 615 at the latest. Epigastric area pain, did not radiate. Was not accompanied by shortness of breath or any other symptoms. No trauma or injury. He took nitroglycerin and his symptoms did improve fairly quickly from a 10 to a 2. [place] a little dizzy from the nitroglycerin and presents to the emergency department. He does have a history of significant coronary artery disease, triple bypass surgery at think he said it was 12 years ago and he had stents 3 years ago but has not had an angiogram, stress test or any other evaluation of the coronary artery stents. He said that he saw his primary care doctor last Monday and because his blood pressure had been persistently elevated, his metoprolol was switched, it looks like it was switched to Coreg. This is a good choice. He isn't having any side effects or other abnormalities as a result. He is not having any fever, bowels are moving well,. He had an episode of nausea and vomiting Monday, thought to be gastroenteritis by the surgeon who evaluated him the next day. Those symptoms have cleared with no complication. No shortness of breath, productive cough or other abnormality Past medical history most notable for coronary artery disease. He also has diabetes, hypertension. Medications seem accurate as listed. Including the new updated Coreg. Former smoker, not currently smoking. ROS notable for that chest/epigastric symptoms as above only, otherwise denies times 12 systems. <Isaura Rivera MD - Last Filed: 01/30/24 00:07> Related Data Home medications: Home Medications ?Medication ?Instructions ?Recorded ?Confirmed lisinopril 20 mg tablet 40 mg PO DAILY 03/13/23 01/25/24 metformin 500 mg tablet 500 mg PO BIDWM 03/13/23 01/25/24 metoprolol tartrate 75 mg tablet 75 mg PO BID 10/15/23 01/12/24 glipizide 2.5 mg tablet, extended 2.5 mg PO DAILY 10/30/23 01/25/24 release 24 hr rosuvastatin 40 mg tablet (Crestor) 40 mg PO HS 10/30/23 01/25/24 acetaminophen 500 mg tablet 1,000 mg PO Q6H PRN 01/09/24 01/25/24 aspirin 81 mg tablet,delayed 81 mg PO DAILY 01/09/24 01/25/24 release multivitamin (Daily Multi-Vitamin 1 tab PO DAILY 01/09/24 01/25/24 tablet) nitroglycerin 0.4 mg sublingual 0.4 mg sublingual Q5-15M PRN 01/09/24 01/25/24 tablet carvedilol 6.25 mg tablet 6.25 mg PO BID 01/25/24 01/25/24 Previous Rx's ?Medication ?Instructions ?Recorded hydrocodone 5 mg-acetaminophen 325 1 - 2 tab PO Q6H PRN Pain #15 tabs 01/10/24 mg tablet pantoprazole 20 mg tablet,delayed 20 mg PO DAILY #30 tabs 01/25/24 release (Protonix) <Isaura Rivera MD - Last Filed: 01/30/24 00:07> Allergies/adverse reactions: Allergies Allergy/AdvReac Type Severity Reaction Status Date / Time amlodipine Allergy edema Verified 01/25/24 07:18 isosorbide (From Imdur) Allergy intolerance Verified 01/25/24 07:18 tamsulosin (From Flomax) Allergy Dizziness Verified 01/25/24 07:18 <Isaura Rivera MD - Last Filed: 01/30/24 00:07> [facility] Medical History: Medical History Dyslipidemia ?E78.5 - Hyperlipidemia, unspecified (ICD-10) ASCVD (arteriosclerotic cardiovascular disease) ?I25.10 - Atherosclerotic heart disease of [place] coronary artery without angina pectoris (ICD-10) Adenomatous colon polyp ?D12.6 - Benign neoplasm of colon, unspecified (ICD-10) Hypertension ?I10 - Essential (primary) hypertension (ICD-10) Type 2 diabetes mellitus ?E11.9 - Type 2 diabetes mellitus without complications (ICD-10) WARD (dyspnea on exertion) ?R06.09 - Other forms of dyspnea (ICD-10) Stage 3a chronic kidney disease ?N18.31 - Chronic kidney disease, stage 3a (ICD-10) Chronic bronchitis ?J42 - Unspecified chronic bronchitis (ICD-10) Depression ?F32.A - Depression, unspecified (ICD-10) History of coronary angiogram ?Z98.890 - Other specified postprocedural states (ICD-10) <Isaura Rivera MD - Last Filed: 01/30/24 00:07> Surgical History: Surgical History S/P left inguinal hernia repair ?Z98.890 - Other specified postprocedural states (ICD-10) ?Z87.19 - Personal history of other diseases of the digestive system (ICD-10) S/P insertion of non-drug eluting coronary artery stent ?Z95.5 - Presence of coronary angioplasty implant and graft (ICD-10) History of esophagogastroduodenoscopy (EGD) ?Z98.890 - Other specified postprocedural states (ICD-10) History of colonoscopy ?Z98.890 - Other specified postprocedural states (ICD-10) History of coronary artery bypass graft ?Z95.1 - Presence of aortocoronary bypass graft (ICD-10) History of angioplasty ?Z98.62 - Peripheral vascular angioplasty status (ICD-10) <Isaura Rivera MD - Last Filed: 01/30/24 00:07> Social History: Social History What is your current living situation?: unable to answer Problems where you live: unable to answer Problems where you live details: NA In the past 12 months, utilities in danger of being shut off: unable to answer In past 12 months, lack of transportation kept you from medical appts, meetings, work, or getting things needed for daily living: unable to answer In the past 12 mos, have been you worried that your food would run out before you had money to buy more?: unable to answer In the past 12 mos, the food you bought just didn't last and you didn't have money to buy more?: unable to answer Highest level of school completed/degree received: some college, no degree Smoking Status: Never smoker Do you use any of these nicotine containing products: None Second hand tobacco smoke exposure: No How often do you have a drink containing alcohol: never AUDIT-C Alcohol total score: 0 Non-prescribed substance use: denies use Caffeine: Yes (some pop) How often does anyone, including family, friends and others, physically hurt you: unable to answer How often does anyone, including family, friends and others, insult or talk down to you: unable to answer How often does anyone, including family, friends and others, threaten you with harm: unable to answer How often does anyone, including family, friends and others, scream or curse at you: unable to answer service: Yes <Isaura Rivera MD - Last Filed: 01/30/24 00:07> Exam Const: Vital Signs, click to edit/add: Vital Signs - 24 hr 01/25/24 07:11 01/25/24 07:12 01/25/24 07:13 Temperature 98.5 F Pulse Rate 75 76 Pulse Rate [Pulse Oximeter] 74 Respiratory Rate 16 Blood Pressure 130/78 Blood Pressure [Le ft Upper Arm] 130/78 Pulse Oximetry 97 95 97 Oxygen Delivery Me thod Room Air 01/25/24 07:15 01/25/24 07:30 01/25/24 07:32 Temperature Pulse Rate 75 73 76 Pulse Rate [Pulse Oximeter] Respiratory Rate Blood Pressure 121/72 Blood Pressure [Le ft Upper Arm] Pulse Oximetry 96 96 97 Oxygen Delivery Me thod 01/25/24 07:51 01/25/24 08:00 01/25/24 08:02 Temperature Pulse Rate 73 74 75 Pulse Rate [Pulse Oximeter] Respiratory Rate Blood Pressure 119/70 Blood Pressure [Le ft Upper Arm] Pulse Oximetry 96 94 94 Oxygen Delivery Me thod 01/25/24 08:15 01/25/24 08:30 01/25/24 08:32 Temperature Pulse Rate 74 75 75 Pulse Rate [Pulse Oximeter] Respiratory Rate Blood Pressure 116/70 Blood Pressure [Le ft Upper Arm] Pulse Oximetry 94 95 95 Oxygen Delivery Me thod 01/25/24 08:45 01/25/24 09:00 01/25/24 09:02 Temperature Pulse Rate 75 72 74 Pulse Rate [Pulse Oximeter] Respiratory Rate Blood Pressure 128/74 Blood Pressure [Le ft Upper Arm] Pulse Oximetry 95 97 94 Oxygen Delivery Me thod 01/25/24 09:15 01/25/24 09:30 01/25/24 09:32 Temperature Pulse Rate 72 82 72 Pulse Rate [Pulse Oximeter] Respiratory Rate Blood Pressure 141/82 H Blood Pressure [Le ft Upper Arm] Pulse Oximetry 94 97 96 Oxygen Delivery Me thod 01/25/24 09:45 01/25/24 10:00 01/25/24 10:01 Temperature Pulse Rate 75 77 68 Pulse Rate [Pulse Oximeter] Respiratory Rate Blood Pressure 136/85 Blood Pressure [Le ft Upper Arm] Pulse Oximetry 95 96 98 Oxygen Delivery Me thod 01/25/24 10:15 01/25/24 10:30 01/25/24 10:32 Temperature Pulse Rate 74 75 76 Pulse Rate [Pulse Oximeter] Respiratory Rate Blood Pressure 141/87 H Blood Pressure [Le ft Upper Arm] Pulse Oximetry 97 98 97 Oxygen Delivery Me thod 01/25/24 10:48 01/25/24 11:00 01/25/24 11:02 Temperature Pulse Rate 74 73 70 Pulse Rate [Pulse Oximeter] Respiratory Rate Blood Pressure 144/86 H Blood Pressure [Le ft Upper Arm] Pulse Oximetry 96 98 98 Oxygen Delivery Me thod 01/25/24 11:15 01/25/24 11:30 01/25/24 11:32 Temperature Pulse Rate 68 72 69 Pulse Rate [Pulse Oximeter] Respiratory Rate Blood Pressure 141/89 H Blood Pressure [Le ft Upper Arm] Pulse Oximetry 97 96 96 Oxygen Delivery Me thod 01/25/24 11:45 01/25/24 12:00 01/25/24 12:00 Temperature 98.1 F Pulse Rate 70 75 Pulse Rate [Pulse Oximeter] Respiratory Rate 18 Blood Pressure Blood Pressure [Le ft Upper Arm] Pulse Oximetry 95 97 Oxygen Delivery Me thod <Isaura Rivera MD - Last Filed: 01/30/24 00:07> Vital Signs, click to edit/add: Vital Signs - 24 hr 01/25/24 07:11 01/25/24 07:12 01/25/24 07:13 Temperature 98.5 F Pulse Rate 75 76 Pulse Rate [Pulse Oximeter] 74 Respiratory Rate 16 Blood Pressure 130/78 Blood Pressure [Le ft Upper Arm] 130/78 Pulse Oximetry 97 95 97 Oxygen Delivery Me thod Room Air 01/25/24 07:15 01/25/24 07:30 01/25/24 07:32 Temperature Pulse Rate 75 73 76 Pulse Rate [Pulse Oximeter] Respiratory Rate Blood Pressure 121/72 Blood Pressure [Le ft Upper Arm] Pulse Oximetry 96 96 97 Oxygen Delivery Me thod 01/25/24 07:51 01/25/24 08:00 01/25/24 08:02 Temperature Pulse Rate 73 74 75 Pulse Rate [Pulse Oximeter] Respiratory Rate Blood Pressure 119/70 Blood Pressure [Le ft Upper Arm] Pulse Oximetry 96 94 94 Oxygen Delivery Me thod 01/25/24 08:15 01/25/24 08:30 01/25/24 08:32 Temperature Pulse Rate 74 75 75 Pulse Rate [Pulse Oximeter] Respiratory Rate Blood Pressure 116/70 Blood Pressure [Le ft Upper Arm] Pulse Oximetry 94 95 95 Oxygen Delivery Me thod 01/25/24 08:45 01/25/24 09:00 01/25/24 09:02 Temperature Pulse Rate 75 72 74 Pulse Rate [Pulse Oximeter] Respiratory Rate Blood Pressure 128/74 Blood Pressure [Le ft Upper Arm] Pulse Oximetry 95 97 94 Oxygen Delivery Me thod 01/25/24 09:15 01/25/24 09:30 01/25/24 09:32 Temperature Pulse Rate 72 82 72 Pulse Rate [Pulse Oximeter] Respiratory Rate Blood Pressure 141/82 H Blood Pressure [Le ft Upper Arm] Pulse Oximetry 94 97 96 Oxygen Delivery Me thod 01/25/24 09:45 01/25/24 10:00 01/25/24 10:01 Temperature Pulse Rate 75 77 68 Pulse Rate [Pulse Oximeter] Respiratory Rate Blood Pressure 136/85 Blood Pressure [Le ft Upper Arm] Pulse Oximetry 95 96 98 Oxygen Delivery Me thod 01/25/24 10:15 01/25/24 10:30 01/25/24 10:32 Temperature Pulse Rate 74 75 76 Pulse Rate [Pulse Oximeter] Respiratory Rate Blood Pressure 141/87 H Blood Pressure [Le ft Upper Arm] Pulse Oximetry 97 98 97 Oxygen Delivery Me thod 01/25/24 10:48 01/25/24 11:00 01/25/24 11:02 Temperature Pulse Rate 74 73 70 Pulse Rate [Pulse Oximeter] Respiratory Rate Blood Pressure 144/86 H Blood Pressure [Le ft Upper Arm] Pulse Oximetry 96 98 98 Oxygen Delivery Me thod 01/25/24 11:15 01/25/24 11:30 01/25/24 11:32 Temperature Pulse Rate 68 72 69 Pulse Rate [Pulse Oximeter] Respiratory Rate Blood Pressure 141/89 H Blood Pressure [Le ft Upper Arm] Pulse Oximetry 97 96 96 Oxygen Delivery Me thod 01/25/24 11:45 01/25/24 12:00 01/25/24 12:00 Temperature 98.1 F Pulse Rate 70 75 Pulse Rate [Pulse Oximeter] Respiratory Rate 18 Blood Pressure Blood Pressure [Le ft Upper Arm] Pulse Oximetry 95 97 Oxygen Delivery Me thod <Vikash Mallory MD - Last Filed: 01/25/24 12:18> Documenting provider has reviewed patient's vital signs: yes <Isaura Rivera MD - Last Filed: 01/30/24 00:07> Common normals: no apparent distress and alert <Isaura Rivera MD - Last Filed: 01/30/24 00:07> General appearance: cooperative, comfortable and well kempt <Isauar Rivera MD - Last Filed: 01/30/24 00:07> HENMT: Common normals: normocephalic and head/scalp atraumatic <MD Yue Dupont Last Filed: 01/30/24 00:07> Head and scalp: normocephalic and atraumatic <MD Yue Dupont Last Filed: 01/30/24 00:07> Mouth: oral and palatal mucosa normal <MD Yue Dupont Last Filed: 01/30/24 00:07> Throat: posterior oropharynx normal <MD Yue Dupont Last Filed: 01/30/24 00:07> Eye: Common normals: conjunctivae normal <MD Yue Dupont Last Filed: 01/30/24 00:07> General eye: normal appearance of both eyes <MD Yue Dupont Last Filed: 01/30/24 00:07> Conjunctiva: conjunctiva(e) normal <MD Yue Dupont Last Filed: 01/30/24 00:07> Neck & C-Spine: Common normals: full ROM and no lymphadenopathy <MD Yue Dupont Last Filed: 01/30/24 00:07> Resp: Common normals: normal respiratory effort, no use of accessory muscles and clear to auscultation bilaterally <MD Yue Dupont Last Filed: 01/30/24 00:07> Effort & inspection: able to speak in complete sentences <MD Yue Dupont Last Filed: 01/30/24 00:07> Auscultation: clear to auscultation bilaterally <MD Yue Dupont Last Filed: 01/30/24 00:07> Cardio: Common normals: regular rate, regular rhythm, S1 normal heart sound, S2 normal heart sound and no murmurs <MD Yue Dupont Last Filed: 01/30/24 00:07> Rate: regular rate <MD Yue Dupont Last Filed: 01/30/24 00:07> Rhythm: regular rhythm <MD Yue Dupont Last Filed: 01/30/24 00:07> Heart sounds: S1 normal and S2 normal <MD Yue Dupont Last Filed: 01/30/24 00:07> GI: Common normals: Normal to inspection, nondistended, normoactive bowel sounds present, soft to palpation, non-tender, no hepatosplenomegaly and no masses <MD Yue Dupont Last Filed: 01/30/24 00:07> Palpation: soft and no hepatosplenomegaly <MD Yue Dupont Last Filed: 01/30/24 00:07> Other: Surgical incision sites look great. No redness, no drainage. <MD Yue Dupont Last Filed: 01/30/24 00:07> Back & Pelvis: Common normals: thoracic and lumbar spine normal to inspection <MD Yue Dupont Last Filed: 01/30/24 00:07> Extremity: Common normals: normal to inspection, full ROM, normal capillary refill and no pedal edema <MD Yue Dupont Last Filed: 01/30/24 00:07> Neuro: Sensorium/orientation: alert <MD Yue Dupont Last Filed: 01/30/24 00:07> Speech: speech normal <MD Yue uDpont Last Filed: 01/30/24 00:07> Gait (neuro): normal gait <MD Yue Dupont Last Filed: 01/30/24 00:07> Motor exam: no movement abnormalities noted <MD Yue Dupont Last Filed: 01/30/24 00:07> Psych: Appearance: well kempt <MD Yue Dupont Last Filed: 01/30/24 00:07> Attitude: engaged <MD Yue Dupont Last Filed: 01/30/24 00:07> Activity/motor behavior: appropriate eye contact <MD Yue Dupont Last Filed: 01/30/24 00:07> Insight: insight good <MD Yue Dupont Last Filed: 01/30/24 00:07> Judgement: judgment good <Isaura Rivera MD - Last Filed: 01/30/24 00:07> Skin: Common normals: no rashes or lesions noted <Isaura Rivera MD - Last Filed: 01/30/24 00:07> General skin exam: no rashes or lesions noted <Isaura Rivera MD - Last Filed: 01/30/24 00:07> Course Course ED Course: 73-year-old male with an episode of nitroglycerin responsive chest/epigastric pain. History of significant coronary artery disease with no recent coronary artery imaging. Differential diagnosis includes acute coronary syndrome, stable angina, GERD, postop complication, pneumonia, soft gel spasm, musculoskeletal etiology, gastritis, colitis, amongst others. Most potentially life-threatening is acute coronary syndrome. Patient had a similar episode just under 2 weeks ago as well. Will place a peripheral IV, typical cardiac plus GI labs due to recent cholecystectomy. Will also obtain EKG and placed on equipment monitor phototypesetting. Patient will let us know if his chest pain returns. Will need repeat troponin in 2 hours which will be 3 hours from onset. I think it would be a good idea to consult with Cardiology after that 2nd troponin since he has had 2 episodes that have been responsive to nitroglycerin. I would have a low threshold for recommending repeat angiogram. He tells me that he has taken his morning medications, will hold off on additional aspirin or other interventions for now. Will hand over care to incoming day shift partner. <Isaura Rivera MD - Last Filed: 01/30/24 00:07> Vital Signs Vital signs: Initial Vital Signs Pulse Rate 75 01/25/24 07:11 Blood Pressure 130/78 01/25/24 07:11 Blood Pressure Mean 95 01/25/24 07:11 Pulse Oximetry 97 01/25/24 07:11 Vital Signs Pulse Rate 75 01/25/24 07:11 Blood Pressure 130/78 01/25/24 07:11 Pulse Oximetry 97 01/25/24 07:11 Temperature 98.1 F 01/25/24 12:00 Pulse Rate 72 01/25/24 12:15 Respiratory Rate 18 01/25/24 12:00 Blood Pressure 148/87 H 01/25/24 12:02 Pulse Oximetry 98 01/25/24 12:15 Oxygen Delivery Method Room Air 01/25/24 07:13 <Isaura Rivera MD - Last Filed: 01/30/24 00:07> Initial Vital Signs Pulse Rate 75 01/25/24 07:11 Blood Pressure 130/78 01/25/24 07:11 Blood Pressure Mean 95 01/25/24 07:11 Pulse Oximetry 97 01/25/24 07:11 Vital Signs Pulse Rate 75 01/25/24 07:11 Blood Pressure 130/78 01/25/24 07:11 Pulse Oximetry 97 01/25/24 07:11 Temperature 98.1 F 01/25/24 12:00 Pulse Rate 72 01/25/24 12:15 Respiratory Rate 18 01/25/24 12:00 Blood Pressure 148/87 H 01/25/24 12:02 Pulse Oximetry 98 01/25/24 12:15 Oxygen Delivery Method Room Air 01/25/24 07:13 <Vikash Mallory MD - Last Filed: 01/25/24 12:18> Medications Administered Medications: Discontinued Medications Generic Name Dose Route Start Last Admin Trade Name Freq PRN Reason Stop Dose Admin Sodium Chloride 500 mls @ 500 mls/hr 01/25/24 10:17 01/25/24 11:58 0.9 % Sodium Chloride 500 Ml IV 01/25/24 11:16 Infused .Q1H ONE Infusion <Isaura Rivera MD - Last Filed: 01/30/24 00:07> Discontinued Medications Generic Name Dose Route Start Last Admin Trade Name Freq PRN Reason Stop Dose Admin Sodium Chloride 500 mls @ 500 mls/hr 01/25/24 10:17 01/25/24 11:58 0.9 % Sodium Chloride 500 Ml IV 01/25/24 11:16 Infused .Q1H ONE Infusion <Vikash Mallory MD - Last Filed: 01/25/24 12:18> Medical Decision Making MDM Narrative Medical decision making narrative: Care for this patient was transferred to [place] at the end of Dr. Rivera's a shift. A repeat troponin has returned in normal range. I did speak with a aboriginal education teacher on-call at [facility] who recommended further workup of his abdomen seeing that he had a cholecystectomy about 3 weeks ago. The patient does have an ALT level that has increased since the surgery. I did check a lactate level and this returns normal. His lipase however is somewhat elevated at around 500. CT imaging of his abdomen and pelvis was obtained also and this returns with no acute findings. I did speak with Dr. Mathis, surgeon on-call, who reviewed these results also. The patient did have an MRI about a week after his surgery and there was no evidence of stones downstream from the gallbladder. The patient is okay to be discharged home and does have a follow-up for repeat recheck of his labs next week. He is also encouraged to follow up with cardiology clinic for recheck of his coronary artery disease. His symptoms do not seem to be exertional or related to his heart. He did receive a prescription for Protonix. <Vikash Mallory MD - Last Filed: 01/25/24 12:18> Lab Data Lab results reviewed: Yes I reviewed the patient's lab results <Isaura Rivera MD - Last Filed: 01/30/24 00:07> Lab results narrative: LFTs still elevated, and ALT is actually increasing. Will need to consult with General surgery regarding clinical significance. <Isaura Rivera MD - Last Filed: 01/30/24 00:07> Labs: Lab Results 01/25/24 01/25/24 01/25/24 Range/Units 07:12 09:24 10:26 WBC 8.03 (4.50-11.00) K/uL RBC 4.57 (4.30-5.90) m/uL Hgb 13.5 (13.5-17.5) gm/dL Hct 39.9 (37.0-53.0) % MCV 87 (80-100) fL MCH 30 (26-34) pg MCHC 34 (32-36) gm/dL RDW Coeff of [place] 13.1 (11.5-15.5) % Plt Count 291 (140-440) K/uL Neut % (Auto) 70.8 (42.0-72.0) % Lymph % (Auto) 12.8 L (20-44) % [place] % (Auto) 11.7 H (0.0-11.0) % Eos % (Auto) 4.1 (0.0-7.0) % Baso % (Auto) 0.2 (0.0-3.0) % Neut # (Auto) 5.68 (1.7-7.0) K/uL Lymph # (Auto) 1.00 (0.90-2.90) K/uL [place] # (Auto) 0.90 (0.00-0.90) K/UL Eos # (Auto) 0.33 (0.00-0.50) K/uL Baso # (Auto) 0.02 (0.00-0.30) K/uL Abs Immat Gran (auto) 0.03 (0.00-0.30) K/uL Imm/Tot Granulo (auto) 0.4 % Sodium 135 (135-149) mmol/L Potassium 3.6 (3.6-5.1) mmol/L Chloride 99 (96-114) mmol/L Carbon Dioxide 28 (20-32) mmol/L Anion Gap 8 (7-15) mEq/L BUN 21 (7-30) mg/dL Creatinine 1.9 H (0.5-1.5) mg/dL Estimated Creat Clear 33.00 Estimated GFR 37 ml/min Glucose 237 H (60-115) mg/dL Lactate 1.6 (0.5-1.9) mmol/L Calcium 9.4 (8.4-10.6) mg/dL Total Bilirubin 1.4 (0.1-1.5) mg/dL AST 36 H (12-35) U/L ALT 167 H (4-50) U/L Alkaline Phosphatase 248 H (40-150) U/L Troponin I < 0.01 L (0.01-0.04) ng/mL C-Reactive Protein 2.6 H (0.5-1.0) mg/dL NT-Pro-B Natriuret Pep 681 pg/mL Total Protein 6.7 (6.0-8.3) g/dL Albumin 4.0 (3.3-5.0) g/dL Lipase 522 H (23-300) U/L POC Troponin I 0.01 0.01 (0.01-0.04) ng/ml <Isaura Rivera MD - Last Filed: 01/30/24 00:07> Lab Results 01/25/24 01/25/24 01/25/24 Range/Units 07:12 09:24 10:26 WBC 8.03 (4.50-11.00) K/uL RBC 4.57 (4.30-5.90) m/uL Hgb 13.5 (13.5-17.5) gm/dL Hct 39.9 (37.0-53.0) % MCV 87 (80-100) fL MCH 30 (26-34) pg MCHC 34 (32-36) gm/dL RDW Coeff of [place] 13.1 (11.5-15.5) % Plt Count 291 (140-440) K/uL Neut % (Auto) 70.8 (42.0-72.0) % Lymph % (Auto) 12.8 L (20-44) % [place] % (Auto) 11.7 H (0.0-11.0) % Eos % (Auto) 4.1 (0.0-7.0) % Baso % (Auto) 0.2 (0.0-3.0) % Neut # (Auto) 5.68 (1.7-7.0) K/uL Lymph # (Auto) 1.00 (0.90-2.90) K/uL [place] # (Auto) 0.90 (0.00-0.90) K/UL Eos # (Auto) 0.33 (0.00-0.50) K/uL Baso # (Auto) 0.02 (0.00-0.30) K/uL Abs Immat Gran (auto) 0.03 (0.00-0.30) K/uL Imm/Tot Granulo (auto) 0.4 % Sodium 135 (135-149) mmol/L Potassium 3.6 (3.6-5.1) mmol/L Chloride 99 (96-114) mmol/L Carbon Dioxide 28 (20-32) mmol/L Anion Gap 8 (7-15) mEq/L BUN 21 (7-30) mg/dL Creatinine 1.9 H (0.5-1.5) mg/dL Estimated Creat Clear 33.00 Estimated GFR 37 ml/min Glucose 237 H (60-115) mg/dL Lactate 1.6 (0.5-1.9) mmol/L Calcium 9.4 (8.4-10.6) mg/dL Total Bilirubin 1.4 (0.1-1.5) mg/dL AST 36 H (12-35) U/L ALT 167 H (4-50) U/L Alkaline Phosphatase 248 H (40-150) U/L Troponin I < 0.01 L (0.01-0.04) ng/mL C-Reactive Protein 2.6 H (0.5-1.0) mg/dL NT-Pro-B Natriuret Pep 681 pg/mL Total Protein 6.7 (6.0-8.3) g/dL Albumin 4.0 (3.3-5.0) g/dL Lipase 522 H (23-300) U/L POC Troponin I 0.01 0.01 (0.01-0.04) ng/ml <Vikash Mallory MD - Last Filed: 01/25/24 12:18> Imaging Data Chest x-ray: Attestation: I have reviewed the pertinent imaging results. <Isaura Rivera MD - Last Filed: 01/30/24 00:07> My impression: Sternotomy but no pleural effusions, consolidations or obvious air underneath the diaphragm. <Isaura Rivera MD - Last Filed: 01/30/24 00:07> Radiologist's impression: FINDINGS: Medical Devices: None. Lung Volumes: Adequate inspiration. No significant atelectasis. Lungs: Unchanged left basilar thin uniform linear opacities consistent with nonspecific minor fibrosis. Otherwise clear lungs. Pleura and Pleural spaces: No significant pleural effusion. No pneumothorax. Mediastinum: Stable cardiomediastinal silhouette. Atherosclerotic coronary artery calcification or metallic coronary stent and atherosclerotic mural calcification of the thoracic aortic arch are again noted. Bony Thorax and Soft Tissues: No significant interval findings. Median sternotomy. IMPRESSION: No findings to explain the clinical history. Incidental findings described in the body of the report. Dictated by Ezequiel Hernandez MD @ 01/25/2024 8:04:46 AM <Isaura Rivera MD - Last Filed: 01/30/24 00:07> ECG Data Attestation: I personally reviewed and interpreted this ECG as follows: <Isaura Rivera MD - Last Filed: 01/30/24 00:07> Prior ECG tracings: available for review <Isaura Rivera MD - Last Filed: 01/30/24 00:07> Interpretation: Multiple prior EKGs available for review, most recent 01/11/2024. Today sinus rhythm with a rate of 74. Right bundle branch block is stable from previous EKG. No new ST or T-wave abnormalities. Stable EKG. Stable intervals and axis. <Isaura Rivera MD - Last Filed: 01/30/24 00:07> Discharge Plan Discharge Clinical Impression: Abdominal pain, Abnormal LFTs (liver function tests) <Isaura Rivera MD - Last Filed: 01/30/24 00:07> Patient Disposition: Home, Self-Care <Isaura Rivera MD - Last Filed: 01/30/24 00:07> Condition: Stable <Isaura Rivera MD - Last Filed: 01/30/24 00:07> Additional Instructions: Take Protonix as prescribed. Continue other current plans. Follow up for recheck next week as scheduled. A cardiology follow-up is also recommended. Return if worsening. <Isaura Rivera MD - Last Filed: 01/30/24 00:07> Prescriptions: New pantoprazole [Protonix] 20 mg tablet,delayed release (DR/EC) 20 mg PO DAILY Qty: 30 2RF No Action metformin 500 mg tablet 500 mg PO BIDWM lisinopril 20 mg tablet 40 mg PO DAILY glipizide 2.5 mg tablet extended release 24hr 2.5 mg PO DAILY rosuvastatin [Crestor] 40 mg tablet 40 mg PO HS metoprolol tartrate 75 mg tablet 75 mg PO BID acetaminophen 500 mg tablet 1,000 mg PO Q6H PRN aspirin 81 mg tablet,delayed release (DR/EC) 81 mg PO DAILY multivitamin [Daily Multi-Vitamin] Tablet 1 tab PO DAILY nitroglycerin 0.4 mg tablet, sublingual 0.4 mg sublingual Q5-15M PRN Rx Instructions: do not exceed 3 doses per episode hydrocodone-acetaminophen 5-325 mg Tablet 1 - 2 tab PO Q6H PRN (Reason: Pain) Qty: 15 0RF carvedilol 6.25 mg tablet 6.25 mg PO BID <Isaura Rivera MD - Last Filed: 01/30/24 00:07> Follow Up/Referrals: EARNEST MARINO DO [Primary Care Provider] - <Isaura Rivera MD - Last Filed: 01/30/24 00:07> Stand Alone Forms: MyHealth Info Instructions <Isaura Rivera MD - Last Filed: 01/30/24 00:07>
[2024-01-25 07:39] LABS: Chloride* 99 mmol/L (96-114)
[2024-01-25 07:40] LABS: Potassium* 3.6 mmol/L (3.6-5.1); Sodium* 135 mmol/L (135-149)
[2024-01-25 07:42] LABS: Bilirubin Total* 1.4 mg/dL (0.1-1.5); Creatinine* 1.9 mg/dL (0.5-1.5); Estimated Glomerular Filt Rate 37 ml/min
[2024-01-25 07:43] LABS: Alanine Aminotransferase* 167 U/L (4-50); Alkaline Phosphatase* 248 U/L (40-150); Anion Gap 8 mEq/L (7-15); Aspartate Amino Transferase* 36 U/L (12-35); Blood Urea Nitrogen* 21 mg/dL (7-30); Calcium* 9.4 mg/dL (8.4-10.6); Carbon Dioxide* 28 mmol/L (20-32); Glucose* 237 mg/dL (60-115); Total Protein* 6.7 g/dL (6.0-8.3)
[2024-01-25 07:46] LABS: C Reactive Protein* 2.6 mg/dL (0.5-1.0)
[2024-01-25 07:55] LABS: NT Pro B Type NatriureticPept* 681 pg/mL; Troponin I* < 0.01 ng/mL (0.01-0.04)
[2024-01-25 09:41] LABS: Troponin, Point-of-Care* 0.01 ng/ml (0.01-0.04)
--- NOTE | 2024-01-25 10:15 | CRLHL7_ITS ---
For Patients: As a result of the Century Cures Act, medical imaging exams and procedure reports are released immediately into your electronic medical record. You may view this report before your referring provider. If you have questions, please contact your health care provider. INDICATION: Abdominal pain, recurrent TECHNIQUE: CT abdomen and pelvis acquired with 89 cc Isovue 370 IV contrast. COMPARISON: MRI abdomen 01/17/2024, CT abdomen pelvis 01/11/2024. FINDINGS: Lower chest: Trivessel coronary artery calcification with coronary stents. Bibasilar atelectasis. Liver: Bibasilar atelectasis. Gallbladder and bile ducts: Cholecystectomy. No biliary ductal dilation. Pancreas: Unremarkable. Spleen: Spleen is at the upper limits of normal measuring 12.4 centimeters. Adrenal glands: Unremarkable. Kidneys: Subcentimeter hypodense lesions in the left kidney, likely cysts. GI tract: No obstruction. Vasculature: Abdominal aorta is normal in caliber. Moderate aortoiliac atherosclerosis. Mesenteric arteries are patent. Lymph nodes: No lymphadenopathy. Peritoneum/Abdominal Wall: Prior left inguinal hernia repair. Pelvis: Prostatomegaly. Bones: No acute or suspicious osseous lesions. 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 IMPRESSION: No acute intra-abdominal or intrapelvic pathology to explain symptoms. Please note that all CT scans at this facility use dose modulation, iterative reconstruction, and/or weight-based dosing when appropriate to reduce radiation dose to as low as reasonably achievable. Dictated by Linda Zuniga MD @ 01/25/2024 11:32:37 AM (Electronically Signed)
[2024-01-25 10:30] LABS: Lactate* 1.6 mmol/L (0.5-1.9)
[2024-01-25 10:52] LABS: Lipase* 522 U/L (23-300)
[2024-01-25] MEDS: 0.9 % SODIUM CHLORIDE 500 ML 500 ML IV (10:57)
== END 2024-01-25 12:41 | disposition home or self-care (01) ==
PROVIDERS: Emergency Medicine Emergency Medical Services; Emergency Provider Family Medicine; PCP Student in an Organized Health Care Education/Training Program
DX: R07.9 Chest pain, unspecified (principal); R94.5 Abnormal results of liver function studies; R06.02 Shortness of breath
CPT/HCPCS: 36415; 71046; 74177; 80053; 83605; 83690; 83880; 84484; 85025; 86140; 93005; 99284; 99285; J7030; Q9967

== ENCOUNTER 2024-02-10 01:39 | Emergency (ER) | payer MEDICARE, SELFPAY ==
--- OUTSIDE RECORDS SUMMARY | 2024-02-10 01:41 | XMS_ITS | Clinical Summary ---
Author Organization [employer] Address [place], [place] [address] Care Team Providers Care Bonderizer Name Role Phone Nora Siegel DO Primary Care Provider [phone] Isac Baumann MD Unavailable Allergies Active Allergy Reactions Criticality Noted Date Comments Amlodipine Edema 05/19/2022 Tamsulosin Dizziness 06/07/2021 Isosorbide Mononitrate Intolerance-Can't Take 0 04/15/2016 Medications MULTI-VITAMIN ORAL TAB once a day (without Iron) ? 0 11/08/19 01 Active ASPIRIN 81 MG TAB, DELAYED RELEASE take 1 tablet (81mg) by oral route once daily 0 Active acetaminophen (TYLENOL EXTRA STRGTH) 500 mg tablet Take 2 tablets by mouth every 6 hours if needed for Pain. Max acetaminophen dose: 4000mg in 24 hrs. 0 03/28/19 13 Active nitroglycerin (NITROSTAT) 0.4 mg sublingual tabletIndications :Chest pain, unspecified type Place 1 Tablet (0.4 mg) under the tongue every 5 minutes if needed for Chest Pain. 3 Dose Limit per chest pain episode. Do not crush or chew. 25 tablet. 3 11/06/19 21 Active blood-glucose meterIndications: Type 2 diabetes mellitus with hyperglycemia, without long-term current use of insulin (HC) by abdominal subcutaneous route. Dispense meter, test strips, lancets covered by pt ins. E11.9 NIDDM type II - Test 3 times/day, Reason: Hypoglycemia 1 Each 05/28/19 23 Active rosuvastatin (CRESTOR) 40 mg tabletIndications :Type 2 diabetes mellitus with hyperglycemia, without long-term current use of insulin (HC),ASCVD (arteriosclerotic cardiovascular disease),Dyslipid emia Take 1 Tablet (40 mg) by mouth at bedtime. 90 Tablet 3 03/20/19 24 Active inhalational spacing deviceIndications :Chronic bronchitis, unspecified chronic bronchitis type (HC) For home use. 1 Each 03/20/19 24 Active metFORMIN (GLUCOPHAGE) 500 mg tabletIndications :Type 2 diabetes mellitus without complication, without long-term current use of insulin (HC) Take 1 Tablet (500 mg) by mouth two times daily with meals. 60 Tablet 11 03/30/19 24 025 Active glipiZIDE extended-release (GLUCOTROL XL) 2.5 mg Extended-Release tabletIndications :Type 2 diabetes mellitus with stage 3a chronic kidney disease, without long-term current use of insulin (HC) Take 1 Tablet (2.5 mg) by mouth once daily before a meal. 90 Tablet 3 10/02/19 24 Active lisinopriL (PRINIVIL; ZESTRIL) 20 mg tabletIndications :Hypertension, unspecified type TAKE 2 TABLETS BY MOUTH ONCE DAILY. 180 Tablet 3 11/14/19 24 Active HYDROcodone-aceta minophen (5-325 mg/tablet) TAKE 1 - 2 TABLETS BY MOUTH EVERY 6 HOURS NEEDED FOR PAIN 01/10/20 24 Active carvediloL (COREG) 6.25 mg tabletIndications :Hypertension,S/P CABG x 3,S/P insertion of non-drug eluting coronary artery stent Take 1 Tablet (6.25 mg) by mouth two times daily with meals. 180 Tablet 3 01/19/20 24 Active polyethylene glycol-electrolyt e (GOLYTELY) 236-22.74-6.74 -5.86 gram suspensionIndicat ions:Encounter for screening colonoscopy Drink 2 liters (half the bottle) the day before colonoscopy and 2 liters (remaining prep) 6 hours prior to colonoscopy appointment. 4000 mL 01/19/20 24 Active predniSONE (DELTASONE) 20 mg tablet TAKE 2 TABKETS (40MG) BY MOUTH ORALLY DAILY 10/15/19 24 024 Discontin ued(*Dariela ent states no longer taking) metoprolol tartrate (LOPRESSOR) 50 mg tabletIndications :Hypertension, unspecified type Take 1.5 Tablets (75 mg) by mouth two times daily. 270 Tablet 3 11/21/19 24 024 Discontin ued(*Med complete/ Regimen complete/ Level of care change) Active Problems Problem Noted Date Diagnosed Date Cholelithiasis 01/19/2024 Radiculopathy affecting upper extremity 01/19/20 24 S/P left inguinal hernia repair 01/19/2024 Overview (01/19/2024): Laparoscopic, 2023 Influenza-like illness 03/20/2023 Depression, recurrent 05/27/2022 Chronic bronchitis, unspecified chronic bronchit is type 07/23/2021 Unstable angina 12/22/2020 Stage 3a chronic kidney disease 12/22/2020 Adenomatous colon polyp 05/28/2015 Overview (12/11/2019): Colonoscopy 05/2015 large polyp repeat in 2 years Colonoscopy 12/2019 multiple polyps, repeat in 3 years WARD (dyspnea on exertion) 04/17/2014 Type 2 diabetes mellitus wit h chronic kidney disease, without long-term current use of insulin 06/16/2010 Hypertension 01/13/2009 ASCVD (arteriosclerotic cardiovascular disease) 08/11/2005 Overview (12/25/2020): -Non Q NH 2000 -Stenting to RCA 07/2000 -Stenting to OM 1 08/2000 -Angiogram 08/2005: Widely patent stents in the RCA and OM -CABG 03/23/2012 SVBG to the LAD, SVBG to the OM, SVBG to the PDA -Stenting to diagonal 1 and LM 04/17/2014 - 12/25/2020: patent grafts, s/p WEI ostial LM, s/p WEI Intermediate, s/p WEI LCX Dyslipidemia 08/11/2005 S/P CABG x 3 S/P insertion of non-drug eluting coronary arter y stent Resolved Problems Problem Noted Date Diagnosed Date Resolved Date S/P PTCA AND STENT OF CIRCUMFLEX 03/21/2012 Encounters Date Type Department Care Team Description 02/06/2024 Telephone [facility] [address] [place] [address] Alejandra Solis MD 02/01/2024 10:30 AM CARPENTER ASSISTANT INSTALLER Orders Only [facility] [address] [place] [address] Lab, [place] [facility] 02/01/2024 Travel 01/25/2024 Orders Only [facility] Scanner 1 scan: (1-Ord) [place], ABDOMEN PELVIS W/CON, 01/25/2024 01/25/2024 Orders Only [facility] Scanner 1 scan: (1-Ord) [facility], XR CHEST 2V, 01/25/2024 01/23/2024 1:30 PM CARPENTER ASSISTANT INSTALLER Office Visit [facility] [place] [address] Alejandra Solis MD Post-op (lap jeniffer 01/09/24) 01/23/2024 Travel 01/19/2024 1:15 PM CARPENTER ASSISTANT INSTALLER Ancillary Procedure [facility] [address] [place] [address] 01/19/2024 12:25 PM CARPENTER ASSISTANT INSTALLER Office Visit [facility] [place] [address] Nora Siegel DO Medicare ANNUAL (subsequent) Visit (73 year old ) 01/19/2024 Telephone [facility] [place] [address] Ambrose Salcedo MD Screening 01/19/2024 Travel 01/18/2024 Orders Only [facility] [address] [place] [address] Alejandra Solis MD 1 scan: (1-Ord) [facility], ABDOMEN WO, 01/17/2024 01/16/2024 1:00 PM CARPENTER ASSISTANT INSTALLER Office Visit [facility] [place] [address] Alejandra Solis MD Post-op (SEEN IN ER 01/11/24-lap jeniffer 01/09/24) 01/16/2024 Travel 01/11/2024 Orders Only [facility] Scanner 1 scan: (1-Ord) [facility], CT ABD PELVIS W/CON, 01/11/2024 01/11/2024 Orders Only [facility] Scanner 1 scan: (1-Ord) [facility], CT ANGIO CHEST , 01/11/2024 01/10/2024 Orders Only [facility] [address] [facility] [address] Nora Siegel DO <No scans attached> 01/10/2024 Travel 01/10/2024 Lab Requisition [facility] [phone] Alejandra Solis MD 01/09/2024 8:00 AM CARPENTER ASSISTANT INSTALLER Office Visit [facility] at [facility] [address] [facility] [address] Alejandra Solis MD 01/09/2024 Orders Only [facility] Scanner 1 scan: (1-Ord) [facility], LAPAROSCOPIC CHOLECYSTECTOMY, 01/09/2024 01/09/2024 Orders Only [facility] Scanner 1 scan: (1-Ord) [facility], US GALLBLADDER, 01/09/2024 01/09/2024 Orders Only [facility] Scanner 1 scan: (1-Ord) [place], XR CHEST 2V, 01/09/2024 01/09/2024 Orders Only [facility] Scanner 1 scan: (1-Ord) [place], ABDOMEN PELVIS W CON, 01/09/2024 11/20/2023 9:30 AM CDT Orders Only [facility] [address] [facility] [address] Lab, [place] [facility] 11/20/2023 Refill [facility] [address] [place] [address] Nora Siegel DO Refill Request (Metoprolol Tartrate) 11/20/2023 Travel 11/15/2023 Orders Only [facility] [address] [facility] [address] [place] [address] Isac Baumann MD Lab (Order update) 11/14/2023 2:15 PM CDT Office Visit [facility] [address] [place] [address] Alejandra Solis MD Post-op (LAPAROSCOPIC LEFT INGUINAL HERNIA REPAIR 10/30/23) 11/14/2023 Travel 11/11/2023 Refill [facility] [address] [place], [place] [id number] Nora Siegel DO Refill Request (Lisinopril) from Last 3 Months Immunizations Name Administration Dates Next Due AMB Influenza, IIV3 (Age >=3 years)(Flu Clinic Only) 01/13/2010 COVID-19 vaccine (Littlecast NTeSilicon 30mcg/0.3mL) PF, MDV 12/28/2020,05/01/2020,04/10/2020 Influenza, High-dose Inactivated 10/23/2015 Influenza, IIV3 (Age 6-35 mos) 12/14/2010 Influenza, IIV3 (Age >=3 years) 12/14/2010,01/04 Influenza, IIV4 11/07/2014,02/21/2014 Influenza, Inactivated AIIV4 (Age 65+ Years) Preserv Free 11/05/2020,11/05/2019 Influenza, Inactivated IIV3 (Age 65+ Years) Preserv Free 11/14/2018,11/03/2017,10/25/2016 Pneumococcal Poly,23-Valent (Pneumovax) 10/26/19 17 Pneumococcal conj 13-Valent (Prevnar 13) 016 Tdap 07/29/2009 Family History Medical History Relation Name Comments Other Father gastric carcino ma Other Mother sarcoid-pulmona ry Genetic Other 1 Family history was unchanged during the ten months regarding premature vascular disease in first degree relatives. Cancer Other 2 all his grandfa thers sibling have stomach cancer Other Paternal Grandfather gastric carcinoma Relation Name Status Comments Father Mother Other 1 Other 2 Paternal Grandfather Social History Tobacco Use Types Packs/Day Years Used Date Smoking Tobacco: Former Cigarettes Q uit: 02/06/1969 Smokeless Tobacco: Never Tobacco Cessation:Counseling Given: Yes Alcohol Use Standard Drinks/Week Comments Not Currently 0 (1 standard drink = 0.6 oz pur e alcohol) Alcoholic Drinks/day: 0 [facility] Utilities Answer Date Recorded Do you have trouble paying f or utilities (for example, heat, electricity, water, phone)? Yes 07/28/2023 PHQ-2 Answer Date Recorded PHQ-2 TOTAL SCORE 2 01/19/2024 Social Connections Answer Date Recorded Do you often feel lonely or isolated from those around you? 0 07/28/2023 Financial Resource Strain Answer Date R ecorded Difficulty of Paying Living Expenses 3 07/28/2023 Difficulty of Paying Living Expenses Not on file 07/28/2023 Food Insecurity Answer Date Recorded Do you worry your food will run out before you are able to buy more? 1 07/28/2023 Transportation Needs Answer Date Record ed Does lack of transportation keep you from medica l appointments? 1 07/28/2023 Does lack of transportation keep you from work, meetings or getting things that you need? 1 07/28/2023 Housing Stability Answer Date Recorded What is your housing situation today? 1 07/28/2023 Interpersonal Safety Answer Date Record ed Are you being hit, kicked, p ushed or yelled at (see row info)? No 03/17/2023 Interpersonal Safety Abuse 12 - 18 Not on file 03/17/2023 Interpersonal Safety Ambulatory Vulnerability No t on file 03/17/2023 Sex and Gender Information Value Date Recorded Sex Assigned at Not on file Legal Sex Male 5:25 AM CARPENTER ASSISTANT INSTALLER Gender Identity Not on file Sexual Orientation Not on file Obstetrics History Last Filed Vital Signs Vital Sign Reading Time Taken Comments Blood Pressure 152/79 01/23/2024 1:06 PM CARPENTER ASSISTANT INSTALLER Pulse 72 01/23/2024 1:06 PM CARPENTER ASSISTANT INSTALLER Temperature 36.8 C (98.3 F) 03/17/2023 11:28 AM CARPENTER ASSISTANT INSTALLER Respiratory Rate 16 03/17/2023 11:28 AM CARPENTER ASSISTANT INSTALLER Oxygen Saturation 99% 01/23/2024 1:06 PM CARPENTER ASSISTANT INSTALLER Inhaled Oxygen Concentration - - Weight 74 kg (163 lb 1.6 oz) 01/23/2024 1:06 PM CARPENTER ASSISTANT INSTALLER Height 172.7 cm (5' 8) 01/19/2024 12:34 PM CARPENTER ASSISTANT INSTALLER Body Mass Index 24.8 01/19/2024 12:34 PM CARPENTER ASSISTANT INSTALLER Plan of Treatment Upcoming Encounters Date Type Department Care Team (Late st Contact Info) Description 03/18/2024 9:20 AM CARPENTER ASSISTANT INSTALLER Office Visit [facility] [address] [place] [address] Nora Siegel DO [address] [place] [address] 04/05/2024 9:45 AM CARPENTER ASSISTANT INSTALLER Office Visit [facility] [address] [facility] [place] [address] Ambrose Salcedo MD [address] [place] [address] Health Maintenance Due Date Last Done Comments Zoster (shingles) series for age 50+ (1 of 2) 12/19/1999 RSV vaccine for adults or (1 - Risk 60-74 years 1-dose series) 2009 Tetanus booster 07/30/2019 07/29/2009 Colonoscopy through age 75 12/09/202212/09, 12/10/2019, 12/10/2019, Additional history exists COVID-19 vaccine series ( season) 2023 12/28/2020, 05/01/2020, 04/10/2020 Influenza for age 65+ 10/08/2023 11/05/2020 , 11/05/2019, 11/14/2018, Additional history exists BMI (ht and wt on same day) for age 18+ 01/18/2025 01/19/2024, 10/06/2022, 09/24/2021, Additional history exists Depression screening for age 12+ 01/18/2025 01/19/2024, 01/19/2024, 10/06/2022, Additional history exists Medicare Wellness for age 65+ 01/19/2025, 10/06/2022, 07/23/2021, Additional history exists Lipids for age 45-75 01/18/2029 01/19/2024, 10/06/2022, 11/05/2020, Additional history exists Tdap Completed 07/29/2009 Pneumococcal series for age 50+ Completed 7, 10/23/2015 AAA screening age 65-74 Completed 11/08/2019 Hepatitis C screening for ag e 18-79 Completed 11/05/2020 Procedures Procedure Name Priority Date/Time Associated Diagnosis Comments HEPATIC FUNCTION PANEL Routine 4 9:59 AM CARPENTER ASSISTANT INSTALLER Elevated LFTs SCAN-CT INTERPRETATION 4 12:00 AM CARPENTER ASSISTANT INSTALLER SCAN-RADIOLOGY REPORT 01/25/2024 12:00 AM CARPENTER ASSISTANT INSTALLER XR CHEST 2 VIEWS PA AND LATERAL STAT 01/19/2024 1:26 PM CARPENTER ASSISTANT INSTALLER Acute cough HEMOGLOBIN A1C Routine 01/19/2024 1:13 PM CARPENTER ASSISTANT INSTALLER Type 2 diabetes mellitus with stage 3a chronic kidney disease, without long-term current use of insulin (HC) LIPID PANEL W REFLEX MEASURED LDL Routine 01/19/2024 1:13 PM CARPENTER ASSISTANT INSTALLER Type 2 diabetes mellitus with stage 3a chronic kidney disease, without long-term current use of insulin (HC) BASIC METABOLIC PANEL Routine 01/19/2024 1:13 PM CARPENTER ASSISTANT INSTALLER Type 2 diabetes mellitus with stage 3a chronic kidney disease, without long-term current use of insulin (HC) MR ABDOMEN MRCP WO STAT 01/17/2024 12 :00 AM CARPENTER ASSISTANT INSTALLER Elevated LFTs LIPASE STAT 01/16/2024 1:10 PM CARPENTER ASSISTANT INSTALLER Elevated LFTs HEPATIC FUNCTION PANEL STAT 4 1:10 PM CARPENTER ASSISTANT INSTALLER Elevated LFTs CBC WITH AUTO DIFFERENTIAL Routine 01/16/2024 1:10 PM CARPENTER ASSISTANT INSTALLER Elevated LFTs Post-op pain SCAN-CT INTERPRETATION 4 12:00 AM CARPENTER ASSISTANT INSTALLER SCAN-CT INTERPRETATION 4 12:00 AM CARPENTER ASSISTANT INSTALLER LAB TRACKING EVENT Routine 01/09/2024 6: 45 PM CARPENTER ASSISTANT INSTALLER PATH TISSUE EXAM Routine 01/09/2024 6:43 PM CARPENTER ASSISTANT INSTALLER SCAN-ULTRASOUND REPORT 4 12:00 AM CARPENTER ASSISTANT INSTALLER SCAN-RADIOLOGY REPORT 01/09/2024 12:00 AM CARPENTER ASSISTANT INSTALLER SCAN-CT INTERPRETATION 12:00 AM CARPENTER ASSISTANT INSTALLER SCAN-OPERATIVE/PROCEDUR E REPORT 01/09/2024 12:00 AM CARPENTER ASSISTANT INSTALLER BASIC METABOLIC PANEL Routine 11/20/2023 9:28 AM CDT Stage 3b chronic kidney disease (HC) ANTI HCV Routine 11/05/2020 8:31 AM CDT Encounter for hepatitis C screening test for low risk patient COLONOSCOPY 12/10/2019 9:04 AM CARPENTER ASSISTANT INSTALLER US AORTA Routine 11/08/2019 9:55 AM CDT Screening for AAA (abdominal aortic aneurysm) from Last 3 Months or Most Recently Relevant to Health Maintenance Results * (ABNORMAL) HEPATIC FUNCTION PANEL (02/01/2024 9:59 AM CARPENTER ASSISTANT INSTALLER) Only the most recent of2 resultswithin the time period is included. PROTEIN, TOTAL 6.7 6.1 - 8.1 g/dL [facility] ALBUMIN 4.0 3.6 - 5.1 g/dL [facility] GLOBULIN 2.7 1.9 - 3.7 g/dL (calc) [facility] ALBUMIN/GLOBULIN RATIO 1.5 1.0 - 2.5 (calc) [facility] BILIRUBIN, TOTAL 0.7 0.2 - 1.2 mg/dL [facility] BILIRUBIN, DIRECT 0.2 < OR = 0.2 mg/dL [facility] BILIRUBIN, INDIRECT 0.5 0.2 - 1.2 mg/dL (calc) [facility] ALKALINE PHOSPHATASE 159(H) 35 - 144 U/L [facility] AST 13 10 - 35 U/L [facility] ALT 24 9 - 46 U/L [facility] Blood BLOOD SPECIMEN / Unknown 02/01/2024 9:59 AM CARPENTER ASSISTANT INSTALLER 02/01/2024 9:59 AM CARPENTER ASSISTANT INSTALLER Alejandra Solis MD CHEMISTRY Final Re sult [facility] [address] [place] [address], [facility] [address] [place] [address] * SCAN-RADIOLOGY REPORT (01/25/2024 12:00 AM CARPENTER ASSISTANT INSTALLER) Only the most recent of2 resultswithin the time period is included. Anatomical Region Laterality Modality Other us Scanner OTHER Final Result * SCAN-CT INTERPRETATION (01/25/2024 12:00 AM CARPENTER ASSISTANT INSTALLER) Only the most recent of4 resultswithin the time period is included. Anatomical Region Laterality Modality Other us Scanner OTHER Final Result * XR CHEST 2 VIEWS PA AND LATERAL (01/19/2024 1:26 PM CARPENTER ASSISTANT INSTALLER) Anatomical Region Laterality Modality CHEST, THORAX, Lung, HEART Compu damien Radiography 01/19/2024 1:34 PM CARPENTER ASSISTANT INSTALLER Narrative 01/19/2024 1:34 PM CARPENTER ASSISTANT INSTALLER For Patients: As a result of the Cures Act, medical imaging exams and procedure reports are released immediately into your electronic medical record. You may view this report before your referring provider. If you have questions, please contact your health care provider. Indication: Acute cough Technique: PA and lateral views of the chest. Comparison: 03/17/2023. Findings: Low lung volumes. Postop changes from median sternotomy and coronary artery bypass grafting. Normal cardiomediastinal silhouette. No focal consolidation, pleural effusions, or visualized pneumothorax. Mild degenerative changes of the visualized spine. Impression: No acute cardiopulmonary disease. Dictated by Charan Morrison MD @ 01/19/2024 1:34:22 PM (Electronically Signed) Procedure Note Perry Morrison MD - 01/19/2024 For Patients: As a result of the Cures Act, medical imagingexams and procedure reports are released immediately into your electronicmedical record. You may view this report before your referring provider.If you have questions, please contact your health care provider. Indication: Acute cough Technique: PA and lateral views of the chest. Comparison: 03/17/2023. Findings: Low lung volumes. Postop changes from median sternotomy and coronary artery bypassgrafting. Normal cardiomediastinal silhouette. No focal consolidation, pleural effusions, or visualized pneumothorax. Mild degenerative changes of the visualized spine. Impression: No acute cardiopulmonary disease. Dictated by Charan Morrison MD @ 01/19/2024 1:34:22 PM (Electronically Signed) [employer] Lennyjose alberto DO GENERAL IMAGING Final Result * (ABNORMAL) HEMOGLOBIN A1C (01/19/2024 1:13 PM CARPENTER ASSISTANT INSTALLER) HEMOGLOBIN A1C 8.0(H) <5.7 % of total Hgb [facility] Comment: For someone without known diabetes, a hemoglobin A1c value of 6.5% or greater indicates that they may have diabetes and this should be confirmed with a follow-up test. For someone with known diabetes, a value <7% indicates that their diabetes is well controlled and a value greater than or equal to 7% indicates suboptimal control. A1c targets should be individualized based on duration of diabetes, age, comorbid conditions, and other considerations. Currently, no consensus exists regarding use of hemoglobin A1c for diagnosis of diabetes for children. Blood BLOOD SPECIMEN / Unknown 01/19/2024 1:13 PM CARPENTER ASSISTANT INSTALLER 01/19/2024 1:13 PM CARPENTER ASSISTANT INSTALLER [employer] Lennyjose alberto WHEELER CHEMISTRY Final Result [employer] [facility] [address] [place] [address], [facility] [address] [place] [address] * (ABNORMAL) LIPID PANEL W REFLEX MEASURED LDL (01/19/2024 1:13 PM CARPENTER ASSISTANT INSTALLER) CHOLESTEROL, TOTAL 87 <200 mg/dL [facility] HDL CHOLESTEROL 28(L) > OR = 40 mg/dL [facility] TRIGLYCERIDES 160(H) <150 mg/dL [facility] LDL-CHOLESTEROL 35 mg/dL (calc) [facility] Comment: Reference range: <100 Desirable range <100 mg/dL for primary prevention; <70 mg/dL for patients with CHD or diabetic patients with > or = 2 CHD risk factors. LDL-C is now calculated using the Aminata calculation, which is a validated novel method providing better accuracy than the Friedewald equation in the estimation of LDL-C. Ambrose KEYES et al. SUSAN. 2013;310(19): 2447-2874 (http://education.ShuttleCloud/faq/OIB370) CHOL/HDLC RATIO 3.1 <5.0 (calc) [facility] NON HDL CHOLESTEROL 59 <130 mg/dL (calc) [facility] Comment: For patients with diabetes plus 1 major ASCVD risk factor, treating to a non-HDL-C goal of <100 mg/dL (LDL-C of <70 mg/dL) is considered a therapeutic option. Blood BLOOD SPECIMEN / Unknown 01/19/2024 1:13 PM CARPENTER ASSISTANT INSTALLER 01/19/2024 1:13 PM CARPENTER ASSISTANT INSTALLER us Nora Siegel DO CHEMISTRY Final Result [employer] [facility] [address] [place] [address], [facility] [address] [place] [address] * (ABNORMAL) BASIC METABOLIC PANEL (01/19/2024 1:13 PM CARPENTER ASSISTANT INSTALLER) Only the most recent of2 resultswithin the time period is included. GLUCOSE 262(H) 65 - 99 mg/dL [employer] Comment: Fasting reference interval For someone without known diabetes, a glucose value >125 mg/dL indicates that they may have diabetes and this should be confirmed with a follow-up test. UREA NITROGEN (BUN) 23 7 - 25 mg/dL [facility] CREATININE 1.81(H) 0.70 - 1.28 mg/dL [facility] EGFR 39(L) > OR = 60 mL/min/1.7 3m2 [facility] BUN/CREATININE RATIO 13 6 - 22 (calc) [facility] SODIUM 138 135 - 146 mmol/L [facility] POTASSIUM 4.1 3.5 - 5.3 mmol/L [facility] CHLORIDE 101 98 - 110 mmol/L [facility] CARBON DIOXIDE 28 20 - 32 mmol/L [facility] ELECTROLYTE BALANCE 9 7 - 17 mmol/L (calc) [facility] CALCIUM 9.2 8.6 - 10.3 mg/dL [facility] Blood BLOOD SPECIMEN / Unknown 01/19/2024 1:13 PM CARPENTER ASSISTANT INSTALLER 01/19/2024 1:13 PM CARPENTER ASSISTANT INSTALLER Nora Siegel DO CHEMISTRY Final Result [employer] [facility] [address] [place] [address], [facility] [address] [place] [address] * MR ABDOMEN MRCP WO (01/17/2024 12:00 AM CARPENTER ASSISTANT INSTALLER) Anatomical Region Laterality Modality Abdomen, LIVER, PANCREAS, KIDNEYS, AORTA [employer] us Alejandra Solis MD MR Final Re sult * CBC AND DIFFERENTIAL (01/16/2024 1:10 PM CARPENTER ASSISTANT INSTALLER) WHITE BLOOD CELL COUNT 8.3 3.8 - 10.8 Thousand/u L [facility] RED BLOOD CELL COUNT 5.18 4.20 - 5.80 Million/uL [facility] HEMOGLOBIN 15.6 13.2 - 17.1 g/dL [facility] HEMATOCRIT 47.0 38.5 - 50.0 % [facility] MCV 90.7 80.0 - 100.0 fL [facility] MCH 30.1 27.0 - 33.0 pg [facility] MCHC 33.2 32.0 - 36.0 g/dL [facility] [facility] Comment: For adults, a slight decrease in the calculated MCHC value (in the range of 30 to 32 g/dL) is most likely not clinically significant; however, it should be interpreted with caution in correlation with other red cell parameters and the patient's clinical condition. RDW 13.2 11.0 - 15.0 % [facility] PLATELET COUNT 307 140 - 400 Thousand/u L [facility] MPV 9.6 7.5 - 12.5 fL [facility] ABSOLUTE NEUTROPHILS 6,225 1,500 - 7,800 cells/uL [facility] ABSOLUTE LYMPHOCYTES 1,162 850 - 3,900 cells/uL [facility] ABSOLUTE MONOCYTES 631 200 - 950 cells/uL [facility] ABSOLUTE EOSINOPHILS 241 15 - 500 cells/uL [facility] ABSOLUTE BASOPHILS 42 0 - 200 cells/uL [facility] NEUTROPHILS 75 % [facility] LYMPHOCYTES 14.0 % [facility] MONOCYTES 7.6 % [facility] EOSINOPHILS 2.9 % [facility] BASOPHILS 0.5 % [facility] Blood BLOOD SPECIMEN / Unknown 01/16/2024 1:10 PM CARPENTER ASSISTANT INSTALLER 01/16/2024 1:11 PM CARPENTER ASSISTANT INSTALLER us Alejandra Solis MD HEMATOLOGY Final Re sult [employer] [facility] [address] [place] [address], [facility] [address] [place] [address] * STAT Lipase (01/16/2024 1:10 PM CARPENTER ASSISTANT INSTALLER) LIPASE 37.2 13.0 - 60.0 IU/L 01/16/2024 3:44 PM CARPENTER ASSISTANT INSTALLER [facility] Blood BLOOD SPECIMEN / Unknown [facility] / Unknown 01/16/2024 1:10 PM CARPENTER ASSISTANT INSTALLER 01/16/2024 1:10 PM CARPENTER ASSISTANT INSTALLER Alejandra Solis MD CHEMISTRY Final Re sult Performing Organization Address [facility] Co de Phone Number [facility] [address] [place] [address] * LAB TRACKING EVENT (01/09/2024 6:45 PM CARPENTER ASSISTANT INSTALLER) Other (Other) Client Collect / Unknown 01/09/2024 6:45 PM CARPENTER ASSISTANT INSTALLER 01/10/2024 2:58 PM CARPENTER ASSISTANT INSTALLER us Alejandra Solis MD LAB BILL ONLY Final Re sult Performing Organization Address [facility] Co de Phone Number [facility] [address] [place] [address], [place] * PATH TISSUE EXAM (01/09/2024 6:43 PM CARPENTER ASSISTANT INSTALLER) Case Report Pathology Report Case: [id number] Authorizing Provider: Alejandra Solis MD Collected: 01/09/2024 1843 Ordering Location: [facility] Received: 01/10/2024 1743 Pathologist: Jose C Alcazar MD Specimen: Gallbladder 01/12/2024 12:42 PM CARPENTER ASSISTANT INSTALLER [facility] ENTRAL LABORATORY Final Diagnosis A) GALLBLADDER, CHOLECYSTECTOMY: 1. Chronic cholecystitis 2. Cholelithiasis 3. Negative for dysplasia and malignancy 01/12/2024 12:42 PM CARPENTER ASSISTANT INSTALLER [facility] ENTRAL LABORATORY Clinical Information Cholelithiasis 01/12/2024 12:42 PM CARPENTER ASSISTANT INSTALLER [facility] Gross Description A) Received in formalin, labeled with the patient's name and gallbladder, is a 7.2 x 3.0 x 1.0 cm disrupted gallbladder. There are multiple black gallstones identified. There are no mucosal lesions identified. The average wall thickness is 0.3 cm. There is no abnormal wall thickening identified. Due to the nature of the specimen, no discrete cystic duct margin is grossly identified. No cystic duct lymph node is identified. Choker Hooker sections are submitted in one cassette. SJM 01/10/2024 01/12/2024 12:42 PM CARPENTER ASSISTANT INSTALLER [facility] Microscopic Description The final diagnosis is based on microscopic examination of appropriate sections of all specimens. 01/12/2024 12:42 PM CARPENTER ASSISTANT INSTALLER [facility] Additional Information Interpreted at [facility] - [address] [facility] [address], [place] [address] 01/12/2024 12:42 PM CARPENTER ASSISTANT INSTALLER [facility] Other SPECIMEN FROM GALLBLADDER / Unknown 01/09/2024 6:43 PM CARPENTER ASSISTANT INSTALLER 01/10/2024 5:43 PM CARPENTER ASSISTANT INSTALLER us Alejandra Solis MD PATHOLOGY/CYTOLOGY Final Result Performing Organization Address City/State/[facility] Co de Phone Number [facility] [address] [place] [address], [place] * SCAN-OPERATIVE/PROCEDURE REPORT (01/09/2024 12:00 AM CARPENTER ASSISTANT INSTALLER) us Scanner OTHER Final Result * SCAN-ULTRASOUND REPORT (01/09/2024 12:00 AM CARPENTER ASSISTANT INSTALLER) Anatomical Region Laterality Modality Other us Scanner OTHER Final Result * ANTI HCV (11/05/2020 8:31 AM CDT) HEPATITIS C ANTIBODY Non-React thad Non-React thad 11/05/2020 3:35 PM CDT [facility] Comment:Antibodies to HCV no t detected; does not exclude the possibility of exposure to HCV. Blood BLOOD SPECIMEN / Unknown Venipuncture / Unknown 11/05/2020 8:31 AM CDT 11/05/2020 8:31 AM CDT us Nora Siegel DO SEND OUTS Final Result [facility] [address] [place] [address], [place] * COLONOSCOPY (12/10/2019 9:04 AM CARPENTER ASSISTANT INSTALLER) 12/10/2019 9:04 AM CARPENTER ASSISTANT INSTALLER Narrative Transcriptions Ambrose Salcedo MD - 12/10/2019 11:09 AM CST Patient Name: Sarbjit Berg Procedure Date: 12/10/2019 Gender: Male Date of : 1950 Admit Type: Outpatient Procedure: Colonoscopy Proceduralist: Ambrose Salcedo MD , Maribel Esqueda (Nurse) Indications/Pre-Op Diagnosis: Surveillance: Personal history ofadenomatous polyps on last colonoscopy > 3 years ago,Last colonoscopy: May 2015, Incidental diarrhea noted Medications: Fentanyl 100 micrograms IV, Midazolam 2 mgIV, The level of sedation administered wasmoderate Procedure Description: The patient had risks, benefits and alternatives explained to andgave informed consent. The patient had a stable cardiopulmonary status and judged an adequate candidate for conscious sedation. The colonoscope was passed through the anus and advanced to theterminal ileum. The colonoscopy was performed without difficulty. The patient tolerated the procedure well. The quality of the bowel preparationwas good. The terminal ileum, ileocecal valve, appendiceal orifice, and rectum were photographed. Complications: No immediate complications. Estimated Blood Loss & Specimen: Estimated blood loss: none. Estimated blood loss: none. Specimen collected - Yes and sent to Laboratory Findings: The perianal and digital rectal examinations were normal. The terminal ileum appeared normal. A 2 mm polyp was found in the cecum. The polyp was sessile. The polyp was removed with a cold biopsy forceps. Resection and retrieval were complete. A small post polypectomy scar was found in the cecum. There was no evidence of the previous polyp. Biopsies were taken with a coldforceps for histology. A 2 mm polyp was found in the ascending colon. The polyp was sessile. The polyp was removed with a cold biopsy forceps. Resection and retrieval were complete. A 4 mm polyp was found in the ascending colon. The polyp was sessile. The polyp was removed with a cold snare. Resection and retrieval were complete. A 3 mm polyp was found in the transverse colon. The polyp wassessile. The polyp was removed with a cold snare. Resection and retrieval were complete. Biopsies for histology were taken with a cold forceps from the entire colon for evaluation of microscopic colitis. The exam was otherwise without abnormality on direct and retroflexion views. Impressions/Post-Op Diagnosis: - No specimens collected. Recommendation: - Patient has a contact number available for emergencies. The signsand symptoms of potential delayed complications were discussed with the patient. Return to normal activities tomorrow. Written discharge instructions were provided to the patient. - Resume previous diet. - Continue present medications. - Await pathology results. - Repeat colonoscopy is recommended for surveillance. The colonoscopy date will be determined after pathology results from today's exambecome available for review. Moderate Sedation: Moderate (conscious) sedation was administered by the endoscopy nurse and supervised by the endoscopist. The following parameters were monitored: oxygen saturation, heart rate, respiratory rate, blood pressure, adequacy of pulmonary ventilation and reponse to care. [facility] and nursing notes for moderate sedation details. Total physician intraservice time was 27 minutes. Ambrose Salcedo MD 12/10/2019 11:09:49 AM This report has been signed electronically. Note Initiated On: 12/10/2019 9:04 AM Procedure Code(s): --- Professional --- 64176, Colonoscopy, flexible; with removalof tumor(s), polyp(s), or other lesion(s) bylouis technique 95418, 59, Colonoscopy, flexible; withbiopsy, single or multiple Diagnosis Code(s): --- Professional --- Z86.010, Personal history of colonicpolyps CPT copyright 2019 [employer]. All rights reserved. The codes documented in this report are preliminary and upon health information coder reviewmay be revised to meet current compliance requirements. Scope In: 10:35:00 AM Scope Withdrawal Time 0 hours 19 minutes 35 seconds Scope Out: 10:59:55 AM us Ambrose Salcedo MD PROCEDURE ORD Final Res ult * US AORTA (11/08/2019 9:55 AM CDT) Anatomical Region Laterality Modality Abdomen, AORTA Ultrasound 11/08/2019 1:58 PM CDT Narrative 11/08/2019 1:58 PM CDT INDICATION: Screening for abdominal aortic aneurysm COMPARISON: none TECHNIQUE: Foster scale and color Doppler images were acquired of the abdominal aorta and iliac arteries. FINDINGS: There is no evidence of aneurysm formation or aortic dissection. Proximally, the aorta measures 2.7 x 2.3 cm in diameter, mid 1.9 x 1.9 cm, and distally tapers to a measurement of 1.4 x 1.4 cm. The common iliac arteries are patent and measure 1.2 x 1.1 cm on the right and 1.1 x 1.0 cm in diameter on the left. There are no suspicious periaortic masses. IMPRESSION: No evidence of abdominal aortic aneurysm. Dictated by Jimbo Britt MD @ Nov 08 2019 1:58PM (Electronically Signed) Procedure Note Jimbo Britt MD - 11/08/2019 INDICATION: Screening for abdominal aortic aneurysm COMPARISON: none TECHNIQUE: Foster scale and color Doppler images were acquired of the abdominal aortaand iliac arteries. FINDINGS: There is no evidence of aneurysm formation or aortic dissection.Proximally, the aorta measures 2.7 x 2.3 cm in diameter, mid 1.9 x 1.9 cm,and distally tapers to a measurement of 1.4 x 1.4 cm. The common iliacarteries are patent and measure 1.2 x 1.1 cm on the right and 1.1 x 1.0 cmin diameter on the left. There are no suspicious periaortic masses. IMPRESSION: No evidence of abdominal aortic aneurysm. Dictated by Jimbo Britt MD @ Nov 08 2019 1:58PM (Electronically Signed) Jimbo Hernandez MD Final Resu lt from Last 3 Months or Most Recently Relevant to Health Maintenance Insurance MEDICARE [place] ONLY MEDICARE PART B HB ONLY MEDICARE PART A HB ONLY Advance Directives * Full Code (Latest Code Status on File) Date Activated Date Inactivated Comments 12/25/2020 9:10 AM 12/25/2020 6:33 PM Question Answer Comments Code Status Discussion: Reviewed Preferences * Full Code Date Activated Date Inactivated Comments 04/11/2016 10:22 AM 04/11/2016 8:52 PM * Full Code Date Activated Date Inactivated Comments 04/17/2014 8:05 AM 04/17/2014 9:18 PM * Full Code Date Activated Date Inactivated Comments 03/23/2012 12:20 PM 03/29/2012 8:04 PM * Full Code Date Activated Date Inactivated Comments 03/21/2012 7:13 AM 03/23/2012 12:20 PM Care Teams Bonderizer Relationship Specialty Start Date End Date Nora Siegel DO [address] [place] [address] PCP - General Family Practice 11/06/20 [place] [address] [place] [address] Nephrology 10/03/23
--- OUTSIDE RECORDS SUMMARY | 2024-02-10 01:41 | XMS_ITS | Continuity of Care Document ---
Author Name NwHIN User [email or web address]lowed Address Unknown Organization Unknown Address Unknown Procedures FILTER APPLIED:Only known Procedures with Onset Date within the last 5 years Procedure Date Procedure Provider Additiona l Information Status CT ANGIOGRAPHY CHEST (27321) Completed EMERGENCY DEPT VISIT MOD MDM (28496) Completed URINE CULTURE/COLONY COUNT (76491) Completed AUTOMATED RETICULOCYTE COUNT (74745) Completed URINALYSIS AUTO W/SCOPE (14153) Completed ROUTINE VENIPUNCTURE (55081) Completed ELECTROCARDIOGRAM TRACING (57895) Completed COMPLETE CBC W/AUTO DIFF WBC (54935) Completed ASSAY OF TROPONIN QUANT (28596) Completed ASSAY OF NATRIURETIC PEPTIDE (25913) Completed ASSAY OF MAGNESIUM (78989) Completed METABOLIC PANEL TOTAL CA (19869) Completed EMERGENCY DEPT VISIT HI MDM (45906) Completed MEASURE BLOOD OXYGEN LEVEL (19195) Completed ELECTROCARDIOGRAM TRACING (44987) Completed EMERGENCY DEPT VISIT MOD MDM (94428) Completed RESP VIRUS 3-5 TARGETS (00344) Completed C-REACTIVE PROTEIN (55031) Completed ROUTINE VENIPUNCTURE (87273) Completed COMPLETE CBC W/AUTO DIFF WBC (05945) Completed ASSAY OF TROPONIN QUANT (17203) Completed ASSAY OF LACTIC ACID (22165) Completed COMPREHEN METABOLIC PANEL (90545) Completed X-RAY EXAM CHEST 2 VIEWS (05075) Completed FIBRIN DEGRADATION QUANT (48430) Completed Encounters FILTER APPLIED:Only known Encounters with Admission Date within the last 5 years Encounter Location Admission Discharge Billing Code Consultant Brigitte chau Emergency Srikanth Rivera Emergency Shabnam Rodarte
--- NOTE | 2024-02-10 01:44 | ED.GENADULT ---
HPI - General Adult General Time Seen by Provider: 01:44 Date Seen: 02/10/24 Chief complaint: Cough Stated complaint: Cough, sore throat, hurts chest Time Seen by Provider: 02/10/24 01:42 Source: patient Mode of arrival: ambulatory Limitations: no limitations History of Present Illness HPI narrative: 73-year-old male who comes in with cough, sore throat, and chest discomfort. Patient notes he has felt poorly for the past month or so. Multiple emergency department visits. Today comes in for cough, this is been ongoing for couple of weeks but getting worse. Notes shortness of breath with activity. Diffuse chest pain which is worse when he breathes or coughs. Occasional nausea, decreased appetite. No diarrhea. No leg swelling. Denies fevers or chills. Has had a sore throat with this as well. Related Data Home Medications ?Medication ?Instructions ?Recorded ?Confirmed lisinopril 20 mg tablet 40 mg PO DAILY 03/13/23 01/25/24 metformin 500 mg tablet 500 mg PO BIDWM 03/13/23 01/25/24 metoprolol tartrate 75 mg tablet 75 mg PO BID 10/15/23 01/12/24 glipizide 2.5 mg tablet, extended 2.5 mg PO DAILY 10/30/23 01/25/24 release 24 hr rosuvastatin 40 mg tablet (Crestor) 40 mg PO HS 10/30/23 01/25/24 acetaminophen 500 mg tablet 1,000 mg PO Q6H PRN 01/09/24 01/25/24 aspirin 81 mg tablet,delayed 81 mg PO DAILY 01/09/24 01/25/24 release multivitamin (Daily Multi-Vitamin 1 tab PO DAILY 01/09/24 01/25/24 tablet) nitroglycerin 0.4 mg sublingual 0.4 mg sublingual Q5-15M PRN 01/09/24 01/25/24 tablet carvedilol 6.25 mg tablet 6.25 mg PO BID 01/25/24 01/25/24 Previous Rx's ?Medication ?Instructions ?Recorded hydrocodone 5 mg-acetaminophen 325 1 - 2 tab PO Q6H PRN Pain #15 tabs 01/10/24 mg tablet pantoprazole 20 mg tablet,delayed 20 mg PO DAILY #30 tabs 01/25/24 release (Protonix) Allergies Allergy/AdvReac Type Severity Reaction Status Date / Time amlodipine Allergy edema Verified 02/10/24 03:57 isosorbide (From Imdur) Allergy intolerance Verified 02/10/24 03:57 tamsulosin (From Flomax) Allergy Dizziness Verified 02/10/24 03:57 [facility] Medical History Dyslipidemia ?E78.5 - Hyperlipidemia, unspecified (ICD-10) ASCVD (arteriosclerotic cardiovascular disease) ?I25.10 - Atherosclerotic heart disease of [place] coronary artery without angina pectoris (ICD-10) Adenomatous colon polyp ?D12.6 - Benign neoplasm of colon, unspecified (ICD-10) Hypertension ?I10 - Essential (primary) hypertension (ICD-10) Type 2 diabetes mellitus ?E11.9 - Type 2 diabetes mellitus without complications (ICD-10) WARD (dyspnea on exertion) ?R06.09 - Other forms of dyspnea (ICD-10) Stage 3a chronic kidney disease ?N18.31 - Chronic kidney disease, stage 3a (ICD-10) Chronic bronchitis ?J42 - Unspecified chronic bronchitis (ICD-10) Depression ?F32.A - Depression, unspecified (ICD-10) History of coronary angiogram ?Z98.890 - Other specified postprocedural states (ICD-10) Surgical History S/P left inguinal hernia repair ?Z98.890 - Other specified postprocedural states (ICD-10) ?Z87.19 - Personal history of other diseases of the digestive system (ICD-10) S/P insertion of non-drug eluting coronary artery stent ?Z95.5 - Presence of coronary angioplasty implant and graft (ICD-10) History of esophagogastroduodenoscopy (EGD) ?Z98.890 - Other specified postprocedural states (ICD-10) History of colonoscopy ?Z98.890 - Other specified postprocedural states (ICD-10) History of coronary artery bypass graft ?Z95.1 - Presence of aortocoronary bypass graft (ICD-10) History of angioplasty ?Z98.62 - Peripheral vascular angioplasty status (ICD-10) Social History What is your current living situation?: unable to answer Problems where you live: unable to answer Problems where you live details: NA In the past 12 months, utilities in danger of being shut off: unable to answer In past 12 months, lack of transportation kept you from medical appts, meetings, work, or getting things needed for daily living: unable to answer In the past 12 mos, have been you worried that your food would run out before you had money to buy more?: unable to answer In the past 12 mos, the food you bought just didn't last and you didn't have money to buy more?: unable to answer Highest level of school completed/degree received: some college, no degree Smoking Status: Never smoker Do you use any of these nicotine containing products: None Second hand tobacco smoke exposure: No How often do you have a drink containing alcohol: never AUDIT-C Alcohol total score: 0 Non-prescribed substance use: denies use Caffeine: Yes (some pop) How often does anyone, including family, friends and others, physically hurt you: unable to answer How often does anyone, including family, friends and others, insult or talk down to you: unable to answer How often does anyone, including family, friends and others, threaten you with harm: unable to answer How often does anyone, including family, friends and others, scream or curse at you: unable to answer service: Yes Exam Narrative: Exam Narrative: General: Well-developed and well-nourished, no acute distress Head: Atraumatic and normocephalic Eyes: Pupils are equal reactive, extraocular motions intact, conjunctiva clear ENT: External nose and ears are normal, posterior pharynx without erythema or exudate Neck: No midline cervical tenderness, full spontaneous range of motion the neck, trachea midline, no adenopathy Heart: Regular rate and rhythm no murmurs or thrills Lungs: Clear to auscultation bilaterally without wheezes or crackles, frequent dry cough Abdomen: Soft, nontender, nondistended with active bowel sounds Musculoskeletal: No tenderness, deformity, or edema Neurologic: Awake, alert, and oriented x3, no gross focal neurologic deficits, cranial nerves intact as tested Psych: Mood and affect are appropriate Skin: No rashes Const: Vital Signs, click to edit/add: Vital Signs - 24 hr 02/10/24 02:05 02/10/24 03:03 02/10/24 03:39 Temperature 97.4 F L Pulse Rate 76 Pulse Rate [Pulse Oximeter] 47 L 80 Respiratory Rate 15 16 Blood Pressure [Ri ght Upper Arm] 185/107 H 138/83 Pulse Oximetry 94 94 98 Oxygen Delivery Me thod Room Air Room Air Room Air Course Course ED Course: Review of chart shows multiple recent emergency department visits, underwent cholecystectomy January 08, subsequently seen in the emergency department January 10 with chest pain and abnormal LFTs, again seen on January 29 with epigastric and low chest pain with negative cardiac evaluation, history of coronary disease. Patient presents today with cough, chest pain, and shortness of breath with activity. Multiple emergency department visits for this with no definite etiology found. Has had prior labs including cardiac labs but no prior evaluation for heart failure or pulmonary embolism. Negative CTA January 10 and negative chest x-ray January 24 but no further with 3 dimensional imaging done. Concern for possible pulmonary edema, atypical pneumonia, dysrhythmia, also consider upper airway irritation as cause of cough. Labs are ordered along with CT PE study and CT of the neck. DuoNeb ordered for test of cure. EKG independently interpreted by me performed at 2:10 a.m. demonstrates sinus rhythm with frequent PVCs rate 94, right bundle-branch block, normal intervals, normal axis, QRS 128, QTC 490, PA 196. Compared to prior of January 2024, frequent PVCs are new. Reevaluation(s) Time of Reevaluation #1: 03:37 Reevaluation #1: Labs independently interpreted by me with mild anemia hemoglobin 11.7 which is stable for the patient, normal CBC, mild hypokalemia and hypomagnesemia which will be replaced intravenously, BNP 1790 consistent with possible mild heart failure, RSV is positive, troponin negative at 0.01. Hepatic panel, lipase, imaging pending. Time of Reevaluation #2: 04:34 Reevaluation #2: CT of the chest independently interpreted by me negative for acute pulmonary embolism, bilateral bronchial wall thickening. CT scan of the neck soft tissues is negative for acute findings. CT findings of bronchial wall thickening and positive RSV consistent with symptoms today. Lipase is normal, hepatic panel is normal. BNP is slightly elevated but no evidence for pulmonary edema or congestive heart failure on CT. Patient was started on prednisone and inhaler for his bronchitis, follow-up with primary care. If symptoms persist consider further cardiac evaluation due to elevated BNP and persistent cough. Vital Signs Vital signs: Initial Vital Signs Temperature 97.4 F L 02/10/24 02:05 Temperature Source Temporal Artery Scan 02/10/24 02:05 Pulse Rate 47 L 02/10/24 02:05 Respiratory Rate 15 02/10/24 02:05 Blood Pressure 185/107 H 02/10/24 02:05 Blood Pressure Mean 133 H 02/10/24 02:05 Blood Pressure Position Supine 02/10/24 02:05 Pulse Oximetry 94 02/10/24 02:05 Oxygen Delivery Method Room Air 02/10/24 02:05 Vital Signs Temperature 97.4 F L 02/10/24 02:05 Pulse Rate 47 L 02/10/24 02:05 Respiratory Rate 15 02/10/24 02:05 Blood Pressure 185/107 H 02/10/24 02:05 Pulse Oximetry 94 02/10/24 02:05 Oxygen Delivery Method Room Air 02/10/24 02:05 Temperature 97.4 F L 02/10/24 02:05 Pulse Rate 80 02/10/24 03:39 Respiratory Rate 16 02/10/24 03:39 Blood Pressure 138/83 02/10/24 03:39 Pulse Oximetry 98 02/10/24 03:39 Oxygen Delivery Method Room Air 02/10/24 03:39 Medications Administered Medications: Generic Name Dose Route Start Last Admin Trade Name Freq PRN Reason Stop Dose Admin Albuterol/Ipratropium 1 neb 02/10/24 02:49 02/10/24 03:13 Iprat-Albut 0.5-2.5 Mg/3 Ml Neb IH 02/10/24 02:50 1 neb ONCE ONE Administration Magnesium Sulfate 2 gm in 50 mls @ 150 mls/hr 02/10/24 03:39 02/10/24 03:44 Magnesium Iv IVPB 02/10/24 03:58 150 mls/hr ONCE ONE Administration Potassium Bicarbonate 25 meq 02/10/24 03:38 02/10/24 03:44 Potassium Bicarb 25 Meq Effervescent Tab PO 02/10/24 03:39 25 meq ONCE ONE Administration Medical Decision Making Lab Data Labs: Lab Results 02/10/24 02/10/24 02/10/24 Range/Units 02:13 02:55 03:00 WBC 9.27 (4.50-11.00) K/uL RBC 3.95 L (4.30-5.90) m/uL Hgb 11.7 L (13.5-17.5) gm/dL Hct 34.2 L (37.0-53.0) % MCV 87 (80-100) fL MCH 30 (26-34) pg MCHC 34 (32-36) gm/dL RDW Coeff of [place] 13.4 (11.5-15.5) % Plt Count 262 (140-440) K/uL Neut % (Auto) 75.7 H (42.0-72.0) % Lymph % (Auto) 12.1 L (20-44) % [place] % (Auto) 10.0 (0.0-11.0) % Eos % (Auto) 2.0 (0.0-7.0) % Baso % (Auto) 0.1 (0.0-3.0) % Neut # (Auto) 7.00 (1.7-7.0) K/uL Lymph # (Auto) 1.10 (0.90-2.90) K/uL [place] # (Auto) 0.90 (0.00-0.90) K/UL Eos # (Auto) 0.19 (0.00-0.50) K/uL Baso # (Auto) 0.01 (0.00-0.30) K/uL Abs Immat Gran (auto) 0.01 (0.00-0.30) K/uL Imm/Tot Granulo (auto) 0.1 % Sodium 135 (135-149) mmol/L Potassium 3.3 L (3.6-5.1) mmol/L Chloride 101 (96-114) mmol/L Carbon Dioxide 26 (20-32) mmol/L Anion Gap 8 (7-15) mEq/L BUN 28 (7-30) mg/dL Creatinine 1.6 H (0.5-1.5) mg/dL Estimated Creat Clear 39.19 Estimated GFR 45 ml/min Glucose 126 H (60-115) mg/dL Calcium 8.8 (8.4-10.6) mg/dL Magnesium 1.3 L (1.5-2.6) mg/dL Total Bilirubin 0.7 (0.1-1.5) mg/dL Direct Bilirubin 0.3 (0.0-0.5) mg/dL AST 19 (12-35) U/L ALT 14 (4-50) U/L Alkaline Phosphatase 98 (40-150) U/L NT-Pro-B Natriuret Pep 1790 pg/mL Total Protein 6.2 (6.0-8.3) g/dL Albumin 3.5 (3.3-5.0) g/dL Lipase 118 (23-300) U/L SARS-CoV-2 (PCR) Negative SARS-CoV-2 (Negative) Influenza Type A (PCR) Negative PCR FLU A (Negative) Influenza Type B (PCR) Negative PCR FLU B (Negative) RSV (PCR) POSITIVE PCR RSV A (Negative) Lab Acknowledgement POC Troponin I 0.01 (0.01-0.04) ng/ml 02/10/24 Range/Units 03:36 WBC (4.50-11.00) K/uL RBC (4.30-5.90) m/uL Hgb (13.5-17.5) gm/dL Hct (37.0-53.0) % MCV (80-100) fL MCH (26-34) pg MCHC (32-36) gm/dL RDW Coeff of [place] (11.5-15.5) % Plt Count (140-440) K/uL Neut % (Auto) (42.0-72.0) % Lymph % (Auto) (20-44) % [place] % (Auto) (0.0-11.0) % Eos % (Auto) (0.0-7.0) % Baso % (Auto) (0.0-3.0) % Neut # (Auto) (1.7-7.0) K/uL Lymph # (Auto) (0.90-2.90) K/uL [place] # (Auto) (0.00-0.90) K/UL Eos # (Auto) (0.00-0.50) K/uL Baso # (Auto) (0.00-0.30) K/uL Abs Immat Gran (auto) (0.00-0.30) K/uL Imm/Tot Granulo (auto) % Sodium (135-149) mmol/L Potassium (3.6-5.1) mmol/L Chloride (96-114) mmol/L Carbon Dioxide (20-32) mmol/L Anion Gap (7-15) mEq/L BUN (7-30) mg/dL Creatinine (0.5-1.5) mg/dL Estimated Creat Clear Estimated GFR ml/min Glucose (60-115) mg/dL Calcium (8.4-10.6) mg/dL Magnesium (1.5-2.6) mg/dL Total Bilirubin (0.1-1.5) mg/dL Direct Bilirubin (0.0-0.5) mg/dL AST (12-35) U/L ALT (4-50) U/L Alkaline Phosphatase (40-150) U/L NT-Pro-B Natriuret Pep pg/mL Total Protein (6.0-8.3) g/dL Albumin (3.3-5.0) g/dL Lipase (23-300) U/L SARS-CoV-2 (PCR) (Negative) Influenza Type A (PCR) (Negative) Influenza Type B (PCR) (Negative) RSV (PCR) (Negative) Lab Acknowledgement Test Added POC Troponin I (0.01-0.04) ng/ml Discharge Plan Discharge Clinical Impression: Respiratory syncytial virus (RSV), Acute bronchitis due to respiratory syncytial virus (RSV), Hypomagnesemia, Acute hypokalemia Patient Disposition: Home, Self-Care Condition: Stable Instructions: Hypokalemia (ED), Acute Bronchitis (ED), Hypomagnesemia (ED), RSV (Respiratory Syncytial Virus) Infection (ED) Additional Instructions: Take prednisone as prescribed Use inhaler 2 puffs every 2 hours while awake for 24 hours, then 2 puffs every 3 hours while awake for 24 hours, then 2 puffs every 4 hours as needed Follow-up with your primary care doctor in 3-5 days Take cough medicine as needed Activity Level: Activity as Tolerated Discharge Diet: Regular Prescriptions: No Action metformin 500 mg tablet 500 mg PO BIDWM lisinopril 20 mg tablet 40 mg PO DAILY glipizide 2.5 mg tablet extended release 24hr 2.5 mg PO DAILY rosuvastatin [Crestor] 40 mg tablet 40 mg PO HS metoprolol tartrate 75 mg tablet 75 mg PO BID acetaminophen 500 mg tablet 1,000 mg PO Q6H PRN aspirin 81 mg tablet,delayed release (DR/EC) 81 mg PO DAILY multivitamin [Daily Multi-Vitamin] Tablet 1 tab PO DAILY nitroglycerin 0.4 mg tablet, sublingual 0.4 mg sublingual Q5-15M PRN Rx Instructions: do not exceed 3 doses per episode hydrocodone-acetaminophen 5-325 mg Tablet 1 - 2 tab PO Q6H PRN (Reason: Pain) Qty: 15 0RF carvedilol 6.25 mg tablet 6.25 mg PO BID pantoprazole [Protonix] 20 mg tablet,delayed release (DR/EC) 20 mg PO DAILY Qty: 30 2RF Follow Up/Referrals: EARNEST MARINO DO [Primary Care Provider] - Stand Alone Forms: [employer] Info Instructions
[2024-02-10 02:05] VITALS: BP 185/107; PULSE 47; RESP 15; TEMP 36.3; O2SAT 94; BMI 24.3
--- NOTE | 2024-02-10 02:46 | CRLHL7_ITS ---
For Patients: As a result of the Century Cures Act, medical imaging exams and procedure reports are released immediately into your electronic medical record. You may view this report before your referring provider. If you have questions, please contact your health care provider. INDICATION: Cough. Sore throat. Hoarse voice. TECHNIQUE: CT soft tissue of the neck was acquired with 95 cc of Isovue 370 IV contrast. COMPARISON: CT chest same day. FINDINGS: Oral cavity, nasopharynx, oropharynx, hypopharynx, larynx and subglottic trachea as imaged show no discrete mucosal lesion. No retropharyngeal fluid or suspicious fluid collection elsewhere in the neck. No CT evidence of tonsillitis or significant airway compromise.. Parotid and submandibular glands: Markedly atrophic and calcified left submandibular gland suggests sequela of prior infection/inflammation. Right submandibular gland and bilateral parotid glands are unremarkable. Thyroid gland: Unremarkable. Vessels: Major vascular structures are grossly patent. Paranasal sinuses and orbits: Near-complete opacification of the maxillary and ethmoid sinuses, left greater than right. Near-complete opacification the left frontal sinus. Sphenoid sinuses clear. No discrete air-fluid level. Mastoid air cells are clear. Orbits as imaged are unremarkable. Bones: No acute or suspicious osseous abnormality. Degenerative changes of the spine. Lung apices: Visualized lung apices are clear. IMPRESSION: 1. No CT evidence of tonsillitis. No suspicious fluid collection in the neck. 2. Extensive paranasal sinus disease, of uncertain significance. Dictated by Lv Nuñez MD @ 02/10/2024 4:26:20 AM Please note that all CT scans at this facility use dose modulation, iterative reconstruction, and/or weight-based dosing when appropriate to reduce radiation dose to as low as reasonably achievable. Dictated by: Lv Nuñez MD @ 02/10/2024 04:26:38 (Electronically Signed)
--- NOTE | 2024-02-10 02:47 | CRLHL7_ITS ---
For Patients: As a result of the Century Cures Act, medical imaging exams and procedure reports are released immediately into your electronic medical record. You may view this report before your referring provider. If you have questions, please contact your health care provider. INDICATION: Cough. Dyspnea. TECHNIQUE: CT chest pulmonary angiogram acquired with 95 cc of Isovue 370 IV contrast. COMPARISON: CT chest with contrast 01/11/2024. FINDINGS: Cardiovascular structures: No evidence of pulmonary embolus. Aortic atherosclerosis. Thoracic aorta is normal in caliber. Stable heart size with prior median sternotomy, CABG and enterprise coronary artery calcifications. Mediastinum and alexander: No pathologic lymphadenopathy. Lungs: No pneumothorax. Mild bilateral bronchial wall thickening greatest at the lung bases. No discrete endobronchial lesion. Mild bibasilar atelectasis. Lungs are otherwise clear. Pleura and pericardium: No effusions. Chest wall and axilla: Unremarkable. Bones: Degenerative changes. No acute or suspicious osseous abnormality. Upper abdomen: Cholecystectomy. Mild splenomegaly, as before. The visualized upper abdomen is otherwise unremarkable. IMPRESSION: 1. No evidence of pulmonary embolus. 2. Bilateral bronchial wall thickening is likely infectious/inflammatory. Mild bibasilar atelectasis. No acute airspace disease. Dictated by Lv Nuñez MD @ 02/10/2024 4:21:18 AM Please note that all CT scans at this facility use dose modulation, iterative reconstruction, and/or weight-based dosing when appropriate to reduce radiation dose to as low as reasonably achievable. Dictated by: Lv Nuñez MD @ 02/10/2024 04:21:32 (Electronically Signed)
--- OUTSIDE RECORDS SUMMARY | 2024-02-10 02:50 | XMS_ITS | Clinical Summary ---
Author Organization [employer] [facility] Address [place], [place] [address] Care Team Providers Care Platform Consultant Name Role Phone Nora Siegel DO Primary Care Provider [phone] Isac Baumann MD Unavailable Allergies Active Allergy [...] cardiovascular disease) 08/11/2005 Overview (12/25/2020): -Non Q UT 2000 -Stenting to RCA 07/2000 -Stenting to [...] Type Department Care Team Description 02/06/2024 Telephone [facility] [address] [place] [address] Alejandra Solis MD 02/01/2024 10:30 AM FISH EGG PACKER Orders Only [facility] [address] [place] [address] [place], [place] 02/01/2024 Travel 01/25/2024 Orders Only [facility] Scanner 1 scan: (1-Ord) [place], ABDOMEN PELVIS W/CON, 01/25/2024 01/25/2024 Orders Only [facility] Scanner 1 scan: (1-Ord) [facility], XR CHEST 2V, 01/25/2024 01/23/2024 1:30 PM FISH EGG PACKER Office Visit [facility] [place] [address] Alejandra Solis MD Post-op (lap jeniffer 01/09/24) 01/23/2024 Travel 01/19/2024 1:15 PM FISH EGG PACKER Ancillary Procedure [facility] [address] [place] [address] 01/19/2024 12:25 PM FISH EGG PACKER Office Visit [facility] [address] [place] [address] Nora Siegel DO Medicare ANNUAL (subsequent) Visit (73 year old ) 01/19/2024 Telephone [facility] [address] [address] Ambrose Salcedo MD Screening 01/19/2024 Travel 01/18/2024 Orders Only [facility] [address] [place] [address] Alejandra Solis MD 1 scan: (1-Ord) [facility], ABDOMEN WO, 01/17/2024 01/16/2024 1:00 PM FISH EGG PACKER Office Visit [facility] [address] [place] [address] Alejandra Solis MD Post-op (SEEN IN ER 01/11/24-lap jeniffer 01/09/24) 01/16/2024 Travel 01/11/2024 Orders Only [facility] Scanner 1 scan: (1-Ord) [facility], CT ABD PELVIS W/CON, 01/11/2024 01/11/2024 Orders Only [facility] Scanner 1 scan: (1-Ord) [facility], CT ANGIO CHEST , 01/11/2024 01/10/2024 Orders Only [facility] [address] [facility] [address] Nora Siegel DO <No scans attached> 01/10/2024 Travel 01/10/2024 Lab Requisition [facility] [phone] Alejandra Solis MD 01/09/2024 8:00 AM FISH EGG PACKER Office Visit [facility] at [facility] [address] [facility] [address] Alejandra Solis MD 01/09/2024 Orders Only [facility] Scanner 1 scan: (1-Ord) [facility], LAPAROSCOPIC CHOLECYSTECTOMY, 01/09/2024 01/09/2024 Orders Only [facility] Scanner 1 scan: (1-Ord) [facility], US GALLBLADDER, 01/09/2024 01/09/2024 Orders Only [facility] Scanner 1 scan: (1-Ord) [place], XR CHEST 2V, 01/09/2024 01/09/2024 Orders Only [facility] Scanner 1 scan: (1-Ord) [place], ABDOMEN PELVIS W CON, 01/09/2024 11/20/2023 9:30 AM CDT Orders Only [facility] [address] [facility] [address] Lab, [place] [facility] 11/20/2023 Refill [facility] [address] [place] [address] Nora Siegel DO Refill Request (Metoprolol Tartrate) 11/20/2023 Travel 11/15/2023 Orders Only [facility] [address] [facility] [address] [place] [address] Isac Baumann MD Lab (Order update) 11/14/2023 2:15 PM CDT Office Visit [facility] [address] [place] [address] Alejandra Solis MD Post-op (LAPAROSCOPIC LEFT INGUINAL HERNIA REPAIR 10/30/23) 11/14/2023 Travel 11/11/2023 Refill [facility] [address] [place], [place] [id number] Nora Siegel DO Refill Request (Lisinopril) from Last 3 Months Immunizations Name Administration Dates Next Due AMB Influenza, IIV3 (Age >=3 years)(Flu Clinic Only) 01/13/2010 COVID-19 vaccine ([employer] 30mcg/0.3mL) PF, MDV 12/28/2020,05/01/2020,04/10/2020 Influenza, High-dose Inactivated [...] oz pur e alcohol) Alcoholic Drinks/day: 0 [facility] Utilities Answer Date Recorded Do you [...] on file Legal Sex Male 5:25 AM FISH EGG PACKER Gender Identity Not on file Sexual Orientation Not on file Obstetrics History Last Filed Vital Signs Vital Sign Reading Time Taken Comments Blood Pressure 152/79 01/23/2024 1:06 PM FISH EGG PACKER Pulse 72 01/23/2024 1:06 PM FISH EGG PACKER Temperature 36.8 C (98.3 F) 03/17/2023 11:28 AM FISH EGG PACKER Respiratory Rate 16 03/17/2023 11:28 AM FISH EGG PACKER Oxygen Saturation 99% 01/23/2024 1:06 PM FISH EGG PACKER Inhaled Oxygen Concentration - - Weight 74 kg (163 lb 1.6 oz) 01/23/2024 1:06 PM FISH EGG PACKER Height 172.7 cm (5' 8) 01/19/2024 12:34 PM FISH EGG PACKER Body Mass Index 24.8 01/19/2024 12:34 PM FISH EGG PACKER Plan of Treatment Upcoming Encounters Date Type Department Care Team (Late st Contact Info) Description 03/18/2024 9:20 AM FISH EGG PACKER Office Visit [facility] [address] [place] [address] Nora Siegel DO [address] [place] [address] 04/05/2024 9:45 AM FISH EGG PACKER Office Visit [facility] [address] [facility] [place] [address] Ambrose Salcedo MD [address] [place] [address] Health Maintenance Due Date Last Done Comments [...] HEPATIC FUNCTION PANEL Routine 4 9:59 AM FISH EGG PACKER Elevated LFTs SCAN-CT INTERPRETATION 4 12:00 AM FISH EGG PACKER SCAN-RADIOLOGY REPORT 01/25/2024 12:00 AM FISH EGG PACKER XR CHEST 2 VIEWS PA AND LATERAL STAT 01/19/2024 1:26 PM FISH EGG PACKER Acute cough HEMOGLOBIN A1C Routine 01/19/2024 1:13 PM FISH EGG PACKER Type 2 diabetes mellitus with stage 3a chronic kidney disease, without long-term current use of insulin (HC) LIPID PANEL W REFLEX MEASURED LDL Routine 01/19/2024 1:13 PM FISH EGG PACKER Type 2 diabetes mellitus with stage 3a chronic kidney disease, without long-term current use of insulin (HC) BASIC METABOLIC PANEL Routine 01/19/2024 1:13 PM FISH EGG PACKER Type 2 diabetes mellitus with stage 3a chronic kidney disease, without long-term current use of insulin (HC) MR ABDOMEN MRCP WO STAT 01/17/2024 12 :00 AM FISH EGG PACKER Elevated LFTs LIPASE STAT 01/16/2024 1:10 PM FISH EGG PACKER Elevated LFTs HEPATIC FUNCTION PANEL STAT 4 1:10 PM FISH EGG PACKER Elevated LFTs CBC WITH AUTO DIFFERENTIAL Routine 01/16/2024 1:10 PM FISH EGG PACKER Elevated LFTs Post-op pain SCAN-CT INTERPRETATION 4 12:00 AM FISH EGG PACKER SCAN-CT INTERPRETATION 4 12:00 AM FISH EGG PACKER LAB TRACKING EVENT Routine 01/09/2024 6: 45 PM FISH EGG PACKER PATH TISSUE EXAM Routine 01/09/2024 6:43 PM FISH EGG PACKER SCAN-ULTRASOUND REPORT 4 12:00 AM FISH EGG PACKER SCAN-RADIOLOGY REPORT 01/09/2024 12:00 AM FISH EGG PACKER SCAN-CT INTERPRETATION 12:00 AM FISH EGG PACKER SCAN-OPERATIVE/PROCEDUR E REPORT 01/09/2024 12:00 AM FISH EGG PACKER BASIC METABOLIC PANEL Routine 11/20/2023 9:28 AM CDT Stage 3b chronic kidney disease (HC) ANTI HCV Routine 11/05/2020 8:31 AM CDT Encounter for hepatitis C screening test for low risk patient COLONOSCOPY 12/10/2019 9:04 AM FISH EGG PACKER US AORTA Routine 11/08/2019 9:55 AM CDT Screening for AAA (abdominal aortic aneurysm) from Last 3 Months or Most Recently Relevant to Health Maintenance Results * (ABNORMAL) HEPATIC FUNCTION PANEL (02/01/2024 9:59 AM FISH EGG PACKER) Only the most recent of2 resultswithin the [...] BLOOD SPECIMEN / Unknown 02/01/2024 9:59 AM FISH EGG PACKER 02/01/2024 9:59 AM FISH EGG PACKER Alejandra Solis MD CHEMISTRY Final Re sult [email or web address] [address] [place] [address], [facility] [address] [place] [address] * SCAN-RADIOLOGY REPORT (01/25/2024 12:00 AM FISH EGG PACKER) Only the most recent of2 resultswithin the time period is included. Anatomical Region Laterality Modality Other us Scanner OTHER Final Result * SCAN-CT INTERPRETATION (01/25/2024 12:00 AM FISH EGG PACKER) Only the most recent of4 resultswithin the time period is included. Anatomical Region Laterality Modality Other us Scanner OTHER Final Result * XR CHEST 2 VIEWS PA AND LATERAL (01/19/2024 1:26 PM FISH EGG PACKER) Anatomical Region Laterality Modality CHEST, THORAX, Lung, HEART Compu damien Radiography 01/19/2024 1:34 PM FISH EGG PACKER Narrative 01/19/2024 1:34 PM FISH EGG PACKER For Patients: As a result of the [...] MD @ 01/19/2024 1:34:22 PM (Electronically Signed) [facility] Lennyjose alberto DO GENERAL IMAGING Final Result * (ABNORMAL) HEMOGLOBIN A1C (01/19/2024 1:13 PM FISH EGG PACKER) HEMOGLOBIN A1C 8.0(H) <5.7 % of total [...] BLOOD SPECIMEN / Unknown 01/19/2024 1:13 PM FISH EGG PACKER 01/19/2024 1:13 PM FISH EGG PACKER [employer] Lennyjose alberto WHEELER CHEMISTRY Final Result [facility] [address] [place] [address], [facility] [address] [place] [address] * (ABNORMAL) LIPID PANEL W REFLEX MEASURED LDL (01/19/2024 1:13 PM FISH EGG PACKER) CHOLESTEROL, TOTAL 87 <200 mg/dL [facility] HDL CHOLESTEROL 28(L) > OR = 40 mg/dL [employer] melissa Brown TRIGLYCERIDES 160(H) <150 mg/dL [facility] melissa Brown LDL-CHOLESTEROL 35 mg/dL (calc) [employer] oantonio Brown Comment: Reference range: <100 Desirable range <100 mg/dL for primary prevention; <70 mg/dL for patients with CHD or diabetic patients with > or = 2 CHD risk factors. LDL-C is now calculated using the Aminata calculation, which is a validated novel method providing better accuracy than the Friedewald equation in the estimation of LDL-C. Ambrose KEYES et al. SUSAN. 2013;310(19): 2875-7181 (http://education.Foldax/faq/DAF348) CHOL/HDLC RATIO 3.1 <5.0 (calc) [facility] melissa Brown NON HDL CHOLESTEROL 59 <130 mg/dL (calc) [employer] melissa Brown Comment: For patients with diabetes plus 1 major ASCVD risk factor, treating to a non-HDL-C goal of <100 mg/dL (LDL-C of <70 mg/dL) is considered a therapeutic option. Blood BLOOD SPECIMEN / Unknown 01/19/2024 1:13 PM FISH EGG PACKER 01/19/2024 1:13 PM FISH EGG PACKER us Nora Siegel DO CHEMISTRY Final Result [facility] [address] [place] [address], [facility] [address] [place] [address] * (ABNORMAL) BASIC METABOLIC PANEL (01/19/2024 1:13 PM FISH EGG PACKER) Only the most recent of2 resultswithin the time period is included. GLUCOSE 262(H) 65 - 99 mg/dL [facility] melissa Brown Comment: Fasting reference interval For [...] BLOOD SPECIMEN / Unknown 01/19/2024 1:13 PM FISH EGG PACKER 01/19/2024 1:13 PM FISH EGG PACKER Nora Siegel DO CHEMISTRY Final Result [facility] [address] [place] [address], [facility] [address] [place] [address] * MR ABDOMEN MRCP WO (01/17/2024 12:00 AM FISH EGG PACKER) Anatomical Region Laterality Modality Abdomen, LIVER, PANCREAS, KIDNEYS, AORTA Magnetic Resonance us Alejandra Solis MD MR Final Re sult * CBC AND DIFFERENTIAL (01/16/2024 1:10 PM FISH EGG PACKER) WHITE BLOOD CELL COUNT 8.3 3.8 - 10.8 Thousand/u L [facility] RED BLOOD CELL COUNT 5.18 4.20 - 5.80 Million/uL [employer] HEMOGLOBIN 15.6 13.2 - 17.1 g/dL [employer] HEMATOCRIT 47.0 38.5 - 50.0 [...] BLOOD SPECIMEN / Unknown 01/16/2024 1:10 PM FISH EGG PACKER 01/16/2024 1:11 PM FISH EGG PACKER us Alejandra Solis MD HEMATOLOGY Final Re sult [facility] [address] [place] [address], [facility] [address] [place] [address] * STAT Lipase (01/16/2024 1:10 PM FISH EGG PACKER) LIPASE 37.2 13.0 - 60.0 IU/L 01/16/2024 3:44 PM FISH EGG PACKER [facility] Blood BLOOD SPECIMEN / Unknown [facility] / Unknown 01/16/2024 1:10 PM FISH EGG PACKER 01/16/2024 1:10 PM FISH EGG PACKER Alejandra Solis MD CHEMISTRY Final Re sult Performing Organization Address [facility] Co de Phone Number [facility] [address] [place] [address] * LAB TRACKING EVENT (01/09/2024 6:45 PM FISH EGG PACKER) Other (Other) Client Collect / Unknown 01/09/2024 6:45 PM FISH EGG PACKER 01/10/2024 2:58 PM FISH EGG PACKER us Alejandra Solis MD LAB BILL ONLY Final Re sult Performing Organization Address [facility] Co de Phone Number [facility] [address] [place] [id number], [place] * PATH TISSUE EXAM (01/09/2024 6:43 PM FISH EGG PACKER) Case Report Pathology Report Case: [id number] Authorizing Provider: Alejandra Solis MD Collected: 01/09/2024 1843 Ordering Location: [facility] Received: 01/10/2024 1743 Pathologist: Jose C Alcazar MD Specimen: Gallbladder 01/12/2024 12:42 PM FISH EGG PACKER [facility] Final Diagnosis A) GALLBLADDER, CHOLECYSTECTOMY: 1. Chronic cholecystitis 2. Cholelithiasis 3. Negative for dysplasia and malignancy 01/12/2024 12:42 PM FISH EGG PACKER [facility] EN[facility]AT[facility] Clinical Information Cholelithiasis 01/12/2024 12:42 PM FISH EGG PACKER [facility] Gross Description A) Received [...] No cystic duct lymph node is identified. Fixture Relamper sections are submitted in one cassette. SJM 01/10/2024 01/12/2024 12:42 PM FISH EGG PACKER [facility] Microscopic Description The final diagnosis is based on microscopic examination of appropriate sections of all specimens. 01/12/2024 12:42 PM FISH EGG PACKER [facility] Additional Information Interpreted at [facility] - [address] [facility] [address], [place] [address] 01/12/2024 12:42 PM FISH EGG PACKER [facility] Other SPECIMEN FROM GALLBLADDER / Unknown 01/09/2024 6:43 PM FISH EGG PACKER 01/10/2024 5:43 PM FISH EGG PACKER us Alejandra Solis MD PATHOLOGY/CYTOLOGY Final Result Performing Organization Address City/State/[facility] Co de Phone Number [facility] [address] [place] [address], [place] * SCAN-OPERATIVE/PROCEDURE REPORT (01/09/2024 12:00 AM FISH EGG PACKER) us Scanner OTHER Final Result * SCAN-ULTRASOUND REPORT (01/09/2024 12:00 AM FISH EGG PACKER) Anatomical Region Laterality Modality Other us Scanner OTHER Final Result * ANTI HCV (11/05/2020 8:31 AM CDT) HEPATITIS C ANTIBODY Non-React thad Non-React thad 11/05/2020 3:35 PM CDT [facility] Comment:Antibodies to HCV no t detected; does not exclude the possibility of exposure to HCV. Blood BLOOD SPECIMEN / Unknown Venipuncture / Unknown 11/05/2020 8:31 AM CDT 11/05/2020 8:31 AM CDT us Nora Siegel DO SEND OUTS Final Result [facility] [address] [place] [address], [place] * COLONOSCOPY (12/10/2019 9:04 AM FISH EGG PACKER) 12/10/2019 9:04 AM FISH EGG PACKER Narrative Transcriptions Ambrose Salcedo MD - 12/10/2019 [...] reponse to care. [facility] and nursing notes for moderate sedation details. Total physician intraservice time was 27 minutes. Ambrose Salcedo MD 12/10/2019 11:09:49 AM This report has been signed electronically. Note Initiated On: 12/10/2019 9:04 AM Procedure Code(s): --- Professional --- 45261, Colonoscopy, flexible; with removalof tumor(s), polyp(s), or other lesion(s) bylouis technique 56978, 59, Colonoscopy, flexible; withbiopsy, single or multiple Diagnosis Code(s): --- Professional --- Z86.010, Personal history of colonicpolyps CPT copyright 2019 [employer]. All rights reserved. The codes documented in this report are preliminary and upon plow and boring machine tender reviewmay be revised to meet current compliance [...] 7:13 AM 03/23/2012 12:20 PM Care Teams Platform Consultant Relationship Specialty Start Date End Date Nora Siegel DO [address] [place] [address] PCP - General Family Practice 11/06/20 [place] [address] [place] [address] Nephrology 10/03/23
--- OUTSIDE RECORDS SUMMARY | 2024-02-10 02:50 | XMS_ITS | Continuity of Care Document ---
Author Name NwHIN User [email or web address] llowed Address Unknown Organization Unknown Address Unknown Procedures FILTER APPLIED:Only known Procedures with Onset Date within the last 5 years Procedure Date Procedure Provider Additiona l Information Status CT ANGIOGRAPHY CHEST (00212) Completed EMERGENCY DEPT VISIT MOD MDM (88756) Completed URINE CULTURE/COLONY COUNT (39932) Completed AUTOMATED RETICULOCYTE COUNT (26809) Completed URINALYSIS AUTO W/SCOPE (64404) Completed ROUTINE VENIPUNCTURE (75988) Completed ELECTROCARDIOGRAM TRACING (52033) Completed COMPLETE CBC W/AUTO DIFF WBC (79555) Completed ASSAY OF TROPONIN QUANT (17785) Completed ASSAY OF NATRIURETIC PEPTIDE (77679) Completed ASSAY OF MAGNESIUM (87656) Completed METABOLIC PANEL TOTAL CA (39855) Completed EMERGENCY DEPT VISIT HI MDM (04315) Completed MEASURE BLOOD OXYGEN LEVEL (73366) Completed ELECTROCARDIOGRAM TRACING (02574) Completed EMERGENCY DEPT VISIT MOD MDM (58848) Completed RESP VIRUS 3-5 TARGETS (64210) Completed C-REACTIVE PROTEIN (23553) Completed ROUTINE VENIPUNCTURE (76401) Completed COMPLETE CBC W/AUTO DIFF WBC (07622) Completed ASSAY OF TROPONIN QUANT (57239) Completed ASSAY OF LACTIC ACID (14398) Completed COMPREHEN METABOLIC PANEL (44521) Completed X-RAY EXAM CHEST 2 VIEWS (90408) Completed FIBRIN DEGRADATION QUANT (32176) Completed Encounters FILTER APPLIED:Only known Encounters with Admission Date within the last 5 years Encounter Location Admission Discharge Billing Code Consultant Brigitte chau Emergency Srikanth Rivera Emergency Shabnam Rodarte
[2024-02-10 02:51] LABS: PCR FLU A Negative PCR FLU A (Negative); PCR FLU B Negative PCR FLU B (Negative); PCR RSV POSITIVE PCR RSV (Negative); SARS PCR* Negative SARS-CoV-2 (Negative)
[2024-02-10 03:03] VITALS: PULSE 76; O2SAT 94
[2024-02-10 03:03] LABS: Basophils Absolute Auto 0.01 K/uL (0.00-0.30); Basophils Percent Auto 0.1 % (0.0-3.0); Eosinophils Absolute Auto 0.19 K/uL (0.00-0.50); Hematocrit 34.2 % (37.0-53.0); Hemoglobin* 11.7 gm/dL (13.5-17.5); Immature Granulocytes Abs Auto 0.01 K/uL (0.00-0.30); Immature Granulocytes Pct Auto 0.1 %; Lymphocytes Percent Auto 12.1 % (20-44); Mean Corpuscular HGB Conc 34 gm/dL (32-36); Mean Corpuscular Hemoglobin 30 pg (26-34); Mean Corpuscular Volume 87 fL (80-100); Neutrophils Percent Auto 75.7 % (42.0-72.0); Platelet Count* 262 K/uL (140-440); RDW Coefficient of Variation % 13.4 % (11.5-15.5); Red Blood Count 3.95 m/uL (4.30-5.90); White Blood Count* 9.27 K/uL (4.50-11.00)
[2024-02-10 03:07] LABS: Troponin, Point-of-Care* 0.01 ng/ml (0.01-0.04)
[2024-02-10] MEDS: IPRAT-ALBUT 0.5-2.5 MG/3 ML NEB 1 NEB IH (03:13)
[2024-02-10 03:14] LABS: Slide Review Reflex No
[2024-02-10 03:18] LABS: Chloride* 101 mmol/L (96-114); Potassium* 3.3 mmol/L (3.6-5.1); Sodium* 135 mmol/L (135-149)
[2024-02-10 03:20] LABS: Creatinine* 1.6 mg/dL (0.5-1.5); Est. Creatinine Clearance* 39.19; Estimated Glomerular Filt Rate 45 ml/min
[2024-02-10 03:21] LABS: Anion Gap 8 mEq/L (7-15); Blood Urea Nitrogen* 28 mg/dL (7-30); Calcium* 8.8 mg/dL (8.4-10.6); Carbon Dioxide* 26 mmol/L (20-32); Glucose* 126 mg/dL (60-115); Magnesium* 1.3 mg/dL (1.5-2.6)
[2024-02-10 03:32] LABS: NT Pro B Type NatriureticPept* 1790 pg/mL
[2024-02-10 03:39] VITALS: BP 138/83; PULSE 80; RESP 16; O2SAT 98
[2024-02-10] MEDS: MAGNESIUM IV 2 GM/50 ML PIGGYBACK IVPB (03:44)
[2024-02-10] MEDS: POTASSIUM BICARB 25 MEQ EFFERVESCENT TAB PO (03:44)
[2024-02-10 03:45] LABS: Albumin* 3.5 g/dL (3.3-5.0)
[2024-02-10 03:48] LABS: Aspartate Amino Transferase* 19 U/L (12-35); Bilirubin Direct* 0.3 mg/dL (0.0-0.5); Bilirubin Total* 0.7 mg/dL (0.1-1.5); Total Protein* 6.2 g/dL (6.0-8.3)
[2024-02-10 03:49] LABS: Alanine Aminotransferase* 14 U/L (4-50); Alkaline Phosphatase* 98 U/L (40-150); Lipase* 118 U/L (23-300)
--- NOTE | 2024-02-10 04:52 | PC.NURSE ---
pt ambulate to BR with steady gait.
[2024-02-10] MEDS: METHYLPREDNISOLONE SOD SUCC 62.5 MG/ML (125) 125 MG IVP (04:53)
== END 2024-02-10 04:58 | disposition home or self-care (01) ==
PROVIDERS: Emergency Provider Family Medicine; PCP Student in an Organized Health Care Education/Training Program
DX: J20.5 Acute bronchitis due to respiratory syncytial virus (principal); E83.42 Hypomagnesemia; E87.6 Hypokalemia
CPT/HCPCS: 36415; 70491; 71275; 80048; 80076; 83690; 83735; 83880; 84484; 85025; 87631; 93005; 96365; 96375; 99284; 99285; A9270; J2919; J3475; Q9967